=== PATIENT | female | born 1945 | race Caucasian/White ===

== ENCOUNTER → 2019-05-09 | Outpatient (CLI) | payer MEDICARE ==
--- NOTE | 2019-05-10 07:15 | ECHOF ---
Referral Reason:I10 hypertention MEASUREMENTS -------- HEIGHT: 160.0 cm WEIGHT: 83.9 kg BP: 179/113 RVIDd: 2.9 cm (< 3.3) IVSd: 1.5 cm (0.6 - 1.1) LVIDd: 3.6 cm (3.9 - 5.3) LVPWd: 1.3 cm (0.6 - 1.1) IVSs: 2.1 cm LVIDs: 2.5 cm LVPWs: 1.7 cm LA Diam: 3.2 cm (2.7 - 3.8) LAESV Index (A-L): 19.73 ml/m Ao Diam: 3.2 cm (2.0 - 3.7) AV Cusp: 1.9 cm (1.5 - 2.6) MV E Otoneil: 0.58 m/s MV DecT: 218 ms MV A Otoniel: 0.64 m/s MV E/A Ratio: 0.90 RAP: 5.00 mmHg RVSP: 27.32 mmHg FINDINGS -------- Sinus rhythm. This was a technically adequate study. The left ventricular size is normal. There is moderate concentric left ventricular hypertrophy. O verall left ventricular systolic function is normal with, an EF between 60 - 65 %. The right ventricle is normal in size. Normal LA size by volume 22+/-6 ml/m2. The right atrium is normal in size. Interatrial and interventricular septum intact. The aortic valve is trileaflet and appears structurally normal. The mitral valve is normal. Mild tricuspid regurgitation present. Right ventricular systolic pressure is normal at < 35 mmHg. The pulmonic valve was not well visualized. The aortic root size is normal. IVC Not well visulized. There is no pericardial effusion. CONCLUSIONS -------- 1. Sinus rhythm. 2. This was a technically adequate study. 3. The left ventricular size is normal. 4. There is moderate concentric left ventricular hypertrophy. 5. The right ventricle is normal in size. 6. Normal LA size by volume 22+/-6 ml/m2. 7. The right atrium is normal in size. 8. Interatrial and interventricular septum intact. 9. The aortic valve is trileaflet and appears structurally normal. 10. The mitral valve is normal. 11. Mild tricuspid regurgitation present. 12. Right ventricular systolic pressure is normal at < 35 mmHg. 13. The pulmonic valve was not well visualized. 14. The aortic root size is normal. 15. IVC Not well visulized. 16. There is no pericardial effusion. ZOOLOGY PROFESSOR: Nitza Rodríguez RDCS
--- NOTE | 2019-05-10 08:25 | EST ---
EXERCISE STRESS AGE: 73 SEX: F HT: 5'3" WT: 185 PROTOCOL: Jack Stress Test STAGE: 2 DURATION OF EXERCISE: 4:00 HEART RATE REST: 84 BLOOD PRESSURE REST: 179/113 MAXIMUM HEART RATE ACHIEVED: 140 MAXIMUM BLOOD PRESSURE: 259/105 85% MPHR: 127 100% MPHR: 148 METS: 5.6 INDICATIONS: Chest pain. CLINICAL INFORMATION: Baseline EKG revealed normal sinus rhythm without significant ST-T changes. There was poor R-wave progression over precordial leads patient walked on standard Jack protocol for 4 minutes, achieved a maximal heart rate of 140 beats per minute. Developed some chest discomfort. EKG revealed upsloping nonspecific ST-segment changes. The patient was hypertensive to begin with 179/104 and went up to 234/107/ EKG did not reveal any clear-cut ST-segment changes to indicate ischemia. Exercise capacity was limited. By EKG criteria, this is considered technically inconclusive stress test because of minor resting EKG changes. If myocardial ischemia cannot be excluded, exercise capacity was limited. Patient was hypertensive to begin with and had hypertensive response to exercise. If myocardial ischemia is suspected, this stress test should be repeated with better blood pressure control and pharmacological stress test may be a better approach. MMODL / IJN: [id number] /
== END | disposition home or self-care (01) ==
LOC: RADNMMAIN 09:52
PROVIDERS: ATTEND Internal Medicine
DX: I07.1 Rheumatic tricuspid insufficiency (principal); I10 Essential (primary) hypertension; R94.39 Abnormal result of other cardiovascular function study
CPT/HCPCS: 93017; 93306

== ENCOUNTER 2019-07-14 15:04 | Inpatient (IN) | payer MEDICARE ==
--- NOTE | 2019-07-14 17:54 | P.PN ---
Progress Note - Text Patient complained of being intolerant to amlodipine. We received a phone call this morning and we are asked to comment to the office She was seen by Lyndsey George She was complaining of discomfort in the chest at home. She had chest pain last night that lasted several hours and she had chest pain this morning again when she went to the store The stress test was read by Dr. Jimenez and was abnormal and showed evidence for ischemia Twelve-lead ECG shows shows sinus rhythm with a mildly prolonged NM interval and QRS width 121 ms with a left bundle branch block type morphology with some ST segment abnormality in V1 and V2 slightly different from baseline and no other definite ST segment abnormalities. She was sent to [facility] as a direct admit to [facility]. for admission and coronary angiography tomorrow She states she is intolerant of atorvastatin and losartan and possibly also amlodipine/benazepril and she gets dry heaves and throws up. She does not have a true ALLERGY. She state that she has been intolerant of multiple antihypertensive medications prescribed over the last [address] Lawton Currently the patient is chest pain-free Blood pressure is elevated 153/93 mmHg Normal heart sounds no murmurs or gallops no rub Plan Aspirin Heparin IV Crestor 20 mg by mouth daily Start carvedilol 6.25 mg twice daily Hold all other antihypertensive medications Prepare for coronary angiography tomorrow Admission labs
[2019-07-14] MEDS ORDERED: ALPRAZolam 0.5 MG TAB PO PRN (17:57)
[2019-07-14] MEDS ORDERED: HEPARIN SODIUM,PORCINE 5,000 UNIT/ML 1 ML VIAL IV PRN (18:16)
[2019-07-14] MEDS ORDERED: ASPIRIN 81 MG PO STA (18:16)
[2019-07-14] MEDS ORDERED: HEPARIN SODIUM,PORCINE 5,000 UNIT/ML 1 ML VIAL IV ONE (18:30)
[2019-07-14] MEDS ORDERED: METOPROLOL SUCCINATE (ER) 50 MG TAB.ER.24H PO SCH (18:30)
[2019-07-14] MEDS ORDERED: amLODIPine 10 MG TAB PO SCH (18:30)
[2019-07-14] MEDS ORDERED: CARVEDILOL 6.25 MG TAB PO SCH (18:30)
[2019-07-14] MEDS: NITROGLYCERIN SL TABS 0.4 MG TAB SUBLINGUAL PRN (18:58)
[2019-07-14] MEDS ORDERED: NITROGLYCERIN OINT 1 INCH/GM PACKET TOPICAL ONE (19:01)
[2019-07-14 19:33] LABS: Basophils # (A) 0.1 k/uL (0-0.2); Basophils % (A) 1 %; Eosinophils # (A) 0.1 k/uL (0-0.7); Eosinophils % (A) 1 %; HCT 47.1 % (34.0-46.0); HGB 15.8 gm/dL (11.4-16.0); Lymphocytes # (A) 3.8 k/uL (1.0-4.8); Lymphocytes % (A) 32 %; MCH 29.4 pg (25.0-35.0); MCHC 33.5 g/dL (31.0-37.0); MCV 87.7 fL (80.0-100.0); Mean Platelet Volume 8.5; Monocytes # (A) 0.9 k/uL (0-1.0); Monocytes % (A) 8 %; Neutrophils # (A) 6.7 k/uL (1.3-7.7); Neutrophils % (A) 57 %; Platelet Count 356 k/uL (150-450); RBC 5.37 m/uL (3.80-5.40); WBC 11.8 k/uL (3.8-10.6)
[2019-07-14 19:48] LABS: Albumin 5.2 g/dL (3.5-5.0); Calcium 10.7 mg/dL (8.4-10.2); Potassium 3.6 mmol/L (3.5-5.1); Total Bilirubin 0.7 mg/dL (0.2-1.3); Total Protein 8.7 g/dL (6.3-8.2)
[2019-07-14] MEDS: HEPARIN SOD,PORK IN 0.45% NACL 25,000 UNIT in 0.45% NACL 1 250ML.BAG IV SCH (20:07)
[2019-07-14 20:40] LABS: Partial Thromboplastin Time 24.2 sec (22.0-30.0); Prothrombin Time 10.3 sec (9.0-12.0)
[2019-07-14] MEDS: hydrALAZINE HCL 25 MG TAB PO SCH (21:00)
[2019-07-14] MEDS: ROSUVASTATIN CALCIUM 20 MG PO SCH (21:01)
[2019-07-14] MEDS: METOPROLOL SUCCINATE (ER) 50 MG TAB.ER.24H PO SCH (21:01)
[2019-07-14] MEDS: NITROGLYCERIN OINT 1 INCH/GM PACKET TOPICAL SCH (21:03)
[2019-07-15] MEDS: NITROGLYCERIN OINT 1 INCH/GM PACKET TOPICAL SCH ×5 (00:30→23:53)
[2019-07-15] MEDS ORDERED: NITROGLYCERIN SL TABS 0.4 MG TAB SUBLINGUAL ONE ×2 (03:32→07:51)
[2019-07-15 04:34] LABS: Basophils # (A) 0.1 k/uL (0-0.2); Basophils % (A) 1 %; Eosinophils # (A) 0.1 k/uL (0-0.7); Eosinophils % (A) 1 %; HCT 41.4 % (34.0-46.0); Lymphocytes # (A) 3.4 k/uL (1.0-4.8); Lymphocytes % (A) 35 %; MCH 29.9 pg (25.0-35.0); MCHC 33.8 g/dL (31.0-37.0); MCV 88.5 fL (80.0-100.0); Mean Platelet Volume 8.7; Monocytes # (A) 0.8 k/uL (0-1.0); Monocytes % (A) 8 %; Neutrophils # (A) 4.9 k/uL (1.3-7.7); Neutrophils % (A) 51 %; Platelet Count 337 k/uL (150-450); RBC 4.68 m/uL (3.80-5.40); WBC 9.7 k/uL (3.8-10.6)
[2019-07-15] MEDS ORDERED: SODIUM CHLORIDE 0.9% 1,000 ML in EMPTY BAG 1 BAG IV ONE ×2 (07:00→18:36)
[2019-07-15] MEDS: NITROGLYCERIN SL TABS 0.4 MG TAB SUBLINGUAL PRN (08:03)
[2019-07-15] MEDS ORDERED: ASPIRIN 81 MG PO STA (08:33)
[2019-07-15] MEDS: hydrALAZINE HCL 25 MG TAB PO SCH ×2 (08:38→21:02)
[2019-07-15] MEDS: METOPROLOL SUCCINATE (ER) 50 MG TAB.ER.24H PO SCH ×2 (08:38→21:02)
[2019-07-15] MEDS: ROSUVASTATIN CALCIUM 20 MG PO SCH (08:38)
[2019-07-15] MEDS ORDERED: HEPARIN SODIUM 1,000 UN/ML (10ML VL) ONE (10:15)
[2019-07-15] MEDS ORDERED: LIDOCAINE 1% INJ 10MG/ML (20 ML MDV) ONE (10:15)
[2019-07-15] MEDS ORDERED: VERAPAMIL 2.5 MG/ML 2 ML AMP ONE (10:15)
[2019-07-15] MEDS ORDERED: fentaNYL (PF) 50 MCG/ML 2 ML AMP ONE (10:17)
[2019-07-15] MEDS ORDERED: ASPIRIN 81 MG ONE (10:24)
[2019-07-15] MEDS ORDERED: IV FLUID CONTINUATION 400 ML IV ONE (10:26)
[2019-07-15] MEDS ORDERED: ASPIRIN 81 MG PO ONE (10:26)
[2019-07-15] MEDS ORDERED: fentaNYL (PF) 50 MCG/ML 2 ML AMP IV ONE (10:32)
[2019-07-15] MEDS ORDERED: MIDAZOLAM 2 MG/2 ML VIAL IVP ONE (10:32)
[2019-07-15] MEDS ORDERED: LIDOCAINE 1% INJ 10MG/ML (20 ML MDV) SQ ONE (10:36)
[2019-07-15] MEDS ORDERED: VERAPAMIL SYRINGE (5 MG/10 ML) INTRAARTER ONE (10:40)
[2019-07-15] MEDS ORDERED: HEPARIN SODIUM 1,000 UN/ML (10ML VL) IV ONE (10:42)
[2019-07-15] MEDS ORDERED: ONDANSETRON 4 MG/2 ML VIAL ONE (10:53)
[2019-07-15] MEDS ORDERED: ONDANSETRON 4 MG/2 ML VIAL IVP ONE (10:57)
[2019-07-15] MEDS ORDERED: RX INFO: IV CONTRAST WAS GIVEN 1 EACH MISC MISCELLANE PRN (11:04)
--- NOTE | 2019-07-15 11:15 | P.PCN ---
Date of Procedure: 07/15/19 Preoperative Diagnosis: Non-STEMI Postoperative Diagnosis: Severe triple-vessel disease Procedure(s) Performed: Left heart catheterization without left ventriculography Description of Procedure: HISTORY: This is a 73-year-old female with history of hypertension and hypercholesterolemia who was evaluated by stress test as an outpatient. Yesterday patient was seen in the office complaints of chest pain. Stress test showed partially reversible severe defect involving the anteroapical and septal area. Patient was admitted to the hospital for further evaluation and treatment. Her troponin values wentup up to 2. Patient is advised to have a cardiac catheterization for definitive diagnosis CONSENT:I have discussed the risks, benefits and alternative therapies for the above-mentioned procedure and for both sedation/analgesia as well as necessary blood product administration, if indicated, as they pertain to this patient. The patient has indicated understanding and acceptance of the risks and procedures discussed. [] PROCEDURE: Patient was brought to the lab in a fasting state. Patient was given some IV sedation. The right wrist is infiltrated with lidocaine and right radial artery was entered using Seldinger technique. A 6-Slovenian catheter was left in place and selective coronary arteriography was performed. Patient tolerated the procedure well. The sheath is left in place and patient was started on heparin. Patient is being evaluated for revascularization both by Skchino and also Don[facility]. Surgeon.. No immediate complications were noted and patient was transferred to [facility] in a stable condition Conscious Sedation: Versed 1mg Fentanyl 50 g Duration 19minutes HEMODYNAMICS: Aortic pressure is 140/70. Left ventricle end-diastolic pressures of 26 and there was no gradient across the aortic valv SELECTIVE CORONARY ARTERIOGRAPHY: LEFT MAIN: Normal length and free of occlusive disease THE LEFT ANTERIOR DESCENDING CORONARY ARTERY:. This i s a moderate caliber vessel with a diffuse disease with 95% stenosis proximally and about a long tubular 90% stenosis involving the mid LAD. The vessel is diffusely diseased. There is a diagonal branch which also has a 90% stenosis THE LEFT CIRCUMFLEX AND IS CORONARY ARTERY:. This a moderate caliber vessel with about 70% stenosis in midportion before the origin of the OM branch. The OM branch itself has about 70% lesion THE RIGHT CORONARY ARTERY:. This a dominant vessel giving rise to good-sized PDA and PLV. There is about 70-80% ostial stenosis. There is also 80-90% stenosis of the ostium of the PDA LEFT VENTRICULOGRAPHY: Not performed FINAL IMPRESSION:, Severe triple-vessel disease with critical lesion involving the proximal LAD, mid LAD, diagonal, ostial right and PDA and moderate disease in the midcircumflex and LV function by nuclear study was normal PLAN: Urgent consult with cardiac surgeon and also Dr. Morin for possible revascularization. Dr. Morin felt that she should have surgical evaluation. If the surgeons don't feel like this is a good candidate, he will proceed with stent placement of the LAD and the RCA PROGNOSIS: Guarded
[2019-07-15] MEDS ORDERED: IOPAMIDOL-370 125ML BTL INJ ONE (11:16)
[2019-07-15 11:42] LABS: Glucose,Whole Blood 160 mg/dL (75-99)
[2019-07-15] MEDS: NITROGLYCERIN-D5W PMX 50 MG in DEXTROSE/WATER 1 250ML.BAG IV SCH (11:44)
[2019-07-15] MEDS: SODIUM CHLORIDE 0.9% 1,000 ML IV SCH (11:44)
[2019-07-15] MEDS: ONDANSETRON 4 MG/2 ML VIAL IVP PRN ×2 (12:05→21:08)
[2019-07-15 12:11] LABS: Calcium 9.5 mg/dL (8.4-10.2); Potassium 3.6 mmol/L (3.5-5.1)
--- NOTE | 2019-07-15 12:26 | XR ---
EXAMINATION TYPE: XR chest 1V portable DATE OF EXAM: 07/15/2019 COMPARISON: 09/08/2008 HISTORY: Pre-op CABG TECHNIQUE: Single frontal view of the chest is obtained. FINDINGS: Left basilar subsegmental consolidation. Right lung clear. Heart size normal. No pneumotho rax. No interstitial edema. Arthropathy of the shoulders. IMPRESSION: Left basilar atelectasis or early infiltrate. Correlate clinically. Favor atelectasis.
--- NOTE | 2019-07-15 12:57 | P.GSCN ---
History of Present Illness Consult date: 07/15/19 Reason for Consult: Coronary artery disease Requesting physician: Anne-Marie Jimenez History of present illness: This is a 73-year-old active female who follows on an outpatient basis with Dr. Lawton. She has a previous medical history of hypertension, hyperlipidemia, skin cancer with removal approximately one year ago, and family history of coronary artery disease. She denies any history of diabetes, hypothyroidism, kidney or liver disease and is a lifelong nonsmoker. Apparently she has been experiencing episodes of intermittent substernal chest pain for the last month without radiation. She states the pain was primarily with activity until about a week ago when it began happening at rest as well. She denies any shortness of breath, nausea, dizziness, or any other symptoms. Her chest pain had been rel ieved with rest until recently, thus prompting her to report to [facility] for evaluation. She did have a stress test in April 2019 demonstrating possible reversible defect in the anterioapical and septal martinez. At that time she also had a transthoracic echocardiogram demonstrating normal left ventricular function with EF 60-65%, and mild tricuspid regurgitation. She was sent from the cardiology office straight to the hospital for direct admission with plans for heart catheterization which was completed today. The catheterization demonstrated proximal LAD stenosis 95%, mid LAD stenosis 90%, diagonal stenosis 90%, mid circumflex stenosis 70%, obtuse marginal artery stenosis 70%, ostial RCA stenosis 70-80%, and ostial PDA stenosis 80-90%. She continued to have chest pain and was transferred to the intensive care unit to be started on IV nitroglycerin. Consultation was placed for Dr. Savage from cardiothoracic surgery for recommendations regarding surgical revascularization. Review of Systems Review of systems was completed and was negative except as noted - Cardiovascular Reports as per HPI, Reports chest pain Past Medical History Past Medical History: Cancer, Chest Pain / Angina, Hyperlipidemia, Hypertension Additional Past Medical History / Comment(s): Skin cancer with removal approximately one year ago History of Any Multi-Drug Resistant Organisms: None Reported Past Surgical History: No Surgical Hx Reported Past Anesthesia/Blood Transfusion Reactions: No Reported Reaction Past Psychological History: No Psychological Hx Reported Smoking Status: Never smoker Past Drug Use History: None Reported - Past Family History Father Family Medical History: CVA/TIA, Diabetes Mellitus Additional Family Medical History / Comment(s): at 42 from a stroke Mother Family Medical History: No Reported History Additional Family Medical History / Comment(s): at 92 years old from old age Sister(s) Family Medical History: Coronary Artery Disease (CAD) Additional Family Medical History / Comment(s): overweight, enlarged heart, May 2018 Medications and Allergies Home Medications Medication Instructions Recorded Confirmed Type Aspirin EC [Ecotrin Low Dose] 81 mg PO ONCE PRN 07/14/19 07/14/19 History Metoprolol Succinate (ER) [Toprol 50 mg PO BID 07/14/19 07/14/19 History Xl] Nitroglycerin 0.4 mg SL Q5M PRN 07/14/19 07/14/19 History Rosuvastatin Calcium 20 mg PO DAILY 07/14/19 07/14/19 History amLODIPine [Norvasc] 10 mg PO DAILY 07/14/19 07/14/19 History hydrALAZINE HCL 25 mg PO BID 07/14/19 07/14/19 History Allergies Allergy/AdvReac Type Severity Reaction Status Date / Time amlodipine [From Lotrel] Allergy Unknown Verified 07/14/19 20:24 atenolol Allergy Unknown Verified 07/14/19 20:24 benazepril [From Lotrel] Allergy Unknown Verified 07/14/19 20:24 atorvastatin AdvReac Nausea & Verified 07/14/19 20:24 Vomiting losartan AdvReac Nausea & Verified 07/14/19 20:24 Vomiting Surgical - Exam Vital Signs Pulse Resp BP Pulse Ox 100 17 148/95 97 07/14/19 19:03 07/14/19 19:03 07/14/19 19:03 07/14/19 19:03 - General well developed, well nourished, no distress, no pain, obese - Eyes PERRL, normal ocular movement - ENT no hearing loss - Neck no masses, no bruits, trachea midline - Respiratory Lungs sounds clear bilaterally. Respirations even, nonlabored. Currently on 2 L nasal cannula with oxygen saturation 93%. No chest wall deformities. No clubbing or cyanosis present. - Cardiovascular S1, S2 present. Regular rate and rhythm, sinus rhythm on telemetry. Palpable peripheral pulses bilaterally. No edema present. No calf pain or tenderness noted. No varicosities noted. - Abdomen Abdomen: soft, non tender, bowel sounds - Genitourinary Deferred - Rectum Deferred - Integumentary no rash, no growths - Neurologic normal coordination, normal sensation - Musculoskeletal normal posture - Psychiatric Patient is a bit teary-eyed and emotional due to diagnosis oriented to time, oriented to person, oriented to place, speech is normal, memory intact Results - Labs 07/15/19 04:06 07/15/19 11:15 Abnormal Lab Results - Last 24 Hours (Table) 07/14/19 07/14/19 07/14/19 Range/Units 18:54 18:54 18:54 WBC 11.8 H (3.8-10.6) k/uL Hct 47.1 H (34.0-46.0) % APTT (22.0-30.0) sec BUN 26 H (7-17) mg/dL Creatinine 1.23 H (0.52-1.04) mg/dL Glucose 136 H (74-99) mg/dL POC Glucose (mg/dL) (75-99) mg/dL Calcium 10.7 H (8.4-10.2) mg/dL AST 47 H (14-36) U/L Troponin I 2.880 H* (0.000-0.034) ng/mL Total Protein 8.7 H (6.3-8.2) g/dL Albumin 5.2 H (3.5-5.0) g/dL Triglycerides 161 H (<150) mg/dL Cholesterol 202 H (<200) mg/dL LDL Cholesterol, Calc 127 H (0-99) mg/dL 07/15/19 07/15/19 07/15/19 Range/Units 01:39 04:06 11:15 WBC (3.8-10.6) k/uL Hct (34.0-46.0) % APTT 62.8 H (22.0-30.0) sec BUN 23 H (7-17) mg/dL Creatinine (0.52-1.04) mg/dL Glucose 146 H (74-99) mg/dL POC Glucose (mg/dL) (75-99) mg/dL Calcium (8.4-10.2) mg/dL AST (14-36) U/L Troponin I 2.180 H* (0.000-0.034) ng/mL Total Protein (6.3-8.2) g/dL Albumin (3.5-5.0) g/dL Triglycerides (<150) mg/dL Cholesterol (<200) mg/dL LDL Cholesterol, Calc (0-99) mg/dL 07/15/19 Range/Units 11:30 WBC (3.8-10.6) k/uL Hct (34.0-46.0) % APTT (22.0-30.0) sec BUN (7-17) mg/dL Creatinine (0.52-1.04) mg/dL Glucose (74-99) mg/dL POC Glucose (mg/dL) 160 H (75-99) mg/dL Calcium (8.4-10.2) mg/dL AST (14-36) U/L Troponin I (0.000-0.034) ng/mL Total Protein (6.3-8.2) g/dL Albumin (3.5-5.0) g/dL Triglycerides (<150) mg/dL Cholesterol (<200) mg/dL LDL Cholesterol, Calc (0-99) mg/dL Diabetes panel 07/14/19 07/15/19 Range/Units 18:54 11:15 Sodium 141 139 (137-145) mmol/L Potassium 3.6 3.6 (3.5-5.1) mmol/L Chloride 100 106 (98-107) mmol/L Carbon Dioxide 27 22 (22-30) mmol/L BUN 26 H 23 H (7-17) mg/dL Creatinine 1.23 H 1.01 (0.52-1.04) mg/dL Glucose 136 H 146 H (74-99) mg/dL Calcium 10.7 H 9.5 (8.4-10.2) mg/dL AST 47 H (14-36) U/L ALT 28 (4-34) U/L Alkaline Phosphatase 72 (38-126) U/L Total Protein 8.7 H (6.3-8.2) g/dL Albumin 5.2 H (3.5-5.0) g/dL Triglycerides 161 H (<150) mg/dL HDL Cholesterol 43 (40-60) mg/dL Thyroid panel 07/14/19 Range/Units 18:54 TSH 0.665 (0.465-4.680) mIU/L Calcium panel 01/02/20 01/03/20 Range/Units 18:54 11:15 Calcium 10.7 H 9.5 (8.4-10.2) mg/dL Albumin 5.2 H (3.5-5.0) g/dL Pituitary panel 07/14/19 07/15/19 Range/Units 18:54 11:15 Sodium 141 139 (137-145) mmol/L Potassium 3.6 3.6 (3.5-5.1) mmol/L Chloride 100 106 (98-107) mmol/L Carbon Dioxide 27 22 (22-30) mmol/L BUN 26 H 23 H (7-17) mg/dL Creatinine 1.23 H 1.01 (0.52-1.04) mg/dL Glucose 136 H 146 H (74-99) mg/dL Calcium 10.7 H 9.5 (8.4-10.2) mg/dL TSH 0.665 (0.465-4.680) mIU/L Adrenal panel 07/14/19 07/15/19 Range/Units 18:54 11:15 Sodium 141 139 (137-145) mmol/L Potassium 3.6 3.6 (3.5-5.1) mmol/L Chloride 100 106 (98-107) mmol/L Carbon Dioxide 27 22 (22-30) mmol/L BUN 26 H 23 H (7-17) mg/dL Creatinine 1.23 H 1.01 (0.52-1.04) mg/dL Glucose 136 H 146 H (74-99) mg/dL Calcium 10.7 H 9.5 (8.4-10.2) mg/dL Total Bilirubin 0.7 (0.2-1.3) mg/dL AST 47 H (14-36) U/L ALT 28 (4-34) U/L Alkaline Phosphatase 72 (38-126) U/L Total Protein 8.7 H (6.3-8.2) g/dL Albumin 5.2 H (3.5-5.0) g/dL - Imaging Chest x-ray: report reviewed, image reviewed EKG: image reviewed Additional studies: Heart catheterization films reviewed Assessment and Plan Assessment: 1. Triple-vessel coronary artery disease. 2. Hypertension 3. Hyperlipidemia 4. History of skin cancer with removal 5. Family history of coronary artery disease Plan: The patient was seen and examined at the bedside. Chart/diagnostics reviewed. The usual perioperative course of coronary artery bypass graft surgery was discussed in detail with the patient, risks and benefits were reviewed, questions were answered. Will discuss case in detail with Dr. Savage who will be here this afternoon to examine the patient and review her heart catheterization films. Preoperative testing initiated. We recommend continuing to maximize medical therapy with aspirin, statin, beta blockers. The patient is currently having no chest pain since initiation of IV nitroglycerin. Will calculate STS risk score once all preoperative testing has been completed. More recommendations to follow. Thank you Dr. Jimenez for this consult. We look forward to working with you in the care of your patient. Time with Patient: Greater than 30
--- NOTE | 2019-07-15 13:36 | US ---
EXAMINATION TYPE: US carotid duplex BILAT DATE OF EXAM: 07/15/2019 COMPARISON: NONE CLINICAL HISTORY: preoperative cabg. CAD EXAM MEASUREMENTS: RIGHT: Peak Systolic Velocity (PSV) cm/sec ----- Right CCA: 80.8 ----- Right ICA: 89.5 ----- Right ECA: 73.5 ICA/CCA ratio: 1.1 RIGHT: End Diastole cm/sec ----- Right CCA: 16.9 ----- Right ICA: 21.2 ----- Right ECA: 0.0 LEFT: Peak Systolic Velocity (PSV) cm/sec ----- Left CCA: 69.4 ----- Left ICA: 66.8 ----- Left ECA: 72.0 ICA/CCA ratio: 1.0 LEFT: End Diastole cm/sec ----- Left CCA: 20.2 ----- Left ICA: 21.5 ----- Left ECA: 0.0 VERTEBRALS (direction of flow): Right Vertebral: Antegrade Left Vertebral: Antegrade Rhythm: Normal Mild to moderate intimal wall changes are noted bilaterally, but PSV is wnl. IMPRESSION: Mild to moderate atherosclerotic changes with no significant hemodynamic stenosis. Criteria for Assigning % of Stenosis / Diameter reduction (Estimation based on the indirect measurements of the internal carotid artery velocities (ICA PSV). 1. Normal (no stenosis)=ICA PSV < 125 cm/s: ratio < 2.0: ICA EDV<40 cm/s. 2. Less than 50% stenosis=ICA PSV < 125 cm/s: ratio < 2.0: ICA EDV<40 cm/s. 3. 50 to 69% stenosis=ICA PSV of 125 to 230 cm/s: ration 2.0 ? 4.0: ICA EDV 40-100 cm/s. 4. Greater than 70% stenosis to near occlusion= ICA PSV > 230 cm/s: ratio > 4.0: ICA EDV > 100 cm/s. 5. Near occlusion= ICA PSV velocities may be low or undetectable: variable ratio and ICA EDV. 6. Total occlusion=unable to detect flow.
--- NOTE | 2019-07-15 14:39 | CONS ---
CONSULTATION PULMONARY/CRITICAL CARE CONSULTATION: DATE OF SERVICE: 07/15/2019 This is a 73-year-old female who underwent cardiac catheterization. The procedure was done by Dr. Jimenez. She was found to have a moderate caliber left anterior descending coronary artery with 95% stenosis. The left circumflex coronary artery had a 70% stenosis in the right coronary artery, had about a 70% and 80% ostial stenosis. The patient is being considered by Dr. Savage for bypass grafting. The patient is doing best relatively well. She is resting comfortably in the ICU. She is feeling a little weak. She denies any shortness of breath or chest pain. The patient otherwise is feeling reasonably well. She denies any lung issues. Specifically, she denies any asthma, emphysema, chronic bronchitis, COPD, and she is a lifelong nonsmoker. . HOME MEDICATIONS: Include hydralazine, amlodipine, Crestor, nitroglycerin, metoprolol and aspirin. Her medical history includes hypertension and hyperlipidemia. She also has a history of obviously now of CAD or coronary artery disease. She denies any lung issues. Past medical history is also positive for angina and skin cancer. Allergies include AMLODIPINE, ATENOLOL, BENAZEPRIL, ATORVASTATIN, and LOSARTAN. SURGICAL HISTORY: Unremarkable. SOCIAL HISTORY: Negative for tobacco use, alcohol use or illicit drug use. FAMILY HISTORY: Positive for a father with CVA and diabetes, mother without any major medical problems and a sister with CAD. REVIEW OF SYSTEMS: CONSTITUTIONAL: Negative. NEUROLOGIC: Negative. HEENT: Negative. CARDIOVASCULAR: Chest pain. PULMONARY: Negative. GI: Negative. : Negative. RHEUMATOLOGIC: Negative. IMMUNOLOGIC: Negative. ENDOCRINOLOGIC: Negative. DERMATOLOGIC: Negative. Current vital signs are reviewed, temperature is 97.9, heart rate 100, respiratory rate 20, blood pressure 115/79 mean 91, saturations on 2 L are 97%. Appears in no acute distress. HEENT: Examination is grossly unremarkable. Mucous membranes are moist. No oral lesions. NECK: Supple, full range of motion. No adenopathy or thyromegaly. Neck veins are flat. CARDIOVASCULAR: Examination reveals regular rhythm and rate. S1, S2 normal. No S3, S4, murmur. LUNGS: Reveal clear breath sounds. No wheezes, rhonchi, or crackles. ABDOMEN: Soft bowel sounds are heard. No masses or tenderness. EXTREMITIES: Intact. No cyanosis, clubbing, or edema. SKIN: Without rash. NEUROLOGIC: Examination is brief but nonfocal. LAB DATA: Reviewed. White count 9.7, hemoglobin 14, hematocrit 41.4, platelet count 337,000 PT, INR and PTT normal. Sodium, potassium, chloride, CO2 all normal, anion gap normal. BUN and creatinine were 23 and 1.01. Troponin was 2.180. ASSESSMENT: 1. Non ST-segment elevation myocardial infarction. 2. Three-vessel coronary artery disease. 3. History of hypertension. 4. History of hyperlipidemia. 5. History of skin cancer. 6. Lifelong nonsmoker. 7. History of angina pectoris. PLAN: The patient's pulmonary function tests were done today. Spirometry revealed a relatively normal FEV1. She does not have any substantial chronic lung disease. The patient should be good to go for surgery if that this decision. There us a chance that she will go back to [facility] for stenting. Dr. Savage has yet to see her. Additional recommendations and suggestions are forthcoming. I did introduce myself to the patient today. I did tell her that the patient will come back to the operating room. Should that be the decision, on mechanical ventilator and we will attempt to get her off the ventilator. Given the fact that her lung function is relatively normal, she should have no problems. She is a lifelong nonsmoker. and denies all pulmonary issues. MMODL / IJN: [id number] /
--- NOTE | 2019-07-15 16:31 | ECHOF ---
Referral Reason:assess lvf MEASUREMENTS -------- HEIGHT: 152.4 cm WEIGHT: 59.0 kg BP: IVSd: 1.6 cm (0.6 - 1.1) LVIDd: 3.6 cm (3.9 - 5.3) LVPWd: 1.9 cm (0.6 - 1.1) IVSs: 1.9 cm LVIDs: 2.5 cm LVPWs: 2.1 cm LA Diam: 3.2 cm (2.7 - 3.8) LAESV Index (A-L): 22.85 ml/m Ao Diam: 2.6 cm (2.0 - 3.7) AV Cusp: 1.3 cm (1.5 - 2.6) LA Diam: 3.2 cm (2.7 - 3.8) MV E Otoniel: 0.30 m/s MV DecT: 200 ms MV A Otoniel: 0.49 m/s MV E/A Ratio: 0.61 RAP: 5.00 mmHg RVSP: 15.77 mmHg FINDINGS -------- Sinus rhythm. This was a technically adequate study. The left ventricular size is normal. There is severe concentric left ventricular hypertrophy. The re is normal global left ventricular contractility. Overall left ventricular systolic function is l ow-normal with, an EF between 50 - 55 %. The right ventricle is normal in size. The left atrial size is normal. The right atrial size is normal. There is mild aortic valve sclerosis. There is no evidence of aortic regurgitation. Mild mitral annular calcification present. Mild mitral regurgitation is present. Mild tricuspid regurgitation present. Right ventricular systolic pressure is normal at < 35 mmHg. There is no evidence of pulmonary hypertension. The pulmonic valve was not well visualized. The aortic root size is normal. Echo free space represents a pericardial fat pad. CONCLUSIONS -------- 1. Sinus rhythm. 2. This was a technically adequate study. 3. The left ventricular size is normal. 4. There is severe concentric left ventricular hypertrophy. 5. Overall left ventricular systolic function is low-normal with, an EF between 50 - 55 %. 6. The right ventricle is normal in size. 7. The left atrial size is normal. 8. The right atrial size is normal. 9. There is mild aortic valve sclerosis. 10. Mild mitral annular calcification present. 11. Mild mitral regurgitation is present. 12. Mild tricuspid regurgitation present. 13. Right ventricular systolic pressure is normal at < 35 mmHg. 14. There is no evidence of pulmonary hypertension. 15. The pulmonic valve was not well visualized. 16. The aortic root size is normal. 17. Echo free space represents a pericardial fat pad. SEAM FELLER: Priscilla Reid RDCS
[2019-07-15] MEDS ORDERED: METOPROLOL TARTRATE 5 MG/5 ML VIAL IVP ONE (18:20)
[2019-07-15] MEDS ORDERED: METOPROLOL TARTRATE 5 MG/5 ML VIAL IVP STA (18:22)
--- NOTE | 2019-07-15 18:23 | P.PN ---
Progress Note - Text Progress Note Date: 07/15/19 This is a very pleasant 73-year-old female patient with a past medical history significant for hypertension as well as dyslipidemia who was admitted to the hospital with a chest discomfort and ruled in for acute non-ST elevation myocardial infarction. The patient was seen and evaluated by Dr. Jimenez who recommended proceeding with coronary angiogram. The coronary angiogram revealed severe triple-vessel coronary artery disease. Dr. Jimenez asked me to review the angiogram and I did recommend the patient be seen by cardiothoracic surgeon for the evaluation of coronary artery bypass grafting. The surgeon seen the patient but unfortunately the patient refused to go through the surgery and she would like to go with percutaneous coronary intervention. Currently the patient is in the intensive care unit and currently she is on heparin IV as well as nitro IV. Currently she is chest pain-free. I was called by Dr. Jimenez to assess the patient for stenting. I came into the room where I discussed her case in details with her as well as with her family. I did tell the patient as well as her family that I am going to pursue with coronary artery stenting to be done tomorrow morning, knowing that her case is very high risk giving her anatomy with diffuse disease as well as multiple area of disease as well as coronary calcifications. The patient and her family are in full understanding and they would like to pursue with a coronary artery stenting to be done. Meanwhile I am going to continue the current medical regimen which include heparin IV as well as nitroglycerin. Beside that I am going to add aspirin as well as high intensity statin to the current medical regimen. She is on high-dose metoprolol which we will continue.
[2019-07-15] MEDS ORDERED: ATORVASTATIN 80 MG TAB PO STA (18:36)
[2019-07-15] MEDS: HEPARIN SOD,PORK IN 0.45% NACL 25,000 UNIT in 0.45% NACL 1 250ML.BAG IV SCH (19:02)
[2019-07-15] MEDS ORDERED: ATORVASTATIN 80 MG TAB PO SCH (21:00)
[2019-07-15 21:02] LABS: Hepatitis A Antibody IgM Non-Reactive (Non-Reactive); Hepatitis B Core IgM Non-Reactive (Non-Reactive); Hepatitis B Surface Antigen Non-Reactive (Non-Reactive); Hepatitis C IgG Antibody Non-Reactive (Non-Reactive)
[2019-07-15 21:25] LABS: Hemoglobin A1C 6.3 % (4.0-6.0)
[2019-07-16] MEDS ORDERED: ATORVASTATIN 80 MG TAB PO ONE (05:00)
[2019-07-16] MEDS ORDERED: ASPIRIN 325 MG TAB PO ONE (05:00)
[2019-07-16] MEDS: ONDANSETRON 4 MG/2 ML VIAL IVP PRN (05:43)
[2019-07-16 05:50] LABS: Basophils % (A) 0 %; Eosinophils % (A) 0 %; HCT 39.6 % (34.0-46.0); HGB 13.1 gm/dL (11.4-16.0); Lymphocytes # (A) 2.4 k/uL (1.0-4.8); Lymphocytes % (A) 26 %; MCV 87.9 fL (80.0-100.0); Mean Platelet Volume 8.3; Monocytes # (A) 0.7 k/uL (0-1.0); Monocytes % (A) 7 %; Neutrophils % (A) 65 %; Platelet Count 300 k/uL (150-450); WBC 9.2 k/uL (3.8-10.6)
[2019-07-16 05:59] LABS: Calcium 9.1 mg/dL (8.4-10.2); Potassium 3.7 mmol/L (3.5-5.1)
[2019-07-16] MEDS ORDERED: Potassium Replacement Protocol 1 EACH MISC MISCELLANE PRN (06:03)
[2019-07-16] MEDS: ALPRAZolam 0.25 MG TAB PO PRN (06:14)
[2019-07-16] MEDS: NITROGLYCERIN OINT 1 INCH/GM PACKET TOPICAL SCH (06:15)
[2019-07-16] MEDS: SODIUM CHLORIDE 0.9% 1,000 ML IV SCH (06:19)
[2019-07-16] MEDS ORDERED: POTASSIUM CHLORIDE ER 20 MEQ TAB.ER PO SCH (07:00)
[2019-07-16] MEDS ORDERED: LIDOCAINE 1% INJ 10MG/ML (20 ML MDV) ONE (07:10)
[2019-07-16] MEDS ORDERED: HYDROmorphone 1 MG/ML 1 ML SYRINGE ONE (07:22)
[2019-07-16] MEDS ORDERED: LIDOCAINE 1% INJ 10MG/ML (20 ML MDV) SQ ONE (07:28)
[2019-07-16] MEDS ORDERED: MIDAZOLAM 2 MG/2 ML VIAL IVP ONE (07:28)
[2019-07-16] MEDS ORDERED: BIVALIRUDIN 250 MG in SODIUM CHLORIDE 0.9% 50 ML IV ONE (07:32)
[2019-07-16] MEDS ORDERED: BIVALIRUDIN BOLUS 250 MG/50 ML IV ONE (07:32)
[2019-07-16] MEDS ORDERED: FUROSEMIDE 10 MG/ML 4 ML VIAL ONE (07:35)
[2019-07-16] MEDS ORDERED: IV FLUID CONTINUATION 1,000 ML IV ONE (07:37)
[2019-07-16] MEDS ORDERED: FUROSEMIDE 10 MG/ML 4 ML VIAL IV ONE (07:37)
[2019-07-16] MEDS ORDERED: TICAGRELOR 90 MG TAB ONE (07:49)
[2019-07-16] MEDS ORDERED: TICAGRELOR 90 MG TAB PO ONE (07:49)
[2019-07-16] MEDS ORDERED: IOPAMIDOL-370 125ML BTL INJ ONE (08:11)
[2019-07-16] MEDS ORDERED: HYDROmorphone 1 MG/ML 1 ML SYRINGE IVP ONE (08:13)
[2019-07-16] MEDS ORDERED: NITROGLYCERIN SL TABS 0.4 MG TAB SUBLINGUAL PRN (08:21)
[2019-07-16] MEDS ORDERED: ZOLPIDEM 5 MG TAB PO PRN (08:21)
[2019-07-16] MEDS ORDERED: ATROPINE SULFATE 0.1 MG/ML 10ML SYRINGE IV PRN (08:21)
[2019-07-16] MEDS ORDERED: MAG HYDROX/AL HYDROX/SIMETH 30 ML CUP PO PRN (08:21)
[2019-07-16] MEDS ORDERED: RX INFO: IV CONTRAST WAS GIVEN 1 EACH MISC MISCELLANE PRN (08:21)
[2019-07-16] MEDS ORDERED: SODIUM CHLORIDE 0.9% 1,000 ML IV SCH (08:30)
[2019-07-16] MEDS ORDERED: ONDANSETRON 4 MG/2 ML VIAL IVP STA (08:50)
[2019-07-16] MEDS ORDERED: IOPAMIDOL-370 100ML BTL INJ ONE (08:50)
[2019-07-16] MEDS ORDERED: ASPIRIN 325 MG TAB PO SCH (09:00)
--- NOTE | 2019-07-16 09:11 | PTCA ---
PERCUTANEOUSTRANS CORORONARY ANGIOGRAPHY DATE OF SERVICE: 07/16/2009 PERFORMING PHYSICIAN: Christiano Jacobs MD. PROCEDURE PERFORMED: 1. Successful stenting of the distal left anterior descending artery using 2.5 x 38 mm Xience LISA with an excellent angiographic results and reduction of stenosis from 99% to 0%. 2. Successful stenting of the mid left anterior descending artery using 3.0 x 23 mm Xience LISA with an excellent angiographic result and reduction of stenosis from 99% to 0%. 3. Successful stenting of the proximal left anterior descending artery using 3.5 x 28 mm Xience LISA with an excellent angiographic result and reduction of stenosis from 99% to 0%. INDICATION: This is a very pleasant 73-year-old female patient with history of hypertension and dyslipidemia who was admitted to the hospital with chest discomfort and ruled in for acute vgq-ZI-urinifvat myocardial infarction. She was seen by Dr. Jimenez who performed a heart catheterization on her. The heart catheterization revealed calcified right and left coronary systems with severe triple-vessel coronary artery disease in diffuse nature. Because of that, cardiothoracic surgeon was placed and the patient was seen by surgeon who recommended proceeding with coronary artery bypass grafting. The patient refused to go through the surgery. I did come last night and talk to the patient in details about the procedure and about the high risk features of the procedure, which include angioplasty and stenting and in spite of that, the patient and the family would like to pursue with that. APPROACH: Right common femoral artery. COMPLICATION: None. LEVEL OF SEDATION: Moderate with a sedation length of 50 minutes. PROCEDURE DESCRIPTION: After obtaining an informed consent, the patient was brought to the cardiac cardiac cath technician. The right common femoral artery was cannulated using micropuncture technique. The micropuncture wire passed easily, then I placed a 6-Zambian sheath 11 cm in the right common femoral artery. After that anticoagulation was initiated using Angiomax with bolus and drip. I did engage the left main using an XP35 LAD guide. I did wire the LAD using a whisper J-wire. The wire was advanced all the way to the distal LAD which was tortuous. Subsequently, I did balloon angioplasty of the distal, mid, and proximal LAD using 2.0 x 12 mm balloon. After that, distally I placed 2.5 x 38 mm Xience LISA where the stent was positioned under fluoroscopy guidance and deployed under 12 atmospheres for about 20 seconds. In the mid LAD, I placed 3.0 x 23 mm Xience LISA as well where the stent was positioned again under fluoroscopy guidance and deployed under 12 atmospheres for 20 seconds. I did make sure that there was about 2 mm overlap between the distal and mid stent. For the proximal LAD, I deployed 3.5 x 28 mm Xience LISA as well where the stent was positioned under fluoroscopy guidance as well and deployed under 12 atmospheres for 20 seconds. I also made sure that there was 2 mm overlap between the mid and proximal stent. After that, I did postdilatation of the stents. For the proximal LAD stent, I post dilated using 3.75 x 15 mm NC balloon. For the mid LAD stent, I post dilated using 3.0 mm NC balloon. The final angiogram showed excellent angiographic results with reduction of stenosis from 99% to 0% with BLAS-3 flow and good myocardial blush. There was some sluggish flow in the diagonal in the mid LAD. The patient was chest-pain free by the end of the procedure. POSTPROCEDURE MANAGEMENT: 1. Dual anti-platelet therapy. 2. Risk factors modifications. 3. Follow up with the patient. MMODL / IJN: [id number] /
[2019-07-16] MEDS: NITROGLYCERIN-D5W PMX 50 MG in DEXTROSE/WATER 1 250ML.BAG IV SCH (09:14)
[2019-07-16] MEDS: METOPROLOL SUCCINATE (ER) 50 MG TAB.ER.24H PO SCH ×2 (10:38→20:51)
[2019-07-16] MEDS: ASPIRIN 81 MG PO SCH (10:42)
[2019-07-16] MEDS: TICAGRELOR 90 MG TAB PO SCH ×2 (10:43→20:51)
[2019-07-16] MEDS: hydrALAZINE HCL 25 MG TAB PO SCH ×2 (10:46→20:51)
[2019-07-16] MEDS ORDERED: METOCLOPRAMIDE 5 MG/ML 2 ML VIAL IVP PRN (12:10)
[2019-07-17 05:30] LABS: Basophils % (A) 0 %; Eosinophils % (A) 0 %; HCT 39.8 % (34.0-46.0); HGB 13.2 gm/dL (11.4-16.0); Lymphocytes # (A) 2.6 k/uL (1.0-4.8); Lymphocytes % (A) 21 %; MCH 29.5 pg (25.0-35.0); MCHC 33.1 g/dL (31.0-37.0); MCV 89.2 fL (80.0-100.0); Mean Platelet Volume 8.1; Monocytes # (A) 0.8 k/uL (0-1.0); Monocytes % (A) 6 %; Neutrophils # (A) 8.8 k/uL (1.3-7.7); Neutrophils % (A) 71 %; Platelet Count 288 k/uL (150-450); RBC 4.47 m/uL (3.80-5.40); WBC 12.4 k/uL (3.8-10.6)
[2019-07-17 05:36] LABS: Calcium 9.2 mg/dL (8.4-10.2); Potassium 3.4 mmol/L (3.5-5.1)
[2019-07-17] MEDS ORDERED: Potassium Replacement Protocol 1 EACH MISC MISCELLANE PRN (06:00)
[2019-07-17] MEDS: POTASSIUM CHLORIDE ER 20 MEQ TAB.ER PO SCH ×2 (06:39→08:33)
[2019-07-17] MEDS: METOPROLOL SUCCINATE (ER) 50 MG TAB.ER.24H PO SCH ×2 (08:33→20:22)
[2019-07-17] MEDS: hydrALAZINE HCL 25 MG TAB PO SCH ×2 (08:33→20:23)
[2019-07-17] MEDS: ASPIRIN 81 MG PO SCH (08:33)
[2019-07-17] MEDS: CRESTOR 20 MG PO SCH (08:34)
[2019-07-17] MEDS: TICAGRELOR 90 MG TAB PO SCH ×2 (08:34→20:22)
[2019-07-17] MEDS ORDERED: CRESTOR 20 MG PO SCH (09:00)
--- NOTE | 2019-07-17 13:02 | P.PN ---
Subjective Progress Note Date: 07/17/19 This is a 73-year-old female patient with a past medical history significant for hypertension, dyslipidemia who was admitted to the hospital with a chest discomfort and ruled in for acute non-ST elevation myocardial infarction. The patient was seen and evaluated by Dr. Jimenez who recommended proceeding with coronary angiogram. The coronary angiogram revealed severe triple-vessel coronary artery disease. Dr. Jimenez asked Dr. Jacobs to review the angiogram and he recommended the patient be seen by cardiothoracic surgeon for the evaluation of coronary artery bypass grafting. The surgeon saw the patient but unfortunately the patient refused to go through the surgery and she would like to go with percutaneous coronary intervention. Currently the patient is in the intensive care unit and currently she is on heparin IV as well as nitro IV. Currently she is chest pain-free. 07/17: Yesterday, patient underwent PTCA and stenting of the distal mid and proximal LAD and patient was returned to the intensive care unit. She is known to need stenting of the RCA and circumflex as well. Patient has been hemodynamically stable. BUN 21 and creatinine 1.02. WBC 12.4, hemoglobin 13.2, potassium 3.4 was replaced. Patient currently denies any chest pain, shortness of breath, lightheadedness or dizziness. She has ambulated in her room and down the hallway to the shower without symptoms. Patient is clear for transfer to the cardiac stepdown unit. Repeat lab work for tomorrow to assess the patient will be candidate for PTCA of the RCA and circumflex on this admission or this may be done as an outpatient. Plan discussed with the patient and her and they verbalized understanding. Physical exam: Afebrile, heart rate 82, blood pressure 125/71, pulse ox 95% on room air Gen: This is a 73-year-old female. She is sitting in a recliner and appears to be comfortable and in no acute distress. HEENT: Head is atraumatic, normocephalic. Pupils equal, round. Sclerae is anicteric. NECK: Supple. No JVD. No lymphadenopathy. No thyromegaly. LUNGS: Clear to auscultation. No wheezes or rhonchi. No intercostal retractions. HEART: Regular rate and rhythm. No murmur. ABDOMEN: Soft. Bowel sounds are present. No masses. No tenderness. EXTREMITIES: Trace bilateral pedal edema, dorsalis pedis +2 bilaterally. No calf tenderness. NEUROLOGICAL: Patient is awake, alert and oriented x3. Cranial nerves 2 through 12 are grossly intact. Assessment: Non-ST elevated myocardial infarction status post PTCA and stenting of the distal mid and proximal LAD Significant disease in the RCA and circumflex to undergo PTCA during this hospitalization or in the near future Hypertension Hyperlipidemia Plan: Continue aspirin 80 mg daily, Toprol-XL 50 mg twice daily, [place] to 90 mg twice daily Continue Crestor 20 mg daily, patient unable to tolerate Lipitor which causes nausea and vomiting Repeat basic metabolic panel in the morning Possible PTCA on this admission Recommendations to follow based upon clinical course. Nurse practitioner note has been reviewed, I agree with documented findings and plan of care. Patient was seen and examined. Objective - Vital Signs Vital signs: Vital Signs Temp 98.7 F 07/17/19 08:00 Pulse 82 07/17/19 10:00 Resp 12 07/17/19 10:00 BP 125/71 07/17/19 10:00 Pulse Ox 95 07/17/19 10:00 Intake & Output 07/16/19 07/17/19 07/17/19 18:59 06:59 18:59 Intake Total 1309.425 350 480 Output Total 1100 0 0 Balance 209.425 350 480 Weight 59.5 kg Intake: IV 765 50 Sodium Chloride 0.9% 1, 50 50 000 ml @ 50 mls/hr IV . Q20H [facility] Rx#:[id number] Sodium Chloride 0.9% 1, 540 000 ml In Empty Bag 1 bag @ 1 ML/KG/HR 59.5 mls/hr IV .[id number] ONE Rx#: [id number] Intake, IV Titration 64.425 Amount Nitroglycerin-D5w Pmx 50 64.425 mg In Dextrose/Water 1 250ml.bag @ 5 MCG/MIN 1.5 mls/hr IV .Q24H [facility] Rx#: [id number] Oral 480 300 480 Output: Urine 1000 0 0 Emesis 100 Other: Voiding Method Bedpan Toilet Toilet # Voids 1 # Bowel Movements 1 ABP, PAP, CO, CI - Last Documented Arterial Blood Pressure 158/68 - Exam Gen: This is [ ] HEENT: Head is atraumatic, normocephalic. Pupils equal, round. Sclerae is anicteric. NECK: Supple. No JVD. No lymphadenopathy. No thyromegaly. LUNGS: Clear to auscultation. No wheezes or rhonchi. No intercostal retractions. HEART: Regular rate and rhythm. No murmur. ABDOMEN: Soft. Bowel sounds are present. No masses. No tenderness. EXTREMITIES: No pedal edema. No calf tenderness. NEUROLOGICAL: Patient is awake, alert and oriented x3. Cranial nerves 2 through 12 are grossly intact. - Labs CBC & Chem 7: 07/17/19 04:38 07/17/19 04:38 Labs: Abnormal Lab Results - Last 24 Hours (Table) 07/17/19 07/17/19 Range/Units 04:38 04:38 WBC 12.4 H (3.8-10.6) k/uL Neutrophils # 8.8 H (1.3-7.7) k/uL Potassium 3.4 L (3.5-5.1) mmol/L BUN 21 H (7-17) mg/dL Glucose 107 H (74-99) mg/dL Microbiology - Last 24 Hours (Table) 07/15/19 14:20 Nasal Screen MRSA/MSSA - Final Nasopharyngeal Swab
[2019-07-18 05:19] LABS: Basophils % (A) 0 %; Eosinophils # (A) 0.1 k/uL (0-0.7); Eosinophils % (A) 1 %; HGB 12.6 gm/dL (11.4-16.0); Lymphocytes # (A) 2.8 k/uL (1.0-4.8); Lymphocytes % (A) 26 %; MCH 30.6 pg (25.0-35.0); MCHC 34.1 g/dL (31.0-37.0); MCV 89.9 fL (80.0-100.0); Mean Platelet Volume 7.8; Monocytes # (A) 0.8 k/uL (0-1.0); Monocytes % (A) 7 %; Neutrophils % (A) 64 %; Platelet Count 265 k/uL (150-450); RBC 4.11 m/uL (3.80-5.40); RDW 13.1 % (11.5-15.5); WBC 10.9 k/uL (3.8-10.6)
[2019-07-18 05:28] LABS: Calcium 9.2 mg/dL (8.4-10.2)
[2019-07-18] MEDS: TICAGRELOR 90 MG TAB PO SCH ×2 (08:56→21:57)
[2019-07-18] MEDS: hydrALAZINE HCL 25 MG TAB PO SCH ×2 (08:56→21:57)
[2019-07-18] MEDS: METOPROLOL SUCCINATE (ER) 50 MG TAB.ER.24H PO SCH ×2 (08:56→21:57)
[2019-07-18] MEDS: ASPIRIN 81 MG PO SCH (08:56)
[2019-07-18] MEDS: CRESTOR 20 MG PO SCH (08:59)
[2019-07-18] MEDS ORDERED: ATORVASTATIN 40 MG TAB PO SCH (09:00)
--- NOTE | 2019-07-18 10:09 | PN ---
PROGRESS NOTE Mrs. Garrett had a stent of LAD performed by Dr. Jacobs. She has multivessel disease calcified lesions. Refused open-heart surgery. I am going continue Crestor 20 mg daily. Will add 25 mg of losartan at bedtime. She has disease in the circumflex and dominant RCA. I will talk to Dr. Jacobs and we will perform probably circumflex intervention tomorrow and after that we can discharge and bring her back to perform another vessel which would be RCA in the next couple of weeks. Vitals are stable. The right groin and radial sites are clear., S1-S2 heard normally. Lungs are clear. Abdomen and lower extremity exam is otherwise unchanged. MMODL / IJN: [id number] /
[2019-07-18] MEDS: LOSARTAN 25 MG TAB PO SCH (21:56)
[2019-07-19] MEDS: hydrALAZINE HCL 25 MG TAB PO SCH ×2 (08:34→19:55)
[2019-07-19] MEDS: ASPIRIN 81 MG PO SCH (08:34)
[2019-07-19] MEDS: TICAGRELOR 90 MG TAB PO SCH ×2 (08:35→19:55)
[2019-07-19] MEDS: METOPROLOL SUCCINATE (ER) 50 MG TAB.ER.24H PO SCH ×2 (08:35→19:55)
[2019-07-19] MEDS: ALPRAZolam 0.25 MG TAB PO PRN (08:35)
[2019-07-19] MEDS ORDERED: IV FLUID CONTINUATION 950 ML IV ONE (11:59)
[2019-07-19] MEDS ORDERED: MIDAZOLAM 2 MG/2 ML VIAL IV ONE ×2 (12:36→12:40)
[2019-07-19] MEDS ORDERED: LIDOCAINE 1% INJ 10MG/ML (20 ML MDV) SQ ONE (12:38)
[2019-07-19] MEDS ORDERED: HYDROmorphone 1 MG/ML 1 ML SYRINGE IVP ONE (12:41)
[2019-07-19] MEDS ORDERED: BIVALIRUDIN BOLUS 250 MG/50 ML IV ONE (12:43)
[2019-07-19] MEDS ORDERED: BIVALIRUDIN 250 MG in SODIUM CHLORIDE 0.9% 50 ML IV ONE (12:43)
[2019-07-19] MEDS: CRESTOR 20 MG PO SCH (12:43)
[2019-07-19] MEDS ORDERED: IOPAMIDOL-370 125ML BTL INJ ONE (13:23)
[2019-07-19] MEDS ORDERED: IOPAMIDOL-370 100ML BTL INJ ONE (13:56)
[2019-07-19] MEDS ORDERED: RX INFO: IV CONTRAST WAS GIVEN 1 EACH MISC MISCELLANE PRN (14:03)
[2019-07-19] MEDS: ONDANSETRON 4 MG/2 ML VIAL IVP PRN (14:27)
[2019-07-19] MEDS: SODIUM CHLORIDE 0.9% 1,000 ML IV SCH (14:31)
[2019-07-19] MEDS: LOSARTAN 25 MG TAB PO SCH (19:55)
[2019-07-20 07:04] LABS: Basophils # (A) 0.1 k/uL (0-0.2); Basophils % (A) 0 %; Eosinophils # (A) 0.1 k/uL (0-0.7); Eosinophils % (A) 1 %; HCT 36.9 % (34.0-46.0); HGB 12.3 gm/dL (11.4-16.0); Lymphocytes # (A) 2.1 k/uL (1.0-4.8); Lymphocytes % (A) 19 %; MCH 29.5 pg (25.0-35.0); MCHC 33.3 g/dL (31.0-37.0); MCV 88.8 fL (80.0-100.0); Monocytes # (A) 0.5 k/uL (0-1.0); Monocytes % (A) 5 %; Neutrophils # (A) 8.4 k/uL (1.3-7.7); Neutrophils % (A) 74 %; Platelet Count 290 k/uL (150-450); RBC 4.15 m/uL (3.80-5.40); WBC 11.3 k/uL (3.8-10.6)
--- NOTE | 2019-07-20 07:06 | PTCA ---
PERCUTANEOUSTRANS CORORONARY ANGIOGRAPHY DATE OF SERVICE: July 19, 2019. PERFORMING PHYSICIAN: Christiano Jacobs MD. PROCEDURE PERFORMED: 1. Successful stenting of the PDA branch of the right coronary artery using 2.5 x 12 mm Xience LISA with an excellent angiographic results. 2. Successful stenting of the ostial right coronary artery using bare metal stent with an excellent angiographic results. INDICATION: This is a very pleasant 73-year-old female patient with history of hypertension and dyslipidemia who presented to the hospital with chest discomfort and ruled in for acute non STEMI. She underwent a heart catheterization by Dr. Jimenez and was found to have severe triple-vessel CAD. She refused to undergo coronary artery bypass grafting. She underwent stenting of the LAD this past Thursday and was brought today to undergo a PCI of the RCA. APPROACH: Right common femoral artery. COMPLICATION: None. LEVEL OF SEDATION: Moderate with sedation length of about an hour. PROCEDURE DESCRIPTION: After obtaining informed consent, the patient was brought to the cardiac blood and plasma laboratory assistant. The right common femoral artery was cannulated using micropuncture technique and a micropuncture wire passed easily. Then I placed a 6-Pakistani sheath in the right common femoral artery. At that point, anticoagulation was initiated using Angiomax with bolus and drip. After that, I did engage the right coronary artery using JR4 guide with side hole. Subsequently I did wire the RCA using 2 wires. I did wire the PDA branch using a run- through wire as well as whisper wire. After that I did PTCA ballooning of the PDA branch using 2.0 x 12 mm balloon before I deployed 2.5 x 12 mm Xience LISA stent where stent was positioned under fluoroscopy guidance and deployed under its nominal pressure. The following angiogram showed good angiographic results and the procedure on the PDA was completed without any complication. For the ostial RCA, I did balloon angioplasty using 3.5 x 12 mm balloon. After that, I deployed 3.5 x 12 mm x 3.5 x 15 mm Xience LISA. The stent was positioned under fluoroscopy guidance workup. Unfortunately when the stent was deployed, it move forward and I missed the ostium. I attempted engaging the ostium and stenting the ostium using another 3.5 x 12, but the same thing happened. At that point, I did PTCA ballooning using 4 mm balloon before I was able to successfully deployed a 4.0 x 18 mm Xience LISA where the stent was again positioned under fluoroscopy guidance and deployed under its nominal pressure. The following angiogram showed good angiographic results and the procedure was completed without any complication. POSTPROCEDURE MANAGEMENT: 1. Dual anti-platelet therapy. 2. Risk factors modifications. 3. Follow up with the patient. KARO / ART: [id number] /
[2019-07-20 07:20] LABS: Calcium 9.2 mg/dL (8.4-10.2)
[2019-07-20] MEDS: SODIUM CHLORIDE 0.9% 1,000 ML IV SCH (08:19)
[2019-07-20] MEDS: TICAGRELOR 90 MG TAB PO SCH (08:25)
[2019-07-20] MEDS: METOPROLOL SUCCINATE (ER) 50 MG TAB.ER.24H PO SCH (08:25)
[2019-07-20] MEDS: ASPIRIN 81 MG PO SCH (08:25)
[2019-07-20] MEDS: hydrALAZINE HCL 25 MG TAB PO SCH (08:25)
[2019-07-20] MEDS: CRESTOR 20 MG PO SCH (08:25)
[2019-07-20 10:17] VITALS: RESP 18
[2019-07-20 12:25] VITALS: BP 144/68; PULSE 71; TEMP 98.1
--- NOTE | 2019-07-20 12:28 | P.VSCSTY ---
Greater Saphenous Vein Mapping This is bilateral lower extremity greater saphenous vein mapping. Date of service: 07/15/2019 Vein quality and ultrasound appearance: No endoluminal thrombus or wall changes are seen. Vein size groin right : 6.3 x 5.2 groin left: 4.9 x 4.6 High thigh right: 3.9 x 3.1 high thigh left: 5.6 x 4.7 Mid thigh right: 3.7 x 3.2 mid thigh left: 4.1 x 3.9 Above-knee right: 3.8 x 3.2 above- knee left: 2.7 x 2.1 Knee right: 2.5 x 2.6 knee left: 2.1 x 1.8 Below knee right: 1.4 x 1.0 below-knee left: 1.4 x 1.1 Mid calf right: 3.1 x 2.4 mid calf left: 1.7 x 1.9 Ankle right: 2.8 x 2.2 ankle left: 2.7 x 2.2 Impression: Usable bilateral greater saphenous vein in the thighs. Below the knee may be too small for use especially on the left..
[2019-07-20 14:01] VITALS: BMI 31.5
--- NOTE | 2019-07-20 15:13 | P.PN ---
Subjective Progress Note Date: 07/20/19 This is a 73-year-old female patient with past medical history significant for hypertension and hyperlipidemia admitted to the hospital with chest discomfort, ruled in for non-Q-wave myocardial infarction, patient underwent a cardiac catheterization by Dr. Jimenez, the coronary angiogram revealed severe triple-vessel coronary artery disease. Patient was seen by cardiothoracic surgery but unfortunately patient refused to go to surgery, she would rather have had a cutaneous intervention. Patient was taken to the cardiac catheterization lab where she underwent successful stenting of the PDA branch as well as successful stenting of the ostial right coronary artery. She was seen and examined this morning, denied any chest pain, no difficulty in breathing. Hemodynamically stable. Blood pressure 140/60 with a heart rate of 70, 97% on room air. Blood cell count 11.3, hemoglobin 12.3, platelet count 290. Sodium 141, potassium 4.0, BUN 16, creatinine Objective - Vital Signs Vital signs: Vital Signs Temp 98.1 F 07/20/19 11:10 Pulse 71 07/20/19 11:10 Resp 18 07/20/19 11:10 BP 144/68 07/20/19 11:10 Pulse Ox 97 07/20/19 11:10 Intake & Output 07/19/19 07/20/19 07/20/19 18:59 06:59 18:59 Intake Total 225 840 Output Total 1 Balance 225 -1 840 Weight 80.7 kg 80.7 kg Intake: IV 225 0.9% NS at 80ml/hr IV 80 Oral 0 840 Output: Urine 1 Other: Voiding Method Toilet Toilet # Voids 1 ABP, PAP, CO, CI - Last Documented Arterial Blood Pressure 158/68 - Exam Physical exam: Afebrile, heart rate 82, blood pressure 125/71, pulse ox 95% on room air Gen: This is a 73-year-old female. She is sitting in a recliner and appears to be comfortable and in no acute distress. HEENT: Head is atraumatic, normocephalic. Pupils equal, round. Sclerae is anicteric. NECK: Supple. No JVD. No lymphadenopathy. No thyromegaly. LUNGS: Clear to auscultation. No wheezes or rhonchi. No intercostal retractions. HEART: Regular rate and rhythm. No murmur. ABDOMEN: Soft. Bowel sounds are present. No masses. No tenderness. EXTREMITIES: Trace bilateral pedal edema, dorsalis pedis +2 bilaterally. No calf tenderness. NEUROLOGICAL: Patient is awake, alert and oriented x3. Cranial nerves 2 through 12 are grossly intact. - Labs CBC & Chem 7: 07/20/19 06:23 07/20/19 06:23 Labs: Abnormal Lab Results - Last 24 Hours (Table) 07/20/19 07/20/19 Range/Units 06:23 06:23 WBC 11.3 H (3.8-10.6) k/uL Neutrophils # 8.4 H (1.3-7.7) k/uL Chloride 109 H (98-107) mmol/L Assessment and Plan Plan: Assessment and plan #1 non-ST elevation UT status post angioplasty and stenting of LAD, PDA branch of the RCA, ostial RCA. 2 hyperlipidemia #3 hypertension Plan Patient may be able to be discharged home today. Follow-up appointment with Dr. Tripathi in the office post discharge. Discharge medications include aspirin 81 mg daily, hydralazine 25 mg twice a day, losartan 25 mg daily, metoprolol 50 mg twice a day, Brilinta 90 mg one tablet by mouth twice a day, Crestor 40 mg daily and sublingual nitroglycerin as needed for chest pain. DNP note has been reviewed, I agree with a documented findings and plan of care. Patient was seen and examined.
== END 2019-07-20 16:07 | disposition home or self-care (01) | DRG 246 ==
LOC: 3SCARD 16:24 → 2SICU 07-15 11:26 → 3SCARD 07-18 22:34
PROVIDERS: ADMIT Internal Medicine Clinical Cardiac Electrophysiology; ATTEND Internal Medicine Clinical Cardiac Electrophysiology
PROC: 4A023N7 Measurement of Cardiac Sampling and Pressure, Left Heart, Percutaneous Approach (ICD-10-PCS; 2019-07-15)
PROC: B2111ZZ Fluoroscopy of Multiple Coronary Arteries using Low Osmolar Contrast (ICD-10-PCS; 2019-07-15)
PROC: B44HZZZ Ultrasonography of Bilateral Lower Extremity Arteries (ICD-10-PCS; 2019-07-15)
PROC: 027036Z Dilation of Coronary Artery, One Artery with Three Drug-eluting Intraluminal Devices, Percutaneous Approach (ICD-10-PCS; principal; 2019-07-16 07:00)
PROC: 02703DZ Dilation of Coronary Artery, One Artery with Intraluminal Device, Percutaneous Approach (ICD-10-PCS; 2019-07-19)
PROC: 027036Z Dilation of Coronary Artery, One Artery with Three Drug-eluting Intraluminal Devices, Percutaneous Approach (ICD-10-PCS; 2019-07-19 07:30)
DX: I21.4 Non-ST elevation (NSTEMI) myocardial infarction (principal); I25.110 Atherosclerotic heart disease of native coronary artery with unstable angina pectoris; I44.7 Left bundle-branch block, unspecified; E78.00 Pure hypercholesterolemia, unspecified; I07.1 Rheumatic tricuspid insufficiency; I10 Essential (primary) hypertension; I44.0 Atrioventricular block, first degree; E78.5 Hyperlipidemia, unspecified; Z79.82 Long term (current) use of aspirin; Z79.899 Other long term (current) drug therapy; Z85.828 Personal history of other malignant neoplasm of skin; Z88.8 Allergy status to other drugs, medicaments and biological substances; Z82.49 Family history of ischemic heart disease and other diseases of the circulatory system; Z83.3 Family history of diabetes mellitus; Z82.3 Family history of stroke
CPT/HCPCS: 71045; 80048; 80053; 80061; 80074; 82533; 83036; 84443; 84484; 85025; 85610; 85730; 87070; 93306; 93458; 93880; 93970; 94150; C1874

== ENCOUNTER 2019-08-16 09:08 | Day surgery (SDC) | payer MEDICARE ==
[~2019-08-16 09:08] MED LIST: ALPRAZolam 0.25 MG TAB PO PRN; ALPRAZolam 0.5 MG TAB PO PRN; ASPIRIN 325 MG TAB PO ONE; ATORVASTATIN 80 MG TAB PO ONE; NITROGLYCERIN SL TABS 0.4 MG TAB SUBLINGUAL PRN; SODIUM CHLORIDE 0.9% 1,000 ML in EMPTY BAG 1 BAG IV ONE
[2019-08-16] MEDS ORDERED: ALPRAZolam 0.25 MG TAB PO ONE (09:30)
[2019-08-16] MEDS ORDERED: SODIUM CHLORIDE 0.9% 1,000 ML IV ONE (09:52)
[2019-08-16] MEDS ORDERED: MIDAZOLAM 2 MG/2 ML VIAL IV ONE (10:22)
[2019-08-16] MEDS ORDERED: LIDOCAINE 1% INJ 10MG/ML (20 ML MDV) SQ ONE (10:24)
[2019-08-16] MEDS ORDERED: BIVALIRUDIN BOLUS 250 MG/50 ML IV ONE (10:29)
[2019-08-16] MEDS ORDERED: BIVALIRUDIN 250 MG in SODIUM CHLORIDE 0.9% 50 ML IV ONE (10:30)
[2019-08-16] MEDS ORDERED: HYDROmorphone 1 MG/ML 1 ML SYRINGE IVP ONE (10:30)
[2019-08-16] MEDS ORDERED: ONDANSETRON 4 MG/2 ML VIAL IVP ONE (10:48)
[2019-08-16] MEDS ORDERED: NITROGLYCERIN 1000MCG/10ML SYRINGE INTRACORON ONE (10:56)
[2019-08-16] MEDS ORDERED: IOPAMIDOL-370 125ML BTL INJ ONE (11:02)
[2019-08-16] MEDS ORDERED: MAG HYDROX/AL HYDROX/SIMETH 30 ML CUP PO PRN (11:06)
[2019-08-16] MEDS ORDERED: RX INFO: IV CONTRAST WAS GIVEN 1 EACH MISC MISCELLANE PRN (11:06)
[2019-08-16] MEDS ORDERED: NITROGLYCERIN SL TABS 0.4 MG TAB SUBLINGUAL PRN ×2 (11:06)
[2019-08-16] MEDS ORDERED: ATROPINE SULFATE 0.1 MG/ML 10ML SYRINGE IV PRN (11:06)
[2019-08-16] MEDS ORDERED: ZOLPIDEM 5 MG TAB PO PRN (11:06)
[2019-08-16] MEDS ORDERED: SODIUM CHLORIDE 0.9% 1,000 ML IV SCH (11:15)
--- NOTE | 2019-08-16 11:46 | LTR ---
August 16, 2019 Re: Oriana Garrett Dear Dr. Lawton: Ms. Oriana Garrett underwent successful percutaneous coronary intervention of the left circumflex coronary artery today. I want to thank you for allowing me to participate in her care and please do not hesitate to call if you have any question or concern. Sincerely, MD KARO Dao / ART: [id number] /
--- NOTE | 2019-08-16 12:01 | CC ---
CARDIAC CATHETERIZATION REPORT CARDIAC CATHETERIZATION AND PERCUTANEOUS CORONARY INTERVENTION: APPROACH: Right common femoral artery. COMPLICATION: None. LEVEL OF SEDATION: Moderate with sedation length of 32 minutes. PROCEDURE DESCRIPTION: After obtaining an informed consent, the patient was brought to the cardiac laborer poultry hatchery. The right common femoral artery was cannulated using micropuncture technique, the micropuncture wire passed easily then I placed a 6-Pashto sheath in the right common femoral artery. Selective right coronary angiogram was performed using JR4 catheter. After that I did left heart catheterization. Please see a separate paragraph for that. I want to mention that selective left coronary angiogram was performed using an XB3 guide guide because we did intervene on the left circumflex at the same. SELECTIVE CORONARY ANGIOGRAM: 1. Left main is angiographically normal. It bifurcates into left circumflex and left anterior descending artery. 2. Left circumflex is a large caliber vessel. It is a nondominant vessel. The proximal circumflex appeared to be angiographically normal. The mid circumflex is tortuous with a lesion appeared to be in the range of 80%. This is by the bifurcation of OM1. The circumflex distally appeared to be tortuous, but appeared to be angiographically normal. 3. The LAD: The proximal LAD and mid LAD are stented and the stents are patent. The LAD distally appeared to be normal. The LAD gives rise into a large diagonal branch which has a lesion in the proximal portion seems to be in the range of 80% to 90%. 4. The right coronary artery is a large caliber vessel. It is a dominant vessel. The RCA appeared to be stented in the proximal portion. The mid RCA has a lesion appeared to be intermediate in the range of 60%. The RCA distally appeared to be normal and bifurcates into PDA and PLV branches, both appeared to be angiographically normal. HEMODYNAMICS: The LVEDP was 8 mmHg without significant gradient across aortic valve. PCI OF THE LEFT CIRCUMFLEX: Anticoagulation was initiated using Angiomax. Subsequently I did engage the left main using XB3 guide. I did wire it using a whisper wire. After that I did PTCA ballooning using 2.0 x 12 balloon before I deployed 2.0 x 12 mm Baird drug-eluting stent where the stent was positioned under fluoroscopy guidance and deployed under its nominal pressure. The following angiogram showed great angiographic results and the procedure was completed without any complication. CONCLUSION: 1. Patent stent in the proximal right coronary artery. There was intermediate lesion involving the mid right coronary artery. 2. Normal left main coronary artery. 3. Patent stent in the proximal and mid left anterior descending artery. There was severe lesion involving the first diagonal of the left anterior descending artery. 4. Severe disease involving the mid left circumflex. 5. Successful stenting of the mid left circumflex. POSTPROCEDURE MANAGEMENT: 1. Dual antiplatelet therapy. 2. Risk factors modifications. MMODL / IJN: [id number] /
[2019-08-16] MEDS ORDERED: PROCHLORPERAZINE 10 MG TAB PO STA (12:58)
[2019-08-16 14:41] VITALS: BMI 31.1
[2019-08-16] MEDS ORDERED: ONDANSETRON 4 MG/2 ML VIAL IVP PRN (16:29)
[2019-08-16] MEDS ORDERED: LOSARTAN 25 MG TAB PO SCH (21:00)
[2019-08-16] MEDS ORDERED: TICAGRELOR 90 MG TAB PO SCH ×2 (21:00)
[2019-08-16] MEDS: METOPROLOL SUCCINATE (ER) 50 MG TAB.ER.24H PO SCH (23:06)
[2019-08-17 03:52] VITALS: RESP 18; TEMP 98.2
[2019-08-17 05:59] LABS: Basophils # (A) 0.1 k/uL (0-0.2); Basophils % (A) 1 %; Eosinophils # (A) 0.1 k/uL (0-0.7); Eosinophils % (A) 1 %; HCT 39.7 % (34.0-46.0); Lymphocytes # (A) 1.9 k/uL (1.0-4.8); Lymphocytes % (A) 15 %; MCH 29.1 pg (25.0-35.0); MCHC 32.8 g/dL (31.0-37.0); MCV 88.8 fL (80.0-100.0); Mean Platelet Volume 7.4; Monocytes # (A) 0.6 k/uL (0-1.0); Monocytes % (A) 5 %; Neutrophils # (A) 9.9 k/uL (1.3-7.7); Neutrophils % (A) 78 %; Platelet Count 311 k/uL (150-450); RBC 4.47 m/uL (3.80-5.40); RDW 13.5 % (11.5-15.5); WBC 12.7 k/uL (3.8-10.6)
[2019-08-17 06:09] LABS: Calcium 9.4 mg/dL (8.4-10.2); Potassium 3.8 mmol/L (3.5-5.1)
[2019-08-17] MEDS: METOPROLOL SUCCINATE (ER) 50 MG TAB.ER.24H PO SCH (07:55)
[2019-08-17] MEDS ORDERED: ASPIRIN 81 MG PO SCH (09:00)
[2019-08-17] MEDS ORDERED: CRESTOR 20 MG PO SCH (09:00)
[2019-08-17] MEDS ORDERED: amLODIPine 10 MG TAB PO SCH (09:00)
[2019-08-17] MEDS ORDERED: CLOPIDOGREL 75 MG TAB PO SCH (09:00)
[2019-08-17 12:31] VITALS: BP 135/66; PULSE 78
--- NOTE | 2019-08-17 23:26 | DS ---
DISCHARGE SUMMARY ADMISSION DATE: August 16, 2019. DISCHARGE DATE: August 17, 2019. BRIEF HISTORY: This is a very pleasant 73-year-old female patient who underwent yesterday successful stenting of the left circumflex coronary artery with an excellent angiographic results and without any complication. She was seen this morning. The right groin is soft and nontender and without any bruising. The patient is going to be discharged home on dual anti-platelet therapy and I will follow up with the patient in the office next week. MMMARCELLUS / ART: [id number] /
== END 2019-08-17 11:33 | disposition home or self-care (01) ==
LOC: CATHCVL 09:08 → 3SCARD 11:19 → CATHCVL 08-17 11:33
PROVIDERS: ATTEND Internal Medicine Interventional Cardiology
DX: I25.110 Atherosclerotic heart disease of native coronary artery with unstable angina pectoris (principal); I77.1 Stricture of artery; I11.9 Hypertensive heart disease without heart failure; E78.00 Pure hypercholesterolemia, unspecified; E78.5 Hyperlipidemia, unspecified; Z79.02 Long term (current) use of antithrombotics/antiplatelets; Z79.82 Long term (current) use of aspirin; Z79.899 Other long term (current) drug therapy; Z88.8 Allergy status to other drugs, medicaments and biological substances
CPT/HCPCS: 93458; 80048; 85025; C9600; C1769 ×3; C1725; C1887 ×2; C1894; C1874; S0183; J2250; J2405; J2001; J1170; J0583; Q9967

== ENCOUNTER 2023-04-21 16:16 | Inpatient (IN) | payer MEDICARE ==
--- NOTE | 2023-04-21 16:46 | ED ---
General Adult HPI - General Source: patient, RN notes reviewed <Darling Keith - Last Filed: 04/21/23 16:44> - General Source: patient, RN notes reviewed Mode of arrival: ambulatory Limitations: no limitations <Jason Antonio - Last Filed: 04/21/23 21:34> - General Stated complaint: fatigue, fever, chills, SOB Time Seen by Provider: 04/21/23 16:44 - History of Present Illness Initial comments: 77-year-old female presents emergency department chief complaint of dyspnea. Patient states that she past week she has been having fevers on and off. Today she developed shortness of breath. She admits to minimal cough. She states that around 1-1/2 weeks ago she was sick and was vomiting frequently, this has since resolved but following this she started running fevers. Past medical history includes hypertension, cardiac stent. (Darling Keith) 77-year-old female presents emergency Department chief complaint shortness breath, fever, not feeling well. Patient states she's been sick for 2 weeks states this started initially after receiving her flu vaccine. Patient complains of ongoing fevers minimal cough she states she just feels very weak she did have some initial nausea and vomiting. Patient had no sick contacts at home. She does have prior cardiac disease denies any lung disease denies any dysuria hematuria (Jason Antonio) - Related Data Home Medications Medication Instructions Recorded Confirmed Metoprolol Succinate (ER) [Toprol 50 mg PO BID 07/14/19 08/16/19 XL] Rosuvastatin Calcium 20 mg PO DAILY 07/14/19 08/16/19 amLODIPine [Norvasc] 10 mg PO DAILY 07/14/19 08/16/19 Losartan Potassium [Cozaar] 25 mg PO HS 08/15/19 08/16/19 Previous Rx's Medication Instructions Recorded Aspirin 81 mg PO DAILY #30 chewable 07/20/19 Nitroglycerin Sl Tabs [Nitrostat] 0.4 mg SUBLINGUAL Q5M PRN #25 tab 07/20/19 Ticagrelor [Brilinta] 90 mg PO BID #60 tab 07/20/19 Allergies Allergy/AdvReac Type Severity Reaction Status Date / Time No Known Allergies Allergy Verified 04/21/23 16:46 Review of Systems ROS Other: All systems not noted in ROS Statement are negative. <AntonioadelsoDarling french - Last Filed: 04/21/23 16:44> ROS Other: All systems not noted in ROS Statement are negative. <Jason Antonio - Last Filed: 04/21/23 21:34> ROS Statement: Those systems with pertinent positive or pertinent negative responses have been documented in the HPI. Past Medical History Past Medical History: Chest Pain / Angina, Hyperlipidemia, Hypertension Additional Past Medical History / Comment(s): positive stress test on 07-11 History of Any Multi-Drug Resistant Organisms: None Reported Past Surgical History: Heart Catheterization With Stent Additional Past Surgical History / Comment(s): states 7 stents total Past Anesthesia/Blood Transfusion Reactions: No Reported Reaction Date of Last Stent Placement:: July 2019 Past Psychological History: No Psychological Hx Reported Past Alcohol Use History: None Reported Past Drug Use History: None Reported - Past Family History Father Family Medical History: CVA/TIA, Diabetes Mellitus Additional Family Medical History / Comment(s): at 42 from a stroke Mother Family Medical History: No Reported History Additional Family Medical History / Comment(s): at 92 years old from old age Sister(s) Family Medical History: Coronary Artery Disease (CAD) Additional Family Medical History / Comment(s): overweight, enlarged heart, May 2018 <AntonioadelsogillianDarling - Last Filed: 04/21/23 16:44> General Exam <AntonioadelsoDarling french - Last Filed: 04/21/23 16:44> General appearance: alert, in no apparent distress Head exam: Present: atraumatic, normocephalic, normal inspection Eye exam: Present: normal appearance, PERRL, EOMI. Absent: scleral icterus, conjunctival injection, periorbital swelling ENT exam: Present: normal exam, normal oropharynx, mucous membranes moist, TM's normal bilaterally Neck exam: Present: normal inspection, full ROM. Absent: tenderness, meningismus, lymphadenopathy Respiratory exam: Present: rhonchi. Absent: normal lung sounds bilaterally, respiratory distress, wheezes, rales, stridor Cardiovascular Exam: Present: normal rhythm, tachycardia, normal heart sounds. Absent: systolic murmur, diastolic murmur, rubs, gallop, clicks GI/Abdominal exam: Present: soft, normal bowel sounds. Absent: distended, tend erness, guarding, rebound, rigid Neurological exam: Present: alert, oriented X3, CN II-XII intact, reflexes normal. Absent: motor sensory deficit Skin exam: Present: warm, dry, intact, normal color. Absent: rash <Jason Antonio - Last Filed: 04/21/23 21:34> - General Exam Comments Initial Comments: Visual Physical Exam Vital signs reviewed General: Well-appearing, nontoxic, no acute distress. Head: Normocephalic, atraumatic Eyes: PERRLA, EOMI ENT: Airway patent Chest: Nonlabored breathing Skin: No visual rash, normal skin tone Neuro: Alert and oriented 3 Musculoskeletal: No gross abnormalities (Darling Keith) Course Vital Signs 04/21/23 04/21/23 04/21/23 16:20 16:41 17:30 Temperature 100.1 F H 101.7 F H Pulse Rate 107 H 110 H Respiratory 28 H 20 26 H Rate Blood Pressure 138/72 144/85 O2 Sat by Pulse 93 L 88 L Oximetry 04/21/23 04/21/23 04/21/23 18:00 19:50 19:58 Temperature Pulse Rate 104 H 89 86 Respiratory 20 Rate Blood Pressure 144/85 O2 Sat by Pulse 95 Oximetry 04/21/23 20:22 Temperature 98.1 F Pulse Rate Respiratory Rate Blood Pressure O2 Sat by Pulse Oximetry EKG Findings - EKG Comments: EKG Findings:: EKG performed at 17:13 sinus tachycardia rate of 108 SD 176 QRS 101 QT/QTC 345/408 - EKG Results: EKG: interpreted by ERMD <Jason Antonio - Last Filed: 04/21/23 21:34> Medical Decision Making <Darling Keith - Last Filed: 04/21/23 16:44> - Lab Data Result diagrams: 04/21/23 17:29 04/21/23 17:29 <Jason Antonio - Last Filed: 04/21/23 21:34> - Medical Decision Making I performed a quick note portion of this chart. Electronically signed by Darling Keith PA-C (Darling Keith) Was pt. sent in by a medical professional or institution ([facility], FLOAT OPERATOR, urgent care, hospital, or penitentiary...) When possible be specific @ -No Did you speak to anyone other than the patient for history (EMS, parent, family, police, friend...)? What history was obtained from this source @ -No Did you review nursing and triage notes (agree or disagree)? Why? @ -I reviewed and agree with nursing and triage notes Were old charts reviewed (outside hosp., previous admission, EMS record, old EKG, old radiological studies, urgent care reports/EKG's, penitentiary records)? Report findings @ -No old charts were reviewed Differential Diagnosis (chest pain, altered mental status, abdominal pain women, abdominal pain men, vaginal bleeding, weakness, fever, dyspnea, syncope, headache, dizziness, GI bleed, back pain, seizure, CVA, palpatations, mental health, musculoskeletal)? @ -Differential Dyspnea: Coronary syndrome, arrhythmia, tamponade, asthma, COPD, pulmonary embolism, pneumonia, pneumothorax, pulmonary effusion, anaphylaxis, diabetic ketoacidosis, flailed chest, pulmonary contusion, diaphragmatic rupture, anemia, n euromuscular, this is not meant to be an all-inclusive list. Differential Fever: Pneumonia, viral URI, endocarditis, myocarditis, pericarditis, otitis, sinusitis, peritonsillar Abscess, retropharyngeal Abscess, epiglottitis, peritonitis, appendicitis, Elizabeth cystitis, diverticulitis, hepatitis, colitis, UTI, PID, TOA, pyelonephritis, prostatitis, epididymitis, meningitis, encephalitis, pulmonary embolism, CVA, thyroid storm, pancreatitis, adrenal crisis, cavernous sinus thrombosis, this is not meant to be an all-inclusive list. le EKG interpreted by me (3pts min.). @ -None X-rays interpreted by me (1pt min.). @ -Chest x-ray shows evidence of pneumonia CT interpreted by me (1pt min.). @ -None done U/S interpreted by me (1pt. min.). @ -None done What testing was considered but not performed or refused? (CT, X-rays, U/S, labs)? Why? @ -None What meds were considered but not given or refused? Why? @ -None Did you discuss the management of the patient with other professionals (professionals i.e. , PA, FLOAT OPERATOR, lab, RT, psych nurse, social services manager, head of quality, teacher, surveillance dual rate officer, case mgr)? Give summary @ -Marissa Arguello for admission Was smoking cessation discussed for >3mins.? @ -No Was critical care preformed (if so, how long)? @ -No Were there social determinants of health that impacted care today? How? (Homelessness, low income, unemployed, alcoholism, drug addiction, transportatio n, low edu. Level, literacy, decrease access to med. care, nursing home, rehab)? @ -No Was there de-escalation of care discussed even if they declined (Discuss DNR or withdrawal of care, Hospice)? DNR status @ -No What co-morbidities impacted this encounter? (DM, HTN, Smoking, COPD, CAD, Cancer, CVA, ARF, Chemo, Hep., AIDS, mental health diagnosis, sleep apnea, morbid obesity)? @ -None Was patient admitted / discharged? Hospital course, mention meds given and route, prescriptions, significant lab abnormalities, going to OR and other pertinent info. @ -Admitted patient has severe leukocytosis, chest x-ray show no evidence of pneumonia, patient is febrile does have some hypoxia. Patient was given IV fluids, antipyretics, antibiotics. Patiently admitted for pneumonia treatment. Undiagnosed new problem with uncertain prognosis? @ -No Drug Therapy requiring intensive monitoring for toxicity (Heparin, Nitro, Insulin, Cardizem)? @ -No Were any procedures done? @ -No Diagnosis/symptom? @ -Pneumonia, hypoxia, weakness, fever Acute, or Chronic, or Acute on Chronic? @ -Acute Uncomplicated (without systemic symptoms) or Complicated (systemic symptoms)? @ -Complicated Side effects of treatment? @ -No Exacerbation, Progression, or Severe Exacerbation? @ -No Poses a threat to life or bodily function? How? (Chest pain, [place], [place], pneumonia, PE, COPD, DKA, ARF, appy, cholecystitis, CVA, Diverticulitis, Homicidal, Suicidal, threat to staff... and all critical care pts) @ -Yes (Jason Antonio) - Lab Data Lab Results 04/21/23 04/21/23 04/21/23 Range/Units 17:29 17:29 17:29 WBC 21.8 H (3.8-10.6) k/uL RBC 4.88 (3.80-5.40) m/uL Hgb 14.2 (11.4-16.0) gm/dL Hct 43.6 (34.0-46.0) % MCV 89.5 (80.0-100.0) fL MCH 29.2 (25.0-35.0) pg MCHC 32.6 (31.0-37.0) g/dL RDW 14.0 (11.5-15.5) % Plt Count 490 H (150-450) k/uL MPV 8.4 Neutrophils % 89 % Lymphocytes % 7 % Monocytes % 2 % Eosinophils % 0 % Basophils % 0 % Neutrophils # 19.5 H (1.3-7.7) k/uL Lymphocytes # 1.5 (1.0-4.8) k/uL Monocytes # 0.5 (0-1.0) k/uL Eosinophils # 0.0 (0-0.7) k/uL Basophils # 0.0 (0-0.2) k/uL PT 10.3 (9.0-12.0) sec INR 1.0 (<1.2) APTT 25.5 (22.0-30.0) sec Sodium 135 L (137-145) mmol/L Potassium 5.1 (3.5-5.1) mmol/L Chloride 96 L (98-107) mmol/L Carbon Dioxide 26 (22-30) mmol/L Anion Gap 13 mmol/L BUN 19 H (7-17) mg/dL Creatinine 0.99 (0.52-1.04) mg/dL Est GFR (CKD-EPI)AfAm 65 (>60 ml/min/1.73 sqM) Est GFR (CKD-EPI)NonAf 56 (>60 ml/min/1.73 sqM) Glucose 157 H (74-99) mg/dL Plasma Lactic Acid Pipo (0.7-2.0) mmol/L Calcium 9.5 (8.4-10.2) mg/dL Total Bilirubin 0.9 (0.2-1.3) mg/dL AST 67 H (14-36) U/L ALT 69 H (4-34) U/L Alkaline Phosphatase 230 H (38-126) U/L Total Protein 7.8 (6.3-8.2) g/dL Albumin 3.8 (3.5-5.0) g/dL Urine Color Urine Appearance (Clear) Urine pH (5.0-8.0) Ur Specific [place] (1.001-1.035) Urine Protein (Negative) Urine Glucose (UA) (Negative) Urine Ketones (Negative) Urine Blood (Negative) Urine Nitrite (Negative) Urine Bilirubin (Negative) Urine Urobilinogen (<2.0) mg/dL Ur Leukocyte Esterase (Negative) Urine RBC (0-5) /hpf Urine WBC (0-5) /hpf Ur Squamous Epith Cells (0-4) /hpf Urine Bacteria (None) /hpf Urine Mucus (None) /hpf Influenza Type A (PCR) (Not Detectd) Influenza Type B (PCR) (Not Detectd) RSV (PCR) (Not Detectd) SARS-CoV-2 (PCR) (Not Detectd) 04/21/23 04/21/23 04/21/23 Range/Units 17:29 17:29 19:45 WBC (3.8-10.6) k/uL RBC (3.80-5.40) m/uL Hgb (11.4-16.0) gm/dL Hct (34.0-46.0) % MCV (80.0-100.0) fL MCH (25.0-35.0) pg MCHC (31.0-37.0) g/dL RDW (11.5-15.5) % Plt Count (150-450) k/uL MPV Neutrophils % % Lymphocytes % % Monocytes % % Eosinophils % % Basophils % % Neutrophils # (1.3-7.7) k/uL Lymphocytes # (1.0-4.8) k/uL Monocytes # (0-1.0) k/uL Eosinophils # (0-0.7) k/uL Basophils # (0-0.2) k/uL PT (9.0-12.0) sec INR (<1.2) APTT (22.0-30.0) sec Sodium (137-145) mmol/L Potassium (3.5-5.1) mmol/L Chloride (98-107) mmol/L Carbon Dioxide (22-30) mmol/L Anion Gap mmol/L BUN (7-17) mg/dL Creatinine (0.52-1.04) mg/dL Est GFR (CKD-EPI)AfAm (>60 ml/min/1.73 sqM) Est GFR (CKD-EPI)NonAf (>60 ml/min/1.73 sqM) Glucose (74-99) mg/dL Plasma Lactic Acid Pipo 1.4 (0.7-2.0) mmol/L Calcium (8.4-10.2) mg/dL Total Bilirubin (0.2-1.3) mg/dL AST (14-36) U/L ALT (4-34) U/L Alkaline Phosphatase (38-126) U/L Total Protein (6.3-8.2) g/dL Albumin (3.5-5.0) g/dL Urine Color Yellow Urine Appearance Cloudy H (Clear) Urine pH 5.5 (5.0-8.0) Ur Specific Dell 1.020 (1.001-1.035) Urine Protein 1+ H (Negative) Urine Glucose (UA) 4+ H (Negative) Urine Ketones 1+ H (Negative) Urine Blood Small H (Negative) Urine Nitrite Negative (Negative) Urine Bilirubin Negative (Negative) Urine Urobilinogen <2.0 (<2.0) mg/dL Ur Leukocyte Esterase Negative (Negative) Urine RBC 3 (0-5) /hpf Urine WBC 1 (0-5) /hpf Ur Squamous Epith Cells 5 H (0-4) /hpf Urine Bacteria Occasional H (None) /hpf Urine Mucus Rare H (None) /hpf Influenza Type A (PCR) Not Detected (Not Detectd) Influenza Type B (PCR) Not Detected (Not Detectd) RSV (PCR) Not Detected (Not Detectd) SARS-CoV-2 (PCR) Not Detected (Not Detectd) Disposition <Darling Keith - Last Filed: 04/21/23 16:44> Time of Disposition: 20:41 <Jason Antonio - Last Filed: 04/21/23 21:34> Clinical Impression: Pneumonia, Fever, Hypoxia, Weakness Disposition: ADMITTED IP TO THIS HOSP Condition: Fair Referrals: Anabelle Lawton MD [Primary Care Provider] - 1-2 days
[2023-04-21] MEDS ORDERED: ACETAMINOPHEN TAB 500 MG TAB PO STA (17:48)
[2023-04-21 17:51] LABS: Basophils % (A) 0 %; Eosinophils % (A) 0 %; HCT 43.6 % (34.0-46.0); HGB 14.2 gm/dL (11.4-16.0); Lymphocytes # (A) 1.5 k/uL (1.0-4.8); Lymphocytes % (A) 7 %; MCH 29.2 pg (25.0-35.0); MCHC 32.6 g/dL (31.0-37.0); MCV 89.5 fL (80.0-100.0); Mean Platelet Volume 8.4; Monocytes # (A) 0.5 k/uL (0-1.0); Monocytes % (A) 2 %; Neutrophils # (A) 19.5 k/uL (1.3-7.7); Neutrophils % (A) 89 %; Platelet Count 490 k/uL (150-450); RBC 4.88 m/uL (3.80-5.40); WBC 21.8 k/uL (3.8-10.6)
[2023-04-21 18:04] LABS: Partial Thromboplastin Time 25.5 sec (22.0-30.0); Prothrombin Time 10.3 sec (9.0-12.0)
[2023-04-21 18:05] LABS: ALT 69 U/L (4-34); AST 67 U/L (14-36); African American GFR (CKD) 65 (>60 ml/min/1.73 sqM); Albumin 3.8 g/dL (3.5-5.0); Alkaline Phosphatase 230 U/L (38-126); Anion Gap 13 mmol/L; Blood Urea Nitrogen 19 mg/dL (7-17); Calcium 9.5 mg/dL (8.4-10.2); Carbon Dioxide 26 mmol/L (22-30); Chloride 96 mmol/L (98-107); Glucose 157 mg/dL (74-99); Non-African American GFR(CKD) 56 (>60 ml/min/1.73 sqM); Sodium 135 mmol/L (137-145); Total Bilirubin 0.9 mg/dL (0.2-1.3); Total Protein 7.8 g/dL (6.3-8.2)
--- NOTE | 2023-04-21 18:14 | XR ---
EXAMINATION TYPE: XR chest 2V DATE OF EXAM: 04/21/2023 COMPARISON: 07/15/2019 INDICATION: Difficulty breathing TECHNIQUE: Frontal and lateral views of the chest are obtained. FINDINGS: The heart size is normal. The pulmonary vasculature is normal. On the lateral projection there are some streaky opacities in the posterior lung bases, likely on the basis of atelectasis or pneumonia. Correlate with clinical symptoms. IMPRESSION: 1. Posterior lung base streaky opacities. Correlate for atelectasis or pneumonia
[2023-04-21] MEDS ORDERED: SODIUM CHLORIDE 0.9% 1,000 ML IV ONE (18:21)
[2023-04-21] MEDS ORDERED: IPRATROPIUM-ALBUTEROL 3 ML NEB INHALATION STA (18:22)
[2023-04-21 18:26] LABS: Potassium 5.1 mmol/L (3.5-5.1)
[2023-04-21] MEDS: IBUPROFEN 600 MG TAB PO STA (20:22)
[2023-04-21 20:37] LABS: Appearance,Urine Cloudy (Clear); Bacteria,Urine Occasional /hpf; Bilirubin,Urine Negative (Negative); Blood,Urine Small (Negative); Color,Urine Yellow; Glucose,Urine (UA) 4+ (Negative); Ketones,Urine 1+ (Negative); Leukocyte Esterase,Urine Negative (Negative); Mucus,Urine Rare /hpf; Nitrite,Urine Negative (Negative); PH, Urine 5.5 (5.0-8.0); Protein,Urine 1+ (Negative); RBC,Urine 3 /hpf (0-5); Squamous Epithelial Cell,Urine 5 /hpf (0-4); Urobilinogen,Urine <2.0 mg/dL (<2.0); WBC,Urine 1 /hpf (0-5)
[2023-04-21] MEDS ORDERED: AZITHROMYCIN 500 MG in SODIUM CHLORIDE 0.9% 250 ML IVPB STA (20:47)
[2023-04-21] MEDS ORDERED: IPRATROPIUM-ALBUTEROL 3 ML NEB INHALATION PRN (21:34)
[2023-04-21] MEDS ORDERED: PNEUMONIA PROTOCOL UTILIZED 1 EACH MISC PO PRN (21:34)
[2023-04-22] MEDS: IBUPROFEN 600 MG TAB PO STA (00:58)
--- NOTE | 2023-04-22 07:53 | P.HPIM ---
History of Present Illness This is a pleasant 77 years old female with past medical history of Hyperlipidemia, Hypertension, Heart Catheterization With Stent x7 Patient presents because of worsening dyspnea and generalized weakness. Her weakness and all started after she got a shot last Thursday, she got sick and she wants to see her PCP Dr. Lawton will advise her to go to the emergency room but patient decided to wait because her was sick, she was getting worse so she eventually came to the emergency room. She has cough with little chest pain with deep inspiration. She hasn't been eating well for the last 2-3 days. She denies smoking alcohol or illicit drugs. She denies GI, urinary, or neurological symptoms On admission she had a fever of 101.7. Patient is saturating 88% to 93% on room air Labs showing leukocytosis of 21.8. Rest of CBC, INR, BMP is unremarkable Enzymes mildly elevated with AST 67 and ALT 69. Viruses and detected, influenza, RSV at [facility] EKG showed sinus tachycardia and [address]-T changes and LVH. Chest x-ray: Posterior lung bases streaky opacities. Correlate for atelectasis or pneumonia Patient was started with sutures and Zithromax and admitted to the hospital Review of Systems Review of systems CONSTITUTIONAL: No fever, no malaise, no fatigue. HEENT: No recent visual problems or hearing problems. Denied any sore throat. CARDIOVASCULAR: No orthopnea, PND, no palpitations, no syncope. PULMONARY: No chest wall tenderness, no hemoptysis. GASTROINTESTINAL: No diarrhea, no nausea, no vomiting, no abdominal pain. Normoactive bowel sounds. NEUROLOGICAL: No headaches, no weakness, no numbness. HEMATOLOGICAL: Denies any bleeding or petechiae. GENITOURINARY: Denies any burning micturition, frequency, or urgency. MUSCULOSKELETAL/RHEUMATOLOGICAL: Denies any joint pain, swelling, or any muscle pain. ENDOCRINE: Denies any polyuria or polydipsia. Past Medical History Past Medical History: Chest Pain / Angina, Hyperlipidemia, Hypertension Additional Past Medical History / Comment(s): positive stress test on 07-11 History of Any Multi-Drug Resistant Organisms: None Reported Past Surgical History: Heart Catheterization With Stent Additional Past Surgical History / Comment(s): states 7 stents total Past Anesthesia/Blood Transfusion Reactions: No Reported Reaction Date of Last Stent Placement:: July 2019 Past Psychological History: No Psychological Hx Reported Past Alcohol Use History: None Reported Past Drug Use History: None Reported - Past Family History Father Family Medical History: CVA/TIA, Diabetes Mellitus Additional Family Medical History / Comment(s): at 42 from a stroke Mother Family Medical History: No Reported History Additional Family Medical History / Comment(s): at 92 years old from old age Sister(s) Family Medical History: Coronary Artery Disease (CAD) Additional Family Medical History / Comment(s): overweight, enlarged heart, May 2018 Medications and Allergies Home Medications Medication Instructions Recorded Confirmed Type Metoprolol Succinate (ER) [Toprol 50 mg PO BID 07/14/19 04/21/23 History XL] Aspirin EC [Ecotrin Low Dose] 81 mg PO DAILY 04/21/23 04/21/23 History Dapagliflozin Propanediol [Farxiga] 5 mg PO DAILY 04/21/23 04/21/23 History Losartan [Cozaar] 50 mg PO BID 04/21/23 04/21/23 History Rosuvastatin Calcium 5 mg PO HS 04/21/23 04/21/23 History Allergies Allergy/AdvReac Type Severity Reaction Status Date / Time No Known Allergies Allergy Verified 04/21/23 21:46 Physical Exam Vitals: Vital Signs Temp Pulse Resp BP Pulse Ox 04/22/23 07:00 98.2 F 80 16 130/69 97 04/22/23 01:37 99.2 F 94 16 108/61 97 04/21/23 22:00 84 18 133/81 04/21/23 20:22 98.1 F 04/21/23 19:58 86 04/21/23 19:50 89 04/21/23 18:00 104 H 20 144/85 95 04/21/23 17:30 101.7 F H 110 H 26 H 144/85 88 L 04/21/23 16:41 100.1 F H 107 H 20 138/72 93 L 04/21/23 16:20 28 H Intake and Output 04/21/23 04/22/23 04/22/23 22:59 06:59 14:59 Other: Weight 81.647 kg -GENERAL: The patient is alert and oriented x3, not in any acute distress. Obese HEENT: Pupils are round and equally reacting to light. EOMI. No scleral icterus. No conjunctival pallor. Normocephalic, atraumatic. No pharyngeal erythema. No thyromegaly. CARDIOVASCULAR: S1 and S2 present. No murmurs, rubs, or gallops. -PULMONARY: Chest is clear to auscultation, no wheezing , no crackles. Tachypneic ABDOMEN: Soft, nontender, nondistended, normoactive bowel sounds. No palpable organomegaly. MUSCULOSKELETAL: No joint swelling or deformity. EXTREMITIES: No cyanosis, clubbing, or pedal edema. NEUROLOGICAL: Gross neurological examination did not reveal any focal deficits. SKIN: No rashes. no petechiae. Results CBC & Chem 7: 04/21/23 17:29 04/21/23 17:29 Labs: Abnormal Lab Results - Last 24 Hours (Table) 04/21/23 04/21/23 04/21/23 Range/Units 17:29 17:29 19:45 WBC 21.8 H (3.8-10.6) k/uL Plt Count 490 H (150-450) k/uL Neutrophils # 19.5 H (1.3-7.7) k/uL Sodium 135 L (137-145) mmol/L Chloride 96 L (98-107) mmol/L BUN 19 H (7-17) mg/dL Glucose 157 H (74-99) mg/dL AST 67 H (14-36) U/L ALT 69 H (4-34) U/L Alkaline Phosphatase 230 H (38-126) U/L Urine Appearance Cloudy H (Clear) Urine Protein 1+ H (Negative) Urine Glucose (UA) 4+ H (Negative) Urine Ketones 1+ H (Negative) Urine Blood Small H (Negative) Ur Squamous Epith Cells 5 H (0-4) /hpf Urine Bacteria Occasional H (None) /hpf Urine Mucus Rare H (None) /hpf Assessment and Plan Assessment: Sepsis, fever and a leukocytosis mild hypoxic respiratory failure Mild transaminitis Hypertension Hyperlipidemia History of coronary artery disease status post stent 7 Obesity with BMI of 31.9 Plan: Continue with antibiotic Continue with gentle hydration Continue with oxygen Continue with pulmonary consult Follow-up culture results Labs and medication were reviewed.. Continue same treatment. Continue with symptomatic treatment. Resume home medication. Monitor labs and vitals. DVT and GI prophylaxis. Further recommendations as per clinical course of the patient DVT prophylaxis: Subcutaneous heparin GI Prophylaxis: Pepcid PT/OT: Pending Prognosis is guarded
--- NOTE | 2023-04-22 08:35 | XR ---
EXAMINATION TYPE: XR chest 2V DATE OF EXAM: 04/22/2023 COMPARISON: 04/21/2023 TECHNIQUE: PA and lateral views submitted. HISTORY: Fever FINDINGS: A bilateral lower lobe infiltrate. Limited inspiration. Heart size upper limits of normal. No overt f ailure pneumothorax. Biapical pleural thickening. Arthropathy of the shoulders. Correlate for COPD. H ypertrophic degenerative changes of the spine. IMPRESSION: 1. Bilateral lower lobe infiltrate..
[2023-04-22] MEDS ORDERED: FAMOTIDINE 20 MG/2 ML VIAL IV SCH (09:00)
[2023-04-22] MEDS: ASPIRIN 81 MG PO SCH (09:04)
[2023-04-22] MEDS: HEPARIN SODIUM,PORCINE 5,000 UNIT/ML 1 ML VIAL SQ SCH ×2 (09:04→20:54)
[2023-04-22] MEDS: METOPROLOL SUCCINATE (ER) 50 MG TAB.ER.24H PO SCH ×2 (09:04→20:53)
[2023-04-22] MEDS: AZITHROMYCIN 500 MG TAB PO SCH (09:04)
[2023-04-22] MEDS: LOSARTAN 50 MG TAB PO SCH ×2 (09:04→20:53)
[2023-04-22] MEDS: DAPAGLIFLOZIN PROPANEDIOL 5 MG TABLET PO SCH (09:08)
[2023-04-22] MEDS: DEXTROSE 5%-0.9% NACL 1,000 ML IV SCH ×2 (10:10→20:52)
--- NOTE | 2023-04-22 13:19 | P.CNPUL ---
History of Present Illness Consult date: 04/22/23 Requesting physician: Bridger Ma Reason for consult: dyspnea, cough, abnormal CXR/CT Chief complaint: Shortness of breath, fever, chills History of present illness: This is a very pleasant 77-year-old female patient with a known history of hypertension, hyperlipidemia, diabetes mellitus, and coronary artery disease with 7 stents placed, lifelong nonsmoker. She presented here to the emergency room yesterday with a 2 week history of initially vomiting for a week then fever chills weakness shortness of breath and pleuritic-type chest pain. Chest x-ray revealed some posterior lung base streaky opacities. White count 21.8. Hemoglobin 14.2. Platelets 490. Sodium 135. Potassium 5.1. Bicarb 26. BUN 19. Creatinine 0.99. Glucose 157. AST 67. ALT is 69. D-dimer 2.15. Urinalysis cloudy with 4+ glucose 1+ ketones occasional bacteria. Influenza screen negative. RSV screen negative. COVID-19 screen negative. She did have a T-max of 101.7. She is seen today in consultation in the emergency department. She is currently resting comfortably on a stretcher. Awake and alert in no acute distress. She is maintaining O2 saturations in the mid 90s on 2 L nasal cannula. She's currently afebrile. Hemodynamically stable. She does have a loose nonproductive cough. Review of Systems REVIEW OF SYSTEMS: CONSTITUTIONAL: Positive for generalized weakness, fever. Denies any recent significant weight loss or weight gain. EYES: Denies change in vision. EARS, NOSE, MOUTH, THROAT: Denies headaches, denies sore throat. CARDIOVASCULAR: Positive for pleuritic chest pain, no palpitations or syncopal episodes. RESPIRATORY: Positive for shortness of breath, cough, congestion hemoptysis. GASTROINTESTINAL: Denies change in appetite, denies abdominal pain GENITOURINARY: Denies hematuria, denies infections. MUSKULOSKELETAL: Denies pain, denies swelling. INTEGUMENTARY: Denies rash, denies eczema. NEUROLOGICAL: Denies recent memory loss, no recent seizure activity. PSYCHIATRIC: Denies anxiety, denies depression. HEMATOLOGIC/LYMPHATIC: Denies anemia, denies enlarged lymph nodes. Past Medical History Past Medical History: Chest Pain / Angina, Diabetes Mellitus, Hyperlipidemia, Hypertension Additional Past Medical History / Comment(s): positive stress test on 07-11, diet controlled DM History of Any Multi-Drug Resistant Organisms: None Reported Past Surgical History: Heart Catheterization With Stent Additional Past Surgical History / Comment(s): states 7 stents total Past Anesthesia/Blood Transfusion Reactions: No Reported Reaction Date of Last Stent Placement:: July 2019 Past Psychological History: No Psychological Hx Reported Smoking Status: Never smoker Past Alcohol Use History: None Reported Past Drug Use History: None Reported - Past Family History Father Family Medical History: CVA/TIA, Diabetes Mellitus Additional Family Medical History / Comment(s): at 42 from a stroke Mother Family Medical History: No Reported History Additional Family Medical History / Comment(s): at 92 years old from old age Sister(s) Family Medical History: Coronary Artery Disease (CAD) Additional Family Medical History / Comment(s): overweight, enlarged heart, May 2018 Medications and Allergies Home Medications Medication Instructions Recorded Confirmed Type Metoprolol Succinate (ER) [Toprol 50 mg PO BID 07/14/19 04/21/23 History XL] Aspirin EC [Ecotrin Low Dose] 81 mg PO DAILY 04/21/23 04/21/23 History Dapagliflozin Propanediol [Farxiga] 5 mg PO DAILY 04/21/23 04/21/23 History Losartan [Cozaar] 50 mg PO BID 04/21/23 04/21/23 History Rosuvastatin Calcium 5 mg PO HS 04/21/23 04/21/23 History Allergies Allergy/AdvReac Type Severity Reaction Status Date / Time No Known Allergies Allergy Verified 04/21/23 21:46 Physical Exam Vitals: Vital Signs Temp Pulse Resp BP Pulse Ox 04/22/23 10:48 95 04/22/23 07:54 96 04/22/23 07:00 98.2 F 80 16 130/69 97 04/22/23 01:37 99.2 F 94 16 108/61 97 04/21/23 22:00 84 18 133/81 04/21/23 20:22 98.1 F 04/21/23 19:58 86 04/21/23 19:50 89 04/21/23 18:00 104 H 20 144/85 95 04/21/23 17:30 101.7 F H 110 H 26 H 144/85 88 L 04/21/23 16:41 100.1 F H 107 H 20 138/72 93 L 04/21/23 16:20 28 H Intake and Output 04/21/23 04/22/23 04/22/23 22:59 06:59 14:59 Other: # Voids 1 Weight 81.647 kg 81.647 kg GENERAL EXAM: Alert, pleasant 77-year-old female, on 2 L nasal cannula, fairly comfortable in no apparent distress. HEAD: Normocephalic. EYES: Normal reaction of pupils, equal size. NOSE: Clear with pink turbinates. THROAT: No erythema or exudates. NECK: No masses, no JVD. CHEST: No chest wall deformity. LUNGS: Equal air entry with few scattered rhonchi. CVS: S1 and S2 normal with no audible murmur, regular rhythm. ABDOMEN: No hepatosplenomegaly, normal bowel sounds, no guarding or rigidity. SPINE: No scoliosis or deformity SKIN: No rashes CENTRAL NERVOUS SYSTEM: No focal deficits, tone is normal in all 4 extremities. EXTREMITIES: There is no peripheral edema. No clubbing, no cyanosis. Peripheral pulses are intact. Results - Laboratory Findings CBC and BMP: 04/21/23 17:29 04/21/23 17:29 PT/INR, D-dimer PT 10.3 sec (9.0-12.0) 04/21/23 17:29 INR 1.0 (<1.2) 04/21/23 17:29 D-Dimer 2.15 mg/L FEU (<0.60) H 04/22/23 11:15 Abnormal lab findings: Abnormal Labs 04/21/23 04/21/23 04/21/23 17:29 17:29 19:45 WBC 21.8 H Plt Count 490 H Neutrophils # 19.5 H D-Dimer Sodium 135 L Chloride 96 L BUN 19 H Glucose 157 H AST 67 H ALT 69 H Alkaline Phosphatase 230 H Urine Appearance Cloudy H Urine Protein 1+ H Urine Glucose (UA) 4+ H Urine Ketones 1+ H Urine Blood Small H Ur Squamous Epith Cells 5 H Urine Bacteria Occasional H Urine Mucus Rare H 04/22/23 11:15 WBC Plt Count Neutrophils # D-Dimer 2.15 H Sodium Chloride BUN Glucose AST ALT Alkaline Phosphatase Urine Appearance Urine Protein Urine Glucose (UA) Urine Ketones Urine Blood Ur Squamous Epith Cells Urine Bacteria Urine Mucus - Diagnostic Findings Chest x-ray: image reviewed Assessment and Plan Assessment: Acute hypoxemic respiratory failure secondary to suspected community-acquired pneumonia Pleuritic chest pain secondary to above Febrile illness secondary to above Leukocytosis secondary to above Mild transaminitis History of hypertension Hyperlipidemia Coronary disease with previous stent placement 7 Diabetes mellitus, type II Plan: The patient was seen and evaluated Chest x-ray, labs and medications reviewed Check a d-dimer May need CT angiogram Continue ceftriaxone and azithromycin DuoNeb inhalations as needed Titrate down the FiO2 as tolerated Heparin for DVT prophylaxis We will continue to follow and make further recommendations based on her clinical status I have personally seen and examined the patient, performed the documentation and the assessment and plan as written. Number of minutes spent on the visit: 20.
--- NOTE | 2023-04-22 14:58 | CT ---
EXAMINATION TYPE: CT angio chest DATE OF EXAM: 04/22/2023 COMPARISON: Radiograph 04/22/2023 HISTORY: 77 year-old female shortness of breath, hypoxemia, PE, elevated d-dimer TECHNIQUE: Contiguous axial scanning of the chest performed with IV Contrast, patient injected with 1 00 ml mL of Isovue 300. Coronal/sagittal MIP reconstructions performed. CT DLP: 295.6 mGycm Automated exposure control for dose reduction was used. FINDINGS: The heart is borderline in size. Scattered coronary artery calcifications are present throughout. No pericardial effusion. Aorta normal caliber with conventional arch vessel branching anatomy. Mildly enlarged 1.6 cm lower right paratracheal lymph node probably reactive/post inflammatory. Recom mend 3 month follow-up CT to reassess. There is suboptimal contrast bolus with attenuation of only 182 Hounsfield units. No large central or definite lobar branch pulmonary embolus. There is further limitation in assessment due to patient br eathing during the scan. Large bands of focal atelectasis in the bilateral lower lungs. Prominent dependent atelectasis is als o present. No pleural effusion. Small hiatal hernia. Visualized upper abdomen shows some pneumobilia on the last few images. Correlat e for any prior sphincterotomy. Bones: DISH mid and lower thoracic spine. IMPRESSION: 1. SUBOPTIMAL CONTRAST BOLUS IN ADDITION TO PATIENT BREATHING DURING THE SCAN. THIS SIGNIFICANTLY SALES ITS ASSESSMENT FOR PULMONARY EMBOLUS. NO OBVIOUS LARGE CENTRAL OR DEFINITE LOBAR BRANCH PULMONARY EMB OLUS. SEGMENTAL AND MORE DISTAL ARTERIAL BRANCHES ARE LIMITED TO NONDIAGNOSTIC AND EMBOLI IN THESE LO CATIONS CANNOT BE EXCLUDED ON THE BASIS OF THIS EXAM. 2. THREE-VESSEL CORONARY ARTERY DISEASE. 3. LARGE BANDS OF PROBABLE ATELECTASIS IN THE LOWER LUNGS. 4. A 1.6 CM ENLARGED RIGHT PARATRACHEAL LYMPH NODE PROBABLY REACTIVE/POST INFLAMMATORY. THREE-MONTH F OLLOW-UP CT CHEST TO REASSESS. 5. SUGGESTION OF PNEUMOBILIA ON A FEW OF THE LAST IMAGES IN THE SCAN. CORRELATE FOR HISTORY OF PRIOR SPHINCTEROTOMY.
[2023-04-22] MEDS: ACETAMINOPHEN TAB 325 MG TAB PO PRN (15:24)
[2023-04-22] MEDS ORDERED: IBUPROFEN 400 MG TAB PO PRN (15:40)
[2023-04-23 06:16] LABS: Glucose,Whole Blood 129 mg/dL (70-110)
[2023-04-23] MEDS: METOPROLOL SUCCINATE (ER) 50 MG TAB.ER.24H PO SCH ×2 (08:20→21:03)
[2023-04-23] MEDS: FAMOTIDINE 20 MG TAB PO SCH (08:20)
[2023-04-23] MEDS: ASPIRIN 81 MG PO SCH (08:20)
[2023-04-23] MEDS: LOSARTAN 50 MG TAB PO SCH ×2 (08:20→21:03)
[2023-04-23 08:21] LABS: Basophils # (A) 0.1 k/uL (0-0.2); Basophils % (A) 0 %; Eosinophils % (A) 0 %; HCT 37.2 % (34.0-46.0); HGB 11.7 gm/dL (11.4-16.0); Hypochromasia Slight; Lymphocytes # (A) 2.5 k/uL (1.0-4.8); Lymphocytes % (A) 11 %; MCH 28.9 pg (25.0-35.0); MCHC 31.4 g/dL (31.0-37.0); Mean Platelet Volume 7.9; Monocytes # (A) 0.7 k/uL (0-1.0); Monocytes % (A) 3 %; Neutrophils # (A) 19.8 k/uL (1.3-7.7); Neutrophils % (A) 85 %; Platelet Count 472 k/uL (150-450); RBC 4.04 m/uL (3.80-5.40); RDW 14.2 % (11.5-15.5); WBC 23.4 k/uL (3.8-10.6)
[2023-04-23] MEDS: DAPAGLIFLOZIN PROPANEDIOL 5 MG TABLET PO SCH (08:21)
[2023-04-23] MEDS: HEPARIN SODIUM,PORCINE 5,000 UNIT/ML 1 ML VIAL SQ SCH ×2 (08:21→21:03)
[2023-04-23] MEDS: AZITHROMYCIN 500 MG TAB PO SCH (08:21)
[2023-04-23 08:38] LABS: ALT 63 U/L (4-34); AST 68 U/L (14-36); African American GFR (CKD) 76 (>60 ml/min/1.73 sqM); Albumin 2.9 g/dL (3.5-5.0); Albumin/Globulin Ratio 0.9; Alkaline Phosphatase 198 U/L (38-126); Anion Gap 11 mmol/L; Bilirubin,Unconjugated 0.4 mg/dL (0.0-1.1); Blood Urea Nitrogen 13 mg/dL (7-17); Calcium 8.3 mg/dL (8.4-10.2); Carbon Dioxide 21 mmol/L (22-30); Chloride 104 mmol/L (98-107); Globulin 3.4 g/dL; Glucose 133 mg/dL (74-99); Non-African American GFR(CKD) 66 (>60 ml/min/1.73 sqM); Potassium 4.5 mmol/L (3.5-5.1); Sodium 136 mmol/L (137-145); Total Bilirubin 0.6 mg/dL (0.2-1.3); Total Protein 6.3 g/dL (6.3-8.2)
[2023-04-23] MEDS ORDERED: ONDANSETRON 4 MG TAB PO STA (10:09)
[2023-04-23] MEDS ORDERED: ONDANSETRON 4 MG TAB PO PRN (10:09)
[2023-04-23 11:20] LABS: Glucose,Whole Blood 132 mg/dL (70-110)
[2023-04-23] MEDS: DEXTROSE 5%-0.9% NACL 1,000 ML IV SCH ×2 (11:53→21:05)
--- NOTE | 2023-04-23 13:31 | P.PN ---
Subjective Progress Note Date: 04/23/23 This is a very pleasant 77-year-old female patient with a known history of hypertension, hyperlipidemia, diabetes mellitus, and coronary artery disease with 7 stents placed, lifelong nonsmoker. She presented here to the emergency room yesterday with a 2 week history of initially vomiting for a week then fever chills weakness shortness of breath and pleuritic-type chest pain. Chest x-ray revealed some posterior lung base streaky opacities. White count 21.8. Hemoglobin 14.2. Platelets 490. Sodium 135. Potassium 5.1. Bicarb 26. BUN 19. Creatinine 0.99. Glucose 157. AST 67. ALT is 69. D-dimer 2.15. Urinalysis cloudy with 4+ glucose 1+ ketones occasional bacteria. Influenza screen negative. RSV screen negative. COVID-19 screen negative. She did have a T-max of 101.7. She is seen today in consultation in the emergency department. She is currently resting comfortably on a stretcher. Awake and alert in no acute distress. She is maintaining O2 saturations in the mid 90s on 2 L nasal cannula. She's currently afebrile. Hemodynamically stable. She does have a loose nonproductive cough. The patient is seen today 04/23/2023 in follow-up on the regular medical floor. She is currently sitting up in a chair at the bedside. Awake and alert in no acute distress. Currently afebrile. Maintaining good O2 saturation in the 90s on room air. He mechanically stable. She is feeling a bit better today compared to yesterday. Not quite back to her baseline. White count 22.4. Hemoglobin 11.7. Platelets 472. Sodium 136. Potassium 4.5. Bicarb 21. BUN 13. Creatinine 0.87. CT angiogram of the chest was suboptimal but no significant large central or lobar branch pulmonary emboli. There is large pans of probable atelectasis in bilateral bases. Blood cultures are positive for gram-positive cocci in chains. White count 23.4. Hemoglobin 11.7. Sodium 136. Potassium 4.5. Bicarb 21. BUN 13. Creatinine 0.87. Glucose 133. She is currently on ceftriaxone. Remains on bronchodilators. Heparin for DVT prophylaxis. Objective - Vital Signs Vital signs: Vital Signs Temp 97.8 F 04/23/23 07:13 Pulse 80 04/23/23 07:13 Resp 21 04/23/23 07:13 BP 123/74 04/23/23 07:13 Pulse Ox 100 04/23/23 07:13 FiO2 Intake & Output 04/22/23 04/23/23 04/23/23 18:59 06:59 18:59 Weight 81.647 kg Other: Voiding Method Toilet # Voids 2 2 - Exam GENERAL EXAM: Alert, active, pleasant 77-year-old female, up in a chair, on room air, comfortable in no apparent distress. HEAD: Normocephalic. EYES: Normal reaction of pupils, equal size. NOSE: Clear with pink turbinates. THROAT: No erythema or exudates. NECK: No masses, no JVD. CHEST: No chest wall deformity. LUNGS: Equal air entry with few scattered rhonchi. CVS: S1 and S2 normal with no audible murmur, regular rhythm. ABDOMEN: No hepatosplenomegaly, normal bowel sounds, no guarding or rigidity. SPINE: No scoliosis or deformity SKIN: No rashes CENTRAL NERVOUS SYSTEM: No focal deficits, tone is normal in all 4 extremities. EXTREMITIES: There is no peripheral edema. No clubbing, no cyanosis. Peripheral pulses are intact. - Labs CBC & Chem 7: 04/23/23 07:57 04/23/23 07:57 Labs: Abnormal Lab Results - Last 24 Hours (Table) 04/23/23 04/23/23 04/23/23 Range/Units 06:15 07:57 07:57 WBC 23.4 H (3.8-10.6) k/uL Plt Count 472 H (150-450) k/uL Neutrophils # 19.8 H (1.3-7.7) k/uL Sodium 136 L (137-145) mmol/L Carbon Dioxide 21 L (22-30) mmol/L Glucose 133 H (74-99) mg/dL POC Glucose (mg/dL) 129 H (70-110) mg/dL Calcium 8.3 L (8.4-10.2) mg/dL AST 68 H (14-36) U/L ALT 63 H (4-34) U/L Alkaline Phosphatase 198 H (38-126) U/L Albumin 2.9 L (3.5-5.0) g/dL 04/23/23 Range/Units 11:17 WBC (3.8-10.6) k/uL Plt Count (150-450) k/uL Neutrophils # (1.3-7.7) k/uL Sodium (137-145) mmol/L Carbon Dioxide (22-30) mmol/L Glucose (74-99) mg/dL POC Glucose (mg/dL) 132 H (70-110) mg/dL Calcium (8.4-10.2) mg/dL AST (14-36) U/L ALT (4-34) U/L Alkaline Phosphatase (38-126) U/L Albumin (3.5-5.0) g/dL Microbiology - Last 24 Hours (Table) 04/21/23 17:30 Blood Culture Gram Stain - Preliminary Blood 04/21/23 17:25 Blood Culture Gram Stain - Preliminary Blood Assessment and Plan Assessment: Acute hypoxemic respiratory failure secondary to suspected community-acquired pneumonia Pleuritic chest pain secondary to above Bacteremia secondary to strep species. Currently on ceftriaxone Febrile illness secondary to above Leukocytosis secondary to above Mild transaminitis History of hypertension Hyperlipidemia Coronary disease with previous stent placement 7 Diabetes mellitus, type II Plan: The patient was seen and evaluated CT angiogram, labs and medications reviewed Blood cultures are revealing a strep species Continue ceftriaxone DuoNeb inhalations as needed Heparin for DVT prophylaxis We will continue to follow I have personally seen and examined the patient, performed the documentation and the assessment and plan as written. Number of minutes spent on the visit: 10.
--- NOTE | 2023-04-23 14:23 | P.PN ---
Subjective This is a pleasant 77 years old female with past medical history of Hyperlipidemia, Hypertension, Heart Catheterization With Stent x7 Patient presents because of worsening dyspnea and generalized weakness. Her weakness and all started after she got a shot last Thursday, she got sick and she wants to see her PCP Dr. Lawton will advise her to go to the emergency room but patient decided to wait because her was sick, she was getting worse so she eventually came to the emergency room. She has cough with little chest pain with deep inspiration. She hasn't been eating well for the last 2-3 days. She denies smoking alcohol or illicit drugs. She denies GI, urinary, or neurological symptoms On admission she had a fever of 101.7. Patient is saturating 88% to 93% on room air Labs showing leukocytosis of 21.8. Rest of CBC, INR, BMP is unremarkable Enzymes mildly elevated with AST 67 and ALT 69. Viruses and detected, influenza, RSV at [facility] EKG showed sinus tachycardia and [address]-T changes and LVH. Chest x-ray: Posterior lung bases streaky opacities. Correlate for atelectasis or pneumonia Patient was started with sutures and Zithromax and admitted to the hospital 04/23/2023 Patient feels better but lots of chills. She feels weak but improving, patient stated she started getting around better. She eats well. She had occasional nausea and Zofran is added Vitals are stable Blood culture came back positive for gram-positive cocci in chains Has leukocytosis of 23,000, liver enzymes are stable and mildly elevated She remains on ceftriaxone, Zithromax and normal saline 75 mL/h Review of systems CONSTITUTIONAL: No fever, no malaise, no fatigue. HEENT: No recent visual problems or hearing problems. Denied any sore throat. CARDIOVASCULAR: No orthopnea, PND, no palpitations, no syncope. GASTROINTESTINAL: No diarrhea, no nausea, no vomiting, no abdominal pain. Normoactive bowel sounds. NEUROLOGICAL: No headaches, no weakness, no numbness. HEMATOLOGICAL: Denies any bleeding or petechiae. GENITOURINARY: Denies any burning micturition, frequency, or urgency. Active Medications Generic Name Dose Route Start Last Admin Trade Name Freq PRN Reason Stop Dose Admin Acetaminophen 650 mg 04/21/23 21:34 04/22/23 15:24 Acetaminophen Tab 325 Mg Tab PO 650 mg Q4HR PRN Administration Fever and/ or Pain Albuterol/Ipratropium 3 ml 04/21/23 21:34 04/22/23 14:39 Ipratropium-Albuterol 3 Ml Neb INHALATION 3 ml RT-Q4H PRN Administration shortness of breath Aspirin 81 mg 04/22/23 09:00 04/23/23 08:20 Aspirin 81 Mg PO 81 mg DAILY LEYDA Administration Dapagliflozin 5 mg 04/22/23 09:00 04/23/23 08:21 Dapagliflozin Propanediol 5 Mg Tablet PO 5 mg DAILY LEYDA Administration Famotidine 20 mg 04/23/23 09:00 04/23/23 08:20 Famotidine 20 Mg Tab PO 20 mg DAILY LEYDA Administration Heparin Sodium (Porcine) 5,000 unit 04/22/23 09:00 04/23/23 08:21 Heparin Sodium,Porcine 5,000 Unit/Ml 1 Ml Vial SQ Not Given Q12HR LEYDA Ceftriaxone Sodium 2 gm/ 50 mls @ 100 mls/hr 04/22/23 21:00 04/22/23 20:53 Sodium Chloride IVPB 04/25/23 21:29 100 mls/hr Q24H LEYDA Administration Protocol Dextrose/Sodium Chloride 1,000 mls @ 75 mls/hr 04/22/23 08:00 04/23/23 11:53 Dextrose 5%-Ns Iv Soln IV 75 mls/hr .[id number] LEYDA Administration Ibuprofen 400 mg 04/22/23 15:40 04/22/23 15:46 Ibuprofen 400 Mg Tab PO 400 mg Q6HR PRN Administration Pain Losartan Potassium 50 mg 04/22/23 09:00 04/23/23 08:20 Losartan 50 Mg Tab PO 50 mg BID LEYDA Administration Metoprolol Succinate 50 mg 04/22/23 09:00 04/23/23 08:20 Metoprolol Succinate (Er) 50 Mg Tab.Er.24h PO 50 mg BID LEYDA Administration Miscellaneous Information 1 each 04/21/23 21:34 Pneumonia Protocol Utilized 1 Each Misc PO ONCE PRN Per Protocol Ondansetron HCl 4 mg 04/23/23 10:09 Ondansetron 4 Mg Tab PO Q8HR PRN Nausea And Vomiting Objective - Vital Signs Vital signs: Vital Signs Temp 97.8 F 04/23/23 07:13 Pulse 80 04/23/23 07:13 Resp 21 04/23/23 07:13 BP 123/74 04/23/23 07:13 Pulse Ox 100 04/23/23 07:13 FiO2 Intake & Output 04/22/23 04/23/23 04/23/23 18:59 06:59 18:59 Weight 81.647 kg Other: Voiding Method Toilet # Voids 2 2 - Labs CBC & Chem 7: 04/23/23 07:57 04/23/23 07:57 Labs: Abnormal Lab Results - Last 24 Hours (Table) 04/22/23 04/23/23 04/23/23 Range/Units 11:15 06:15 07:57 WBC 23.4 H (3.8-10.6) k/uL Plt Count 472 H (150-450) k/uL Neutrophils # 19.8 H (1.3-7.7) k/uL D-Dimer 2.15 H (<0.60) mg/L FEU Sodium (137-145) mmol/L Carbon Dioxide (22-30) mmol/L Glucose (74-99) mg/dL POC Glucose (mg/dL) 129 H (70-110) mg/dL Calcium (8.4-10.2) mg/dL AST (14-36) U/L ALT (4-34) U/L Alkaline Phosphatase (38-126) U/L Albumin (3.5-5.0) g/dL 04/23/23 Range/Units 07:57 WBC (3.8-10.6) k/uL Plt Count (150-450) k/uL Neutrophils # (1.3-7.7) k/uL D-Dimer (<0.60) mg/L FEU Sodium 136 L (137-145) mmol/L Carbon Dioxide 21 L (22-30) mmol/L Glucose 133 H (74-99) mg/dL POC Glucose (mg/dL) (70-110) mg/dL Calcium 8.3 L (8.4-10.2) mg/dL AST 68 H (14-36) U/L ALT 63 H (4-34) U/L Alkaline Phosphatase 198 H (38-126) U/L Albumin 2.9 L (3.5-5.0) g/dL Microbiology - Last 24 Hours (Table) 04/21/23 17:30 Blood Culture Gram Stain - Preliminary Blood 04/21/23 17:25 Blood Culture Gram Stain - Preliminary Blood
[2023-04-23 16:06] LABS: Glucose,Whole Blood 142 mg/dL (70-110)
--- NOTE | 2023-04-24 00:10 | P.CONS ---
History of Present Illness - Reason for Consult Consult date: 04/23/23 Septicemia Requesting physician: rBidger E Sheet - Chief Complaint Shortness of breath not feeling well X few days - History of Present Illness Patient is a 77-year-old female with a past medical history significant for diabetes mellitus hypertension hyperlipidemia angina presented to the hospital 2 days ago for evaluation of increasing shortness of breath and this patient symptom has been getting worse for about a week before presentation to hospital patient was complaining of fever off-and-on and has developed shortness of breath on minimal exertion patient denies having any chest pain she did have a cough moderate intensity with occasional sputum patient did have some nausea but no vomiting no abdominal pain or any diarrhea with the symptoms the patient has been evaluated on presentation to the hospital patient did have a fever of 101.7 F patient was tachycardic heart rate of 107 hypoxic with O2 sats of 88% on room air patient did have vital of 21.8 which is up with 23.4 liver enzymes mildly elevated creatinine was normal urine was negative influenza RSV and COVID testing was negative patient did have a chest x-ray posterior lung base opacity patient also have a CT angiogram of the chest with some motion artifact atelectasis lower lungs patient did have a blood cultures came back positive with gram-positive cocci in chain that has prompted this infectious disease consultation patient is currently on Rocephin Review of Systems Positive point and negatives has been mentioned in the HPI, complete review of systems was performed and all other systems are negative Past Medical History Past Medical History: Chest Pain / Angina, Diabetes Mellitus, Hyperlipidemia, Hypertension Additional Past Medical History / Comment(s): positive stress test on 07-11, diet controlled DM History of Any Multi-Drug Resistant Organisms: None Reported Past Surgical History: Heart Catheterization With Stent Additional Past Surgical History / Comment(s): states 7 stents total Past Anesthesia/Blood Transfusion Reactions: No Reported Reaction Date of Last Stent Placement:: July 2019 Past Psychological History: No Psychological Hx Reported Smoking Status: Never smoker Past Alcohol Use History: None Reported Past Drug Use History: None Reported - Past Family History Father Family Medical History: CVA/TIA, Diabetes Mellitus Additional Family Medical History / Comment(s): at 42 from a stroke Mother Family Medical History: No Reported History Additional Family Medical History / Comment(s): at 92 years old from old age Sister(s) Family Medical History: Coronary Artery Disease (CAD) Additional Family Medical History / Comment(s): overweight, enlarged heart, May 2018 Medications and Allergies Home Medications Medication Instructions Recorded Confirmed Type Metoprolol Succinate (ER) [Toprol 50 mg PO BID 07/14/19 04/21/23 History XL] Aspirin EC [Ecotrin Low Dose] 81 mg PO DAILY 04/21/23 04/21/23 History Dapagliflozin Propanediol [Farxiga] 5 mg PO DAILY 04/21/23 04/21/23 History Losartan [Cozaar] 50 mg PO BID 04/21/23 04/21/23 History Rosuvastatin Calcium 5 mg PO HS 04/21/23 04/21/23 History Ampicillin-Sulbactam [Unasyn 3 gm 3 gm IVPB Q6H 14 Days #56 each 05/01/23 Rx vial] Allergies Allergy/AdvReac Type Severity Reaction Status Date / Time No Known Allergies Allergy Verified 04/21/23 21:46 Physical Exam Vitals: Vital Signs Temp Pulse Pulse Resp BP BP Pulse Ox 04/23/23 07:13 97.8 F 80 21 123/74 100 04/23/23 01:37 98.3 F 96 18 137/72 92 L 04/22/23 22:50 98.1 F 86 18 180/66 100 04/22/23 22:01 72 17 126/93 98 04/22/23 16:24 98.8 F 99 04/22/23 15:23 102.6 F H 113 H 14 149/70 93 L 04/22/23 14:50 86 04/22/23 14:39 88 Intake and Output 04/22/23 04/23/23 04/23/23 22:59 06:59 14:59 Other: Voiding Method Toilet # Voids 2 2 GENERAL DESCRIPTION: Elderly female lying in bed, no distress. No tachypnea or accessory muscle of respiration use. HEENT: Shows Pallor , no scleral icterus. Oral mucous membrane is dry. No pharyngeal erythema or thrush NECK: Trachea central, no thyromegaly. LUNGS: Unlabored breathing. Decreased breath sound at the base HEART: S1, S2, regular rate and rhythm. No loud murmur ABDOMEN: Soft, no tenderness , EXTREMITIES: No edema of feet. SKIN: No rash, no masses palpable. NEUROLOGICAL: The patient is awake, alert, oriented x3, mood and affect normal. Results CBC & Chem 7: 05/01/23 12:13 05/01/23 12:13 Labs: Abnormal Lab Results - Last 24 Hours (Table) 04/22/23 04/23/23 04/23/23 Range/Units 11:15 06:15 07:57 WBC 23.4 H (3.8-10.6) k/uL Plt Count 472 H (150-450) k/uL Neutrophils # 19.8 H (1.3-7.7) k/uL D-Dimer 2.15 H (<0.60) mg/L FEU Sodium (137-145) mmol/L Carbon Dioxide (22-30) mmol/L Glucose (74-99) mg/dL POC Glucose (mg/dL) 129 H (70-110) mg/dL Calcium (8.4-10.2) mg/dL AST (14-36) U/L ALT (4-34) U/L Alkaline Phosphatase (38-126) U/L Albumin (3.5-5.0) g/dL 04/23/23 04/23/23 Range/Units 07:57 11:17 WBC (3.8-10.6) k/uL Plt Count (150-450) k/uL Neutrophils # (1.3-7.7) k/uL D-Dimer (<0.60) mg/L FEU Sodium 136 L (137-145) mmol/L Carbon Dioxide 21 L (22-30) mmol/L Glucose 133 H (74-99) mg/dL POC Glucose (mg/dL) 132 H (70-110) mg/dL Calcium 8.3 L (8.4-10.2) mg/dL AST 68 H (14-36) U/L ALT 63 H (4-34) U/L Alkaline Phosphatase 198 H (38-126) U/L Albumin 2.9 L (3.5-5.0) g/dL Microbiology - Last 24 Hours (Table) 04/21/23 17:30 Blood Culture Gram Stain - Preliminary Blood 04/21/23 17:25 Blood Culture Gram Stain - Preliminary Blood Assessment and Plan (1) Bacteremia Current Visit: Yes Status: Acute Code(s): R78.81 - BACTEREMIA SNOMED Code(s): 8223894 (2) Fever Current Visit: Yes Status: Acute Code(s): R50.9 - FEVER, UNSPECIFIED SNOMED Code(s): 163604426 Plan: 1patient present to hospital with sepsis in this patient with a fever tachycardia hypoxemia elevated white count with concern for possible pneumonia however the patient also have elevated liver enzymes and abnormal CT angiogram of the chest with some pneumobilia concern for possible intra-abdominal source not entirely excluded 2-we will obtain ultrasound of the liver and gallbladder area 3-blood cultures will be repeated document clearance of bacteremia 4-switch antibiotic therapy to Unasyn 3 g every 6 hours Multiple family members at the bedside questions were answered We will follow on clinical condition and cultures to further adjust medication if needed Thank you for this consultation we will follow the patient along with you Dictation was produced using [employer] dictation software. please excuse any grammatical, word or spelling errors. Time with Patient: Greater than 30
[2023-04-24] MEDS: ACETAMINOPHEN TAB 325 MG TAB PO PRN ×2 (01:14→19:46)
[2023-04-24] MEDS: AMPICILLIN-SULBACTAM 3 GM in SODIUM CHLORIDE 0.9% 100 ML IVPB SCH ×5 (01:14→23:03)
--- NOTE | 2023-04-24 08:49 | US ---
EXAMINATION TYPE: US abdomen complete DATE OF EXAM: 04/24/2023 COMPARISON: NONE CLINICAL INDICATION: Female, 77 years old with history of Elevated LFT AND pneumobilia on CT; Elevate d liver enzymes TECHNIQUE: Multiple sonographic images of the abdomen are obtained. FINDINGS: EXAM MEASUREMENTS: Liver Length: 18.5 cm Gallbladder Wall: 1.0 cm CBD: 0.4 cm Spleen: 11.2 cm Right Kidney: 9.8 x 4.6 x 4.3 cm Left Kidney: 9.5 x 4.6 x 4.4 cm Pancreas: Tail obscured by overlying bowel gas Liver: complex,heterogeneous lesion = 8.8 x 7.2 x 7.0cm Gallbladder: stones, thickened wall Evidence for sonographic Martinez's sign: no CBD: appears wnl Spleen: wnl Right Kidney: anechoic lesion lower pole = 4.1 x 4.4 x 4.5cm Left Kidney: no evidence of hydronephrosis Upper IVC: wnl Abd Aorta: Obscured by overlying bowel gas IMPRESSION: 1. Cholelithiasis with thickened gallbladder wall correlate cholecystitis. 2. Complex heterogeneous lesion measuring 8.8 cm and the liver. CT scan abdomen recommended to assess for neoplasm. 3. Indeterminate right renal lesion.
[2023-04-24] MEDS: HEPARIN SODIUM,PORCINE 5,000 UNIT/ML 1 ML VIAL SQ SCH ×2 (11:11→23:02)
[2023-04-24] MEDS: ASPIRIN 81 MG PO SCH (11:11)
[2023-04-24] MEDS: LOSARTAN 50 MG TAB PO SCH ×2 (11:12→23:03)
[2023-04-24] MEDS: METOPROLOL SUCCINATE (ER) 50 MG TAB.ER.24H PO SCH ×2 (11:12→23:03)
[2023-04-24] MEDS: DAPAGLIFLOZIN PROPANEDIOL 5 MG TABLET PO SCH (11:12)
[2023-04-24] MEDS: FAMOTIDINE 20 MG TAB PO SCH (11:12)
[2023-04-24 11:29] LABS: Basophils # (A) 0.06 X 10*3/uL (0.00-0.10); Basophils % (A) 0.3 %; Eosinophils # (A) 0.07 X 10*3/uL (0.04-0.35); Eosinophils % (A) 0.4 %; HCT 36.3 % (37.2-46.3); HGB 11.1 d/dL (12.0-15.0); Lymphocytes # (A) 3.34 X 10*3/uL (0.90-5.00); Lymphocytes % (A) 17.7 %; MCH 27.7 pg (27.0-32.0); MCHC 30.6 d/dL (32.0-37.0); MCV 90.5 FL (80.0-97.0); Mean Platelet Volume 10.5 FL (9.5-12.2); Monocytes # (A) 1.02 X 10*3/uL (0.20-1.00); Monocytes % (A) 5.4 %; NRBC Per 100 WBC 0 X 10*3/uL (0.00-0.01); Platelet Count 527 X 10*3/uL (140-440); RBC 4.01 X 10*6/uL (4.10-5.20); RDW 14.9 % (11.5-14.5); WBC 18.82 X 10*3/uL (4.50-10.00)
--- NOTE | 2023-04-24 11:40 | P.PN ---
Subjective This is a pleasant 77 years old female with past medical history of Hyperlipidemia, Hypertension, Heart Catheterization With Stent x7 Patient presents because of worsening dyspnea and generalized weakness. Her weakness and all started after she got a shot last Thursday, she got sick and she wants to see her PCP Dr. Lawton will advise her to go to the emergency room but patient decided to wait because her was sick, she was getting worse so she eventually came to the emergency room. She has cough with little chest pain with deep inspiration. She hasn't been eating well for the last 2-3 days. She denies smoking alcohol or illicit drugs. She denies GI, urinary, or neurological symptoms On admission she had a fever of 101.7. Patient is saturating 88% to 93% on room air Labs showing leukocytosis of 21.8. Rest of CBC, INR, BMP is unremarkable Enzymes mildly elevated with AST 67 and ALT 69. Viruses and detected, influenza, RSV at [facility] EKG showed sinus tachycardia and [address]-T changes and LVH. Chest x-ray: Posterior lung bases streaky opacities. Correlate for atelectasis or pneumonia Patient was started with sutures and Zithromax and admitted to the hospital 04/23/2023 Patient feels better but lots of chills. She feels weak but improving, patient stated she started getting around better. She eats well. She had occasional nausea and Zofran is added Vitals are stable Blood culture came back positive for gram-positive cocci in chains Has leukocytosis of 23,000, liver enzymes are stable and mildly elevated She remains on ceftriaxone, Zithromax and normal saline 75 mL/h 04/24/2023 Patient generally feels better with less chills and no nausea. She still feels generally weak. No respiratory symptoms no chest pain or dyspnea even with exertion. No abdominal pain but patient reports diarrhea about 2 bouts of loose stool this morning Blood culture came back positive for beta hemolytic Streptococcus, GI source is suspected. Therefore ultrasound of the abdomen showing possible cholecystitis but patient is asymptomatic. Computed tomography scan admission also showed pneumobilia most likely the source of bacteremia. Also showing liver mass and CAT scan of the abdomen is no significant Objective - Vital Signs Vital signs: Vital Signs Temp 97.7 F 04/24/23 07:14 Pulse 79 04/24/23 11:22 Resp 16 04/24/23 11:22 BP 126/79 04/24/23 07:14 Pulse Ox 97 04/24/23 07:14 FiO2 Intake & Output 04/23/23 04/24/23 04/24/23 18:59 06:59 18:59 Other: Voiding Method Toilet Toilet # Voids 2 - Exam GENERAL: The patient is alert and oriented x3, not in any acute distress. Well developed, well nourished. HEENT: Pupils are round and equally reacting to light. EOMI. No scleral icterus. No conjunctival pallor. Normocephalic, atraumatic. No pharyngeal erythema. No thyromegaly. CARDIOVASCULAR: S1 and S2 present. No murmurs, rubs, or gallops. PULMONARY: Chest is clear to auscultation, no wheezing , no crackles. ABDOMEN: Soft, nontender, nondistended, normoactive bowel sounds. No palpable organomegaly. MUSCULOSKELETAL: No joint swelling or deformity. EXTREMITIES: No cyanosis, clubbing, or pedal edema. NEUROLOGICAL: Gross neurological examination did not reveal any focal deficits. SKIN: No rashes. no petechiae. - Labs CBC & Chem 7: 04/24/23 06:26 04/23/23 07:57 Labs: Abnormal Lab Results - Last 24 Hours (Table) 04/23/23 04/23/23 04/24/23 Range/Units 07:57 16:05 06:26 WBC 18.82 H (4.50-10.00) X 10*3/uL RBC 4.01 L (4.10-5.20) X 10*6/uL Hgb 11.1 L (12.0-15.0) d/dL Hct 36.3 L (37.2-46.3) % MCHC 30.6 L (32.0-37.0) d/dL RDW 14.9 H (11.5-14.5) % Plt Count 527 H (140-440) X 10*3/uL Neutrophils # 14.10 H (1.80-7.70) X 10*3/uL Monocytes # 1.02 H (0.20-1.00) X 10*3/uL POC Glucose (mg/dL) 142 H (70-110) mg/dL Procalcitonin 6.07 H (0.02-0.09) ng/mL Microbiology - Last 24 Hours (Table) 04/21/23 17:30 Blood Culture Gram Stain - Preliminary Blood Blood Culture - Preliminary Beta Hemolytic Streptococcus F 04/21/23 17:25 Blood Culture Gram Stain - Preliminary Blood Blood Culture - Preliminary Beta Hemolytic Streptococcus F Assessment and Plan Assessment: Sepsis, fever and a leukocytosis Cholecystitis Liver Mass Mild transaminitis Hypertension Hyperlipidemia History of coronary artery disease status post stent 7 Obesity with BMI of 31.9 Plan: Surgical consult for gallbladder disease Consider CAT scan for liver mass Continue with antibiotic Continue with gentle hydration Continue with oxygen Continue with pulmonary consult Follow-up culture results Labs and medication were reviewed.. Continue same treatment. Continue with symptomatic treatment. Resume home medication. Monitor labs and vitals. DVT and GI prophylaxis. Further recommendations as per clinical course of the patient DVT prophylaxis: Subcutaneous heparin GI Prophylaxis: Pepcid PT/OT: Pending Prognosis is guarded
[2023-04-24 11:45] LABS: ALT 71 U/L (8-44); AST 69 U/L (13-35); Albumin 2.8 d/dL (3.8-4.9); Albumin/Globulin Ratio 0.82 Ratio (1.60-3.17); Alkaline Phosphatase 173 U/L (41-126); Blood Urea Nitrogen 9.5 mg/dL (9.0-27.0); Calcium 8.4 mg/dL (8.7-10.3); Carbon Dioxide 23.1 mmol/L (21.6-31.8); Chloride 102 mmol/L (96-109); Globulin 3.4 d/dL (1.6-3.3); Glucose 111 mg/dL (70-110); Potassium 4.1 mmol/L (3.5-5.5); Sodium 139 mmol/L (135-145); Total Bilirubin 0.4 mg/dL (0.3-1.2); Total Protein 6.2 d/dL (6.2-8.2)
--- NOTE | 2023-04-24 15:27 | P.PN ---
Subjective Progress Note Date: 04/24/23 This is a very pleasant 77-year-old female patient with a known history of hypertension, hyperlipidemia, diabetes mellitus, and coronary artery disease with 7 stents placed, lifelong nonsmoker. She presented here to the emergency room yesterday with a 2 week history of initially vomiting for a week then fever chills weakness shortness of breath and pleuritic-type chest pain. Chest x-ray revealed some posterior lung base streaky opacities. White count 21.8. Hemoglobin 14.2. Platelets 490. Sodium 135. Potassium 5.1. Bicarb 26. BUN 19. Creatinine 0.99. Glucose 157. AST 67. ALT is 69. D-dimer 2.15. Urinalysis cloudy with 4+ glucose 1+ ketones occasional bacteria. Influenza screen negative. RSV screen negative. COVID-19 screen negative. She did have a T-max of 101.7. She is seen today in consultation in the emergency department. She is currently resting comfortably on a stretcher. Awake and alert in no acute distress. She is maintaining O2 saturations in the mid 90s on 2 L nasal cannula. She's currently afebrile. Hemodynamically stable. She does have a loose nonproductive cough. The patient is seen today 04/23/2023 in follow-up on the regular medical floor. She is currently sitting up in a chair at the bedside. Awake and alert in no acute distress. Currently afebrile. Maintaining good O2 saturation in the 90s on room air. He mechanically stable. She is feeling a bit better today compared to yesterday. Not quite back to her baseline. White count 22.4. Hemoglobin 11.7. Platelets 472. Sodium 136. Potassium 4.5. Bicarb 21. BUN 13. Creatinine 0.87. CT angiogram of the chest was suboptimal but no significant large central or lobar branch pulmonary emboli. There is large pans of probable atelectasis in bilateral bases. Blood cultures are positive for gram-positive cocci in chains. White count 23.4. Hemoglobin 11.7. Sodium 136. Potassium 4.5. Bicarb 21. BUN 13. Creatinine 0.87. Glucose 133. She is currently on ceftriaxone. Remains on bronchodilators. Heparin for DVT prophylaxis. The patient is seen today 04/24/2023 in follow-up on the regular medical floor. She is awake and alert in no acute distress. Sitting up in a chair at the bedside. She denies any worsening shortness of breath, cough or congestion. Maintaining O2 saturations in the 90s on room air. She's afebrile. Hemodynamically stable. Ultrasound of the abdomen revealed evidence of cholelithiasis with thickened gallbladder walk relate with cholecystitis. There is a complex heterogenous lesion measuring up to 8.8 cm in the liver. Indeterminate right renal lesion. Blood cultures are positive for beta- hemolytic streptococcus F. Pro calcitonin was 6.07. White count 18.8. Hemoglobin 11.1. Sodium 139. Potassium 4.1. Bicarb 23. BUN 10. Creatinine 1.0. Glucose 111. AST 69. ALT 71. Alk phos 173. She is currently on Unasyn. D5 and half-normal saline at 75 ML's per hour. Objective - Vital Signs Vital signs: Vital Signs Temp 98.7 F 04/24/23 12:50 Pulse 89 04/24/23 12:50 Resp 18 04/24/23 12:50 BP 105/65 04/24/23 12:50 Pulse Ox 96 04/24/23 12:50 FiO2 Intake & Output 04/23/23 04/24/23 04/24/23 18:59 06:59 18:59 Other: Voiding Method Toilet Toilet # Voids 2 - Exam GENERAL EXAM: Alert, pleasant 77-year-old female, on room air, comfortable in no apparent distress. HEAD: Normocephalic. EYES: Normal reaction of pupils, equal size. NOSE: Clear with pink turbinates. THROAT: No erythema or exudates. NECK: No masses, no JVD. CHEST: No chest wall deformity. LUNGS: Equal air entry with few scattered rhonchi. CVS: S1 and S2 normal with no audible murmur, regular rhythm. ABDOMEN: No hepatosplenomegaly, normal bowel sounds, no guarding or rigidity. SPINE: No scoliosis or deformity SKIN: No rashes CENTRAL NERVOUS SYSTEM: No focal deficits, tone is normal in all 4 extremities. EXTREMITIES: There is no peripheral edema. No clubbing, no cyanosis. Peripheral pulses are intact. - Labs CBC & Chem 7: 04/24/23 06:26 04/24/23 06:26 Labs: Abnormal Lab Results - Last 24 Hours (Table) 04/23/23 04/23/23 04/24/23 Range/Units 07:57 16:05 06:26 WBC 18.82 H (4.50-10.00) X 10*3/uL RBC 4.01 L (4.10-5.20) X 10*6/uL Hgb 11.1 L (12.0-15.0) d/dL Hct 36.3 L (37.2-46.3) % MCHC 30.6 L (32.0-37.0) d/dL RDW 14.9 H (11.5-14.5) % Plt Count 527 H (140-440) X 10*3/uL Neutrophils # 14.10 H (1.80-7.70) X 10*3/uL Monocytes # 1.02 H (0.20-1.00) X 10*3/uL Anion Gap (4.00-12.00) mmol/L Est GFR (CKD-EPI) (>=60) BUN/Creatinine Ratio (12.00-20.00) Ratio Glucose (70-110) mg/dL POC Glucose (mg/dL) 142 H (70-110) mg/dL Calcium (8.7-10.3) mg/dL AST (13-35) U/L ALT (8-44) U/L Alkaline Phosphatase (41-126) U/L Albumin (3.8-4.9) d/dL Globulin (1.6-3.3) d/dL Albumin/Globulin Ratio (1.60-3.17) Ratio Procalcitonin 6.07 H (0.02-0.09) ng/mL 04/24/23 Range/Units 06:26 WBC (4.50-10.00) X 10*3/uL RBC (4.10-5.20) X 10*6/uL Hgb (12.0-15.0) d/dL Hct (37.2-46.3) % MCHC (32.0-37.0) d/dL RDW (11.5-14.5) % Plt Count (140-440) X 10*3/uL Neutrophils # (1.80-7.70) X 10*3/uL Monocytes # (0.20-1.00) X 10*3/uL Anion Gap 13.90 H (4.00-12.00) mmol/L Est GFR (CKD-EPI) 59 L (>=60) BUN/Creatinine Ratio 9.50 L (12.00-20.00) Ratio Glucose 111 H (70-110) mg/dL POC Glucose (mg/dL) (70-110) mg/dL Calcium 8.4 L (8.7-10.3) mg/dL AST 69 H (13-35) U/L ALT 71 H (8-44) U/L Alkaline Phosphatase 173 H (41-126) U/L Albumin 2.8 L (3.8-4.9) d/dL Globulin 3.4 H (1.6-3.3) d/dL Albumin/Globulin Ratio 0.82 L (1.60-3.17) Ratio Procalcitonin (0.02-0.09) ng/mL Microbiology - Last 24 Hours (Table) 04/21/23 17:30 Blood Culture Gram Stain - Preliminary Blood Blood Culture - Preliminary Beta Hemolytic Streptococcus F 04/21/23 17:25 Blood Culture Gram Stain - Preliminary Blood Blood Culture - Preliminary Beta Hemolytic Streptococcus F Assessment and Plan Assessment: Acute hypoxemic respiratory failure secondary to suspected community-acquired pneumonia. Pro-calcitonin 6.07. Currently on Unasyn. Recovered and on room air Pleuritic chest pain secondary to above Bacteremia secondary to beta hemolytic streptococcus F. Currently on Unasyn Febrile illness secondary to above Leukocytosis secondary to above Mild transaminitis. Ultrasound of the abdomen revealed cholelithiasis with thi ckened gallbladder wall, really for cholecystitis. Complex liver lesion measuring 8.8 x 7.2 x 7.0 cm History of hypertension Hyperlipidemia Coronary disease with previous stent placement 7 Diabetes mellitus, type II Plan: The patient was seen and evaluated Ultrasound of the abdomen, labs and medications reviewed Blood cultures positive for Streptococcus Continue Unasyn DuoNeb inhalations as needed Heparin for DVT prophylaxis Currently stable and on room air We will continue to follow I have personally seen and examined the patient, performed the documentation and the assessment and plan as written. Number of minutes spent on the visit: 10.
[2023-04-24] MEDS: DEXTROSE 5%-0.9% NACL 1,000 ML IV SCH ×2 (17:10→19:46)
--- NOTE | 2023-04-24 17:25 | P.PN ---
Subjective Progress Note Date: 04/24/23 Principal diagnosis: Bacteremia possible cholecystitis Patient is a 77-year-old female with a past medical history significant for diabetes mellitus hypertension hyperlipidemia angina presented to the hospital for evaluation of increasing shortness of breath, patient no ticed to be septic with initial concern for possible pneumonia CT angiogram did not show any consolidation and a blood cultures positive for group F strep. On today's evaluation that is 04/24/2023, the patient did have a low-grade fever of 99.8F the patient is breathing comfortably on room air, the patient denies chest pain or worsening cough, patient denies abdominal pain and no nausea/vomiting and no diarrhea has been reported. Patient white count at 18.82, creatinine is 1.0, abnormal ultrasound suggesting of cholecystitis Objective - Vital Signs Vital signs: Vital Signs Temp 97.7 F 04/24/23 07:14 Pulse 79 04/24/23 11:22 Resp 16 04/24/23 11:22 BP 126/79 04/24/23 07:14 Pulse Ox 97 04/24/23 07:14 FiO2 Intake & Output 04/23/23 04/24/23 04/24/23 18:59 06:59 18:59 Other: Voiding Method Toilet Toilet # Voids 2 - Exam GENERAL DESCRIPTION: An elderly female up in the chair in no distress RESPIRATORY SYSTEM: Unlabored breathing , decreased breath sounds at bases HEART: S1 S2 regular rate and rhythm , ABDOMEN: Soft , no tenderness EXTREMITIES: No edema feet - Labs CBC & Chem 7: 04/24/23 06:26 04/24/23 06:26 Labs: Abnormal Lab Results - Last 24 Hours (Table) 04/23/23 04/23/23 04/24/23 Range/Units 07:57 16:05 06:26 WBC 18.82 H (4.50-10.00) X 10*3/uL RBC 4.01 L (4.10-5.20) X 10*6/uL Hgb 11.1 L (12.0-15.0) d/dL Hct 36.3 L (37.2-46.3) % MCHC 30.6 L (32.0-37.0) d/dL RDW 14.9 H (11.5-14.5) % Plt Count 527 H (140-440) X 10*3/uL Neutrophils # 14.10 H (1.80-7.70) X 10*3/uL Monocytes # 1.02 H (0.20-1.00) X 10*3/uL POC Glucose (mg/dL) 142 H (70-110) mg/dL Procalcitonin 6.07 H (0.02-0.09) ng/mL Microbiology - Last 24 Hours (Table) 04/21/23 17:30 Blood Culture Gram Stain - Preliminary Blood Blood Culture - Preliminary Beta Hemolytic Streptococcus F 04/21/23 17:25 Blood Culture Gram Stain - Preliminary Blood Blood Culture - Preliminary Beta Hemolytic Streptococcus F Assessment and Plan (1) Bacteremia Current Visit: Yes Status: Acute Code(s): R78.81 - BACTEREMIA SNOMED Code(s): 0575233 (2) Abnormal ultrasound of abdomen Current Visit: Yes Status: Acute Code(s): R93.5 - ABN FINDINGS ON DX IMAGING OF ABD REGIONS, INC RETROPERITON SNOMED Code(s): 11125425347998978 Plan: 1patient present to hospital with sepsis in this patient with a fever tachycardia hypoxemia elevated white count with concern for possible pneumonia however the patient also have elevated liver enzymes and abnormal CT angiogram of the chest with some pneumobilia concern for possible intra-abdominal source not entirely excluded 2- ultrasound of the liver and gallbladder area suspicious for cholecystitis, Gen. surgery has been consulted 3Patient to continue Unasyn 3 g every 6 hours Multiple family members at the bedside questions were answered Dictation was produced using [employer] dictation software. please excuse any grammatical, word or spelling errors. Time with Patient: Less than 30
[2023-04-25] MEDS: AMPICILLIN-SULBACTAM 3 GM in SODIUM CHLORIDE 0.9% 100 ML IVPB SCH ×3 (05:23→23:23)
[2023-04-25 06:15] LABS: Glucose,Whole Blood 167 mg/dL (70-110)
[2023-04-25] MEDS: ASPIRIN 81 MG PO SCH (08:54)
[2023-04-25] MEDS: FAMOTIDINE 20 MG TAB PO SCH (08:54)
[2023-04-25] MEDS: DAPAGLIFLOZIN PROPANEDIOL 5 MG TABLET PO SCH (08:54)
[2023-04-25] MEDS: HEPARIN SODIUM,PORCINE 5,000 UNIT/ML 1 ML VIAL SQ SCH ×2 (08:54→20:31)
[2023-04-25] MEDS: METOPROLOL SUCCINATE (ER) 50 MG TAB.ER.24H PO SCH ×2 (08:54→20:31)
[2023-04-25] MEDS: LOSARTAN 50 MG TAB PO SCH ×2 (08:54→20:31)
--- NOTE | 2023-04-25 13:36 | P.PN ---
Subjective Progress Note Date: 04/25/23 Principal diagnosis: Bacteremia possible cholecystitis Patient is a 77-year-old female with a past medical history significant for diabetes mellitus hypertension hyperlipidemia angina presented to the hospital for evaluation of increasing shortness of breath, patient no ticed to be septic with initial concern for possible pneumonia CT angiogram did not show any consolidation and a blood cultures positive for group F strep. On today's evaluation that is 04/25/2023, the patient remains to be afebrile the patient is breathing comfortably on room air and not requiring supplemental oxygen, the patient denies chest pain and no significant cough, patient denies abdominal pain and no nausea/vomiting or diarrhea Patient white count at 18.82, creatinine is 1.0 as of yesterday , abdominal ultrasound suggesting of cholecystitis Objective - Vital Signs Vital signs: Vital Signs Temp 98.1 F 04/25/23 07:20 Pulse 78 04/25/23 07:20 Resp 18 04/25/23 07:20 BP 138/76 04/25/23 07:20 Pulse Ox 93 L 04/25/23 07:20 FiO2 Intake & Output 04/24/23 04/25/23 04/25/23 18:59 06:59 18:59 Other: Voiding Method Toilet Toilet # Voids 4 3 # Bowel Movements 1 - Exam GENERAL DESCRIPTION: An elderly female up in the chair in no distress RESPIRATORY SYSTEM: Unlabored breathing , decreased breath sounds at bases HEART: S1 S2 regular rate and rhythm , ABDOMEN: Soft , no tenderness EXTREMITIES: No edema feet - Labs CBC & Chem 7: 04/24/23 06:26 04/24/23 06:26 Labs: Abnormal Lab Results - Last 24 Hours (Table) 04/25/23 Range/Units 06:13 POC Glucose (mg/dL) 167 H (70-110) mg/dL Assessment and Plan (1) Bacteremia Current Visit: Yes Status: Acute Code(s): R78.81 - BACTEREMIA SNOMED Code(s): 1132737 (2) Abnormal ultrasound of abdomen Current Visit: Yes Status: Acute Code(s): R93.5 - ABN FINDINGS ON DX IMAGING OF ABD REGIONS, INC RETROPERITON SNOMED Code(s): 97311248646515744 Plan: 1patient present to hospital with sepsis in this patient with a fever tachycardia hypoxemia elevated white count with concern for possible pneumonia however the patient also have elevated liver enzymes and abnormal CT angiogram of the chest with some pneumobilia concern for possible intra-abdominal source not entirely excluded 2- ultrasound of the liver and gallbladder area suspicious for cholecystitis, Gen. surgery has been consulted, await recommendation 3Patient has shown clinical improvment and to continue Unasyn 3 g every 6 hours Multiple family members at the bedside questions were answered Dictation was produced using [employer] dictation software. please excuse any grammatical, word or spelling errors. Time with Patient: Less than 30
--- NOTE | 2023-04-25 13:51 | P.PN ---
Subjective Progress Note Date: 04/25/23 This is a very pleasant 77-year-old female patient with a known history of hypertension, hyperlipidemia, diabetes mellitus, and coronary artery disease with 7 stents placed, lifelong nonsmoker. She presented here to the emergency room yesterday with a 2 week history of initially vomiting for a week then fever chills weakness shortness of breath and pleuritic-type chest pain. Chest x-ray revealed some posterior lung base streaky opacities. White count 21.8. Hemoglobin 14.2. Platelets 490. Sodium 135. Potassium 5.1. Bicarb 26. BUN 19. Creatinine 0.99. Glucose 157. AST 67. ALT is 69. D-dimer 2.15. Urinalysis cloudy with 4+ glucose 1+ ketones occasional bacteria. Influenza screen negative. RSV screen negative. COVID-19 screen negative. She did have a T-max of 101.7. She is seen today in consultation in the emergency department. She is currently resting comfortably on a stretcher. Awake and alert in no acute distress. She is maintaining O2 saturations in the mid 90s on 2 L nasal cannula. She's currently afebrile. Hemodynamically stable. She does have a loose nonproductive cough. The patient is seen today 04/23/2023 in follow-up on the regular medical floor. She is currently sitting up in a chair at the bedside. Awake and alert in no acute distress. Currently afebrile. Maintaining good O2 saturation in the 90s on room air. He mechanically stable. She is feeling a bit better today compared to yesterday. Not quite back to her baseline. White count 22.4. Hemoglobin 11.7. Platelets 472. Sodium 136. Potassium 4.5. Bicarb 21. BUN 13. Creatinine 0.87. CT angiogram of the chest was suboptimal but no significant large central or lobar branch pulmonary emboli. There is large pans of probable atelectasis in bilateral bases. Blood cultures are positive for gram-positive cocci in chains. White count 23.4. Hemoglobin 11.7. Sodium 136. Potassium 4.5. Bicarb 21. BUN 13. Creatinine 0.87. Glucose 133. She is currently on ceftriaxone. Remains on bronchodilators. Heparin for DVT prophylaxis. The patient is seen today 04/24/2023 in follow-up on the regular medical floor. She is awake and alert in no acute distress. Sitting up in a chair at the bedside. She denies any worsening shortness of breath, cough or congestion. Maintaining O2 saturations in the 90s on room air. She's afebrile. Hemodynamically stable. Ultrasound of the abdomen revealed evidence of cholelithiasis with thickened gallbladder walk relate with cholecystitis. There is a complex heterogenous lesion measuring up to 8.8 cm in the liver. Indeterminate right renal lesion. Blood cultures are positive for beta- hemolytic streptococcus F. Pro calcitonin was 6.07. White count 18.8. Hemoglobin 11.1. Sodium 139. Potassium 4.1. Bicarb 23. BUN 10. Creatinine 1.0. Glucose 111. AST 69. ALT 71. Alk phos 173. She is currently on Unasyn. D5 and half-normal saline at 75 ML's per hour. The patient is seen today 04/25/2023 in follow-up on the regular medical floor. She is sitting up in a chair at the bedside. Awake and alert in no acute distress. Denies any worsening shortness of breath, cough or congestion. She is maintaining good O2 saturations in the 90s on room air. She's been afebrile. Hemodynamically stable. Glucose 167. She remains on antibiotics in the form of Unasyn. D5.45 at 75 ML's per hour. Heparin for DVT prophylaxis. She did have another fever at 101.7 last evening. Objective - Vital Signs Vital signs: Vital Signs Temp 98.1 F 04/25/23 07:20 Pulse 78 04/25/23 07:20 Resp 18 04/25/23 07:20 BP 138/76 04/25/23 07:20 Pulse Ox 93 L 04/25/23 07:20 FiO2 Intake & Output 04/24/23 04/25/23 04/25/23 18:59 06:59 18:59 Other: Voiding Method Toilet Toilet # Voids 4 3 # Bowel Movements 1 - Exam GENERAL EXAM: Alert, active 77-year-old female, up in a chair, on room air, comfortable in no apparent distress. HEAD: Normocephalic. EYES: Normal reaction of pupils, equal size. NOSE: Clear with pink turbinates. THROAT: No erythema or exudates. NECK: No masses, no JVD. CHEST: No chest wall deformity. LUNGS: Equal air entry with few scattered rhonchi. CVS: S1 and S2 normal with no audible murmur, regular rhythm. ABDOMEN: No hepatosplenomegaly, normal bowel sounds, no guarding or rigidity. SPINE: No scoliosis or deformity SKIN: No rashes CENTRAL NERVOUS SYSTEM: No focal deficits, tone is normal in all 4 extremities. EXTREMITIES: There is no peripheral edema. No clubbing, no cyanosis. Peripheral pulses are intact. - Labs CBC & Chem 7: 04/24/23 06:26 04/24/23 06:26 Labs: Abnormal Lab Results - Last 24 Hours (Table) 04/25/23 Range/Units 06:13 POC Glucose (mg/dL) 167 H (70-110) mg/dL Assessment and Plan Assessment: Acute hypoxemic respiratory failure secondary to suspected community-acquired pneumonia. Pro-calcitonin 6.07. Currently on Unasyn. Recovered and on room air Pleuritic chest pain secondary to above Bacteremia secondary to beta hemolytic streptococcus F. Currently on Unasyn. Cholecystitis may be contributing and CT suggests pneumobilia Febrile illness secondary to above Leukocytosis secondary to above Mild transaminitis. Ultrasound of the abdomen revealed cholelithiasis with thickened gallbladder wall, really for cholecystitis. Complex liver lesion measuring 8.8 x 7.2 x 7.0 cm History of hypertension Hyperlipidemia Coronary disease with previous stent placement 7 Diabetes mellitus, type II Plan: The patient was seen and evaluated Labs and medications reviewed Blood cultures positive for Streptococcus Continue Unasyn per ID service Surgical consult pending Heparin for DVT prophylaxis We will continue to follow I have personally seen and examined the patient, performed the documentation and the assessment and plan as written. Number of minutes spent on the visit: 10.
--- NOTE | 2023-04-25 14:02 | P.GSCN ---
History of Present Illness Consult date: 04/25/23 History of present illness: CHIEF COMPLAINT: Sepsis HISTORY OF PRESENT ILLNESS: The patient is a 77-year-old female admitted with sepsis including pneumonia. Patient being followed by infectious disease. During hospitalization, persistent elevated LFTs identified. Additional workup demonstrated cholecystitis. General surgery is consulted. Family at bedside and patient gives additional history, "I never had belly pain." reports that she has 8 heart stents. Cardiology is currently not consulted on her case PAST MEDICAL HISTORY: See list and reviewed PAST SURGICAL HISTORY: See list and reviewed MEDICATIONS: See list and reviewed ALLERGIES: See list and reviewed SOCIAL HISTORY: See list and reviewed FAMILY HISTORY: See list and reviewed REVIEW OF ORGAN SYSTEMS: CONSTITUTIONAL: No fevers or chills. No recent weight loss. EYES: Denies any trouble with vision. No glasses. HEENT: No difficulties with hearing. No nosebleeds. No difficulty swallowing. RESPIRATORY: Denies pneumonia. Denies any troubles with breathing or dyspnea on exertion. CARDIOVASCULAR: Multiple cardiac stents 7. GASTROINTESTINAL: Denies fatty food intolerance. Denies change in bowel habits and gas bloat. GENITOURINARY: Denies any blood in urine or increased urinary frequency. NEUROLOGICAL: Denies any numbness or tingling along the distal extremities. No seizure disorders or headaches. MUSCULOSKELETAL: Denies any back pain, stiffness or joint arthritis. SKIN: No current skin cancer. No rash. PSYCHIATRIC: Denies current depression or suicidal thoughts. ENDOCRINE: Denies current thyroid disorders. Denies any blood sugar glucose intolerance. HEME/LYMPHATIC: Denies any lumps and bumps around the neck. No recent deep venous thrombosis. ALLERGY/IMMUNOLOGY: No immunoglobulin therapy. No immune deficiencies. BREAST: Denies current breast lumps, pain or nipple discharge. PHYSICAL EXAM: VITALS: Reviewed CONSTITUTIONAL: Well developed and in no acute distress. EYES: Conjuctivae without sclera icterus. Extraocular movements grossly intac t. HEAD, EARS, NOSE, THROAT: Moist buccal mucosa. Head is atraumatic, normocephalic. Hears conversational speech. No nasal drainage. NECK: Supple. No JV distention. No thyroidomegaly. RESPIRATORY: Non-labored respirations and equal bilateral excursions. No gross wheezes. CARDIOVASCULAR: Palpable 2+ radial pulses. ABDOMEN: Obese, non-tender. LYMPH: No neck lymphadenopathy. MUSCULOSKELETAL: No clubbing cyanosis or edema SKIN: Warm and well perfused with good skin turgor. NEUROLOGIC: Cranial nerves II through XII grossly intact. No focal or lateralizing signs. PSYCH: Appropriate affect. Alert and oriented to person, place and time. Displays appropriate insight. CLINCAL LABS: Reviewed. WBC elevated at over 18,000 down from 23,000 IMAGING: Independently reviewed. Ultrasound of the gallbladder demonstrates gallstones. Hypoechoic multilobulated area of the liver identified questionable for complex cyst versus mass. Bilateral kidneys hypoplastic. This is my independent interpretation. CT chest angiogram independent review demonstrates no saddle emboli. This is my independent interpretation. RADIOLOGY: Report reviewed CT chest demonstrating three-vessel coronary artery disease. No definitive evidence of pulmonary embolism as images limited. Ultrasound abdomen images demonstrates non-centimeter mass questionable for neoplastic process. CT abdomen and pelvis being requested per radiologist. EKG: Reviewed, abnormal prior myocardial infarction. ASSESSMENT: 1. Cholecystitis per imaging 2. Pneumonia 3. Coronary artery disease status post stent 4. History of myocardial infarction 5. Liver neoplasm 6. Sepsis PLAN: 1. Recommend cardiac risk assessment as patient presents with high surgical risk with pre-existing multiple cardiac stents 2. Alternatives to cholecystectomy includes cholecystostomy tube due to active pneumonia. Will need HIDA scan. 3. Recommend CT of the abdomen and pelvis for neoplastic liver mass per radiology recommendation. 4. Shared decision making performed with patient and family for cardiology consultation and additional imaging. Non-invasive alternatives being sought. 5. Will follow. ADVANCE DIRECTIVE: Thank you for this kind consultation. Past Medical History Past Medical History: Chest Pain / Angina, Diabetes Mellitus, Hyperlipidemia, Hypertension Additional Past Medical History / Comment(s): positive stress test on 07-11, diet controlled DM History of Any Multi-Drug Resistant Organisms: None Reported Past Surgical History: Heart Catheterization With Stent Additional Past Surgical History / Comment(s): states 7 stents total Past Anesthesia/Blood Transfusion Reactions: No Reported Reaction Date of Last Stent Placement:: July 2019 Past Psychological History: No Psychological Hx Reported Smoking Status: Never smoker Past Alcohol Use History: None Reported Past Drug Use History: None Reported - Past Family History Father Family Medical History: CVA/TIA, Diabetes Mellitus Additional Family Medical History / Comment(s): at 42 from a stroke Mother Family Medical History: No Reported History Additional Family Medical History / Comment(s): at 92 years old from old age Sister(s) Family Medical History: Coronary Artery Disease (CAD) Additional Family Medical History / Comment(s): overweight, enlarged heart, May 2018 Medications and Allergies Home Medications Medication Instructions Recorded Confirmed Type Metoprolol Succinate (ER) [Toprol 50 mg PO BID 07/14/19 04/21/23 History XL] Aspirin EC [Ecotrin Low Dose] 81 mg PO DAILY 04/21/23 04/21/23 History Dapagliflozin Propanediol [Farxiga] 5 mg PO DAILY 04/21/23 04/21/23 History Losartan [Cozaar] 50 mg PO BID 04/21/23 04/21/23 History Rosuvastatin Calcium 5 mg PO HS 04/21/23 04/21/23 History Allergies Allergy/AdvReac Type Severity Reaction Status Date / Time No Known Allergies Allergy Verified 04/21/23 21:46 Surgical - Exam Vital Signs Resp 28 H 04/21/23 16:20 Results - Labs 04/24/23 06:26 04/24/23 06:26 Abnormal Lab Results - Last 24 Hours (Table) 04/24/23 04/25/23 Range/Units 06:26 06:13 Anion Gap 13.90 H (4.00-12.00) mmol/L Est GFR (CKD-EPI) 59 L (>=60) BUN/Creatinine Ratio 9.50 L (12.00-20.00) Ratio Glucose 111 H (70-110) mg/dL POC Glucose (mg/dL) 167 H (70-110) mg/dL Calcium 8.4 L (8.7-10.3) mg/dL AST 69 H (13-35) U/L ALT 71 H (8-44) U/L Alkaline Phosphatase 173 H (41-126) U/L Albumin 2.8 L (3.8-4.9) d/dL Globulin 3.4 H (1.6-3.3) d/dL Albumin/Globulin Ratio 0.82 L (1.60-3.17) Ratio Microbiology - Last 24 Hours (Table) 04/21/23 17:30 Blood Culture Gram Stain - Preliminary Blood Blood Culture - Preliminary Beta Hemolytic Streptococcus F 04/21/23 17:25 Blood Culture Gram Stain - Preliminary Blood Blood Culture - Preliminary Beta Hemolytic Streptococcus F Diabetes panel 04/24/23 Range/Units 06:26 Sodium 139 (135-145) mmol/L Potassium 4.1 (3.5-5.5) mmol/L Chloride 102 (96-109) mmol/L Carbon Dioxide 23.1 (21.6-31.8) mmol/L BUN 9.5 (9.0-27.0) mg/dL Creatinine 1.0 (0.6-1.5) mg/dL Glucose 111 H (70-110) mg/dL Calcium 8.4 L (8.7-10.3) mg/dL AST 69 H (13-35) U/L ALT 71 H (8-44) U/L Alkaline Phosphatase 173 H (41-126) U/L Total Protein 6.2 (6.2-8.2) d/dL Albumin 2.8 L (3.8-4.9) d/dL Calcium panel 04/24/23 Range/Units 06:26 Calcium 8.4 L (8.7-10.3) mg/dL Albumin 2.8 L (3.8-4.9) d/dL Pituitary panel 04/24/23 Range/Units 06:26 Sodium 139 (135-145) mmol/L Potassium 4.1 (3.5-5.5) mmol/L Chloride 102 (96-109) mmol/L Carbon Dioxide 23.1 (21.6-31.8) mmol/L BUN 9.5 (9.0-27.0) mg/dL Creatinine 1.0 (0.6-1.5) mg/dL Glucose 111 H (70-110) mg/dL Calcium 8.4 L (8.7-10.3) mg/dL Adrenal panel 04/24/23 Range/Units 06:26 Sodium 139 (135-145) mmol/L Potassium 4.1 (3.5-5.5) mmol/L Chloride 102 (96-109) mmol/L Carbon Dioxide 23.1 (21.6-31.8) mmol/L BUN 9.5 (9.0-27.0) mg/dL Creatinine 1.0 (0.6-1.5) mg/dL Glucose 111 H (70-110) mg/dL Calcium 8.4 L (8.7-10.3) mg/dL Total Bilirubin 0.4 (0.3-1.2) mg/dL AST 69 H (13-35) U/L ALT 71 H (8-44) U/L Alkaline Phosphatase 173 H (41-126) U/L Total Protein 6.2 (6.2-8.2) d/dL Albumin 2.8 L (3.8-4.9) d/dL
[2023-04-25] MEDS: IOPAMIDOL CONTRAST (ORAL USE) VIAL PO PRN ×2 (14:36→15:37)
[2023-04-25] MEDS: DEXTROSE 5%-0.9% NACL 1,000 ML IV SCH (16:36)
--- NOTE | 2023-04-25 16:43 | P.CRDCN ---
History of Present Illness Consult date: 04/25/23 History of present illness: HISTORY OF PRESENTING ILLNESS Patient is a 77-year-old female with past medical history of coronary artery disease with prior PCI to LAD and RCA and recent PCI to diagonal artery [place] [address] Jacobs. She also has history of severe concentric LVH with a EF of 55% on echo from 2020. She presented to the hospital with the concerns of generalized fatigue and weakness to the point that she is having difficulty walking around. On admission she was found to have signs of sepsis and concerns of pneumonia. She also has concerns of possible cholecystitis and is being evaluated for possible gallbladder resection. Cardiology was consulted to evaluate for perioperative risk assessment DIAGNOSTICS EKG reveals sinus tachycardia with LVH and nonspecific intraventricular conduction delay with repolarization abnormality. Laboratory reviewed, leukocytosis W BC count 23 on admission, hemoglobin 11, creatinine 1.0. REVIEW OF SYSTEMS 14 point review of system is negative except what is mentioned above in HPI. PHYSICAL EXAMINATION Vital signs reviewed. Head: Normocephalic. Eyes: Sclerae nonicteric. Neck: Brisk carotid upstroke, no jugular venous distention. Lungs: Clear to auscultation. Heart: Regular rate and rhythm, S1-S2, no S3, no murmur or rub. Abdomen: Soft nontender, positive bowel sounds no organomegaly. Extremities: No edema, intact distal pulses. ASSESSMENT Perioperative cardiac risk assessment Right history of CAD status post PCI to LAD, diagonal artery, RCA. Recent PCI in 2020 Severe concentric LVH LVEF 55% on echocardiogram Complex liver lesion 8.8 x 7 cm Sepsis from Streptococcus Leukocytosis fever and bacteremia Pneumonia elevated pro-calcitonin Pleuritic chest pain due to pneumonia, currently resolved Type II Diabetes Obesity Hypertension Dyslipidemia PLAN Patient does not have any acute signs symptoms of ischemia. She does not have any acute signs symptoms of congestive heart failure. No arrhythmias reported on telemetry. I will discontinue her Farxiga as this medication can cause DKA if given perioperatively or during NPO status. Resume it and all appropriate postoperatively Continue other cardiac medications including aspirin, atorvastatin, metoprolol. Due to patient's history of LVH, we will obtain an echocardiogram If echocardiogram is within normal limits, with no concerns of LVOT obstruction I will provide clearance for the surgery Past Medical History Past Medical History: Chest Pain / Angina, Diabetes Mellitus, Hyperlipidemia, Hypertension Additional Past Medical History / Comment(s): positive stress test on 07-11, diet controlled DM History of Any Multi-Drug Resistant Organisms: None Reported Past Surgical History: Heart Catheterization With Stent Additional Past Surgical History / Comment(s): states 7 stents total Past Anesthesia/Blood Transfusion Reactions: No Reported Reaction Date of Last Stent Placement:: July 2019 Past Psychological History: No Psychological Hx Reported Smoking Status: Never smoker Past Alcohol Use History: None Reported Past Drug Use History: None Reported - Past Family History Father Family Medical History: CVA/TIA, Diabetes Mellitus Additional Family Medical History / Comment(s): at 42 from a stroke Mother Family Medical History: No Reported History Additional Family Medical History / Comment(s): at 92 years old from old age Sister(s) Family Medical History: Coronary Artery Disease (CAD) Additional Family Medical History / Comment(s): overweight, enlarged heart, May 2018 Medications and Allergies Home Medications Medication Instructions Recorded Confirmed Type Metoprolol Succinate (ER) [Toprol 50 mg PO BID 07/14/19 04/21/23 History XL] Aspirin EC [Ecotrin Low Dose] 81 mg PO DAILY 04/21/23 04/21/23 History Dapagliflozin Propanediol [Farxiga] 5 mg PO DAILY 04/21/23 04/21/23 History Losartan [Cozaar] 50 mg PO BID 04/21/23 04/21/23 History Rosuvastatin Calcium 5 mg PO HS 04/21/23 04/21/23 History Allergies Allergy/AdvReac Type Severity Reaction Status Date / Time No Known Allergies Allergy Verified 04/21/23 21:46 Physical Exam Vitals: Vital Signs Temp Pulse Resp BP Pulse Ox 04/25/23 14:17 99 F 79 17 135/69 96 04/25/23 07:20 98.1 F 78 18 138/76 93 L 04/25/23 01:45 98.5 F 75 18 154/90 95 04/24/23 19:17 101.7 F H 85 18 111/58 92 L Intake and Output 04/25/23 04/25/23 04/25/23 06:59 14:59 22:59 Other: # Voids 3 Results 04/24/23 06:26 04/24/23 06:26 Current Medications Generic Name Dose Route Start Last Admin Trade Name Freq PRN Reason Stop Dose Admin Acetaminophen 650 mg 04/21/23 21:34 04/24/23 19:46 Acetaminophen Tab 325 Mg Tab PO 650 mg Q4HR PRN Administration Fever and/ or Pain Albuterol/Ipratropium 3 ml 04/21/23 21:34 04/22/23 14:39 Ipratropium-Albuterol 3 Ml Neb INHALATION 3 ml RT-Q4H PRN Administration shortness of breath Alprazolam 0.5 mg 04/25/23 16:00 Alprazolam 0.5 Mg Tab PO BID PRN Anxiety Aspirin 81 mg 04/22/23 09:00 04/25/23 08:54 Aspirin 81 Mg PO 81 mg DAILY LEYDA Administration Famotidine 20 mg 04/23/23 09:00 04/25/23 08:54 Famotidine 20 Mg Tab PO 20 mg DAILY LEYDA Administration Heparin Sodium (Porcine) 5,000 unit 04/22/23 09:00 04/25/23 08:54 Heparin Sodium,Porcine 5,000 Unit/Ml 1 Ml Vial SQ 5,000 unit Q12HR LEYDA Administration Dextrose/Sodium Chloride 1,000 mls @ 75 mls/hr 04/22/23 08:00 04/25/23 16:36 Dextrose 5%-Ns Iv Soln IV 75 mls/hr .[id number] LEYDA Administration Ampicillin Sodium/Sulbactam 100 mls @ 200 mls/hr 04/26/23 00:00 Sodium 3 gm/ Sodium Chloride IVPB Q8HR [facility] Protocol Ibuprofen 400 mg 04/22/23 15:40 04/22/23 15:46 Ibuprofen 400 Mg Tab PO 400 mg Q6HR PRN Administration Pain Losartan Potassium 50 mg 04/22/23 09:00 04/25/23 08:54 Losartan 50 Mg Tab PO 50 mg BID LEYDA Administration Metoprolol Succinate 50 mg 04/22/23 09:00 04/25/23 08:54 Metoprolol Succinate (Er) 50 Mg Tab.Er.24h PO 50 mg BID LEYDA Administration Miscellaneous Information 1 each 04/21/23 21:34 Pneumonia Protocol Utilized 1 Each Misc PO ONCE PRN Per Protocol Ondansetron HCl 4 mg 04/23/23 10:09 04/24/23 15:22 Ondansetron 4 Mg Tab PO 4 mg Q8HR PRN Administration Nausea And Vomiting Intake and Output 04/25/23 04/25/23 04/25/23 06:59 14:59 22:59 Other: # Voids 3 04/24/23 06:26 04/24/23 06:26
--- NOTE | 2023-04-25 16:57 | CT ---
EXAMINATION TYPE: CT abdomen pelvis w con CT DLP: 1582.5 mGycm, Automated exposure control for dose reduction was used. DATE OF EXAM: 04/25/2023 4:19 PM COMPARISON: Abdominal ultrasound 04/24/2023. CLINICAL INDICATION:Female, 77 years old with history of Liver mass. TECHNIQUE: Axial CT of the abdomen and pelvis. Sagittal and coronal reformats were created on a [employer] workstation. Contrast used:100 CC mL of Isovue 300 with IV Contrast, (none if empty) Oral contrast used: with Oral Contrast FINDINGS: LOWER CHEST: Trace right pleural effusion. ABDOMEN LIVER: There is a heterogenous mass with multiple internal septations and gas identified within the r ight upper quadrant. The abnormality measures 8.6 x 7.3cm in the coronal plane. GALLBLADDER AND BILE DUCTS: There is gas identified within the gallbladder which may represent cholel ithiasis with surrounding edema. There is pneumobilia also identified extending through the common bi le duct and into the level of the sphincter Jaquan. PANCREAS: Unremarkable. SPLEEN: Unremarkable. ADRENAL GLANDS: Unremarkable. KIDNEYS AND URETERS: No evidence of hydronephrosis or renal calculus. The ureters are unremarkable. Bilateral renal cysts are identified. PELVIS BLADDER: Unremarkable REPRODUCTIVE: Unremarkable. ABDOMEN & PELVIS STOMACH AND BOWEL: Stomach and duodenum are unremarkable No evidence of bowel obstruction. PERITONEUM/RETROPERITONEUM: No evidence of pneumoperitoneum or free fluid. VASCULATURE: Moderate atherosclerotic calcifications are present throughout the abdominal aorta and i ts branches. No evidence of aortic aneurysm. MUSCULOSKELETAL: No acute osseous abnormalities LYMPH NODES: A few prominent perihepatic lymph nodes are identified, likely reactive. SOFT TISSUE/ABDOMINAL WALL: Unremarkable IMPRESSION: 1. Right sided liver lesion, most consistent with liver abscess. 2. Cholelithiasis with surrounding inflammatory changes. These findings correlate with recent ultraso und images with concern for cholecystitis. 3. Gas seen extending through the common bile duct to the sphincter of Shay. This may represent sphin cter of Shay dysfunction. Versus recent injury mentation.
[2023-04-25 19:28] LABS: Glucose,Whole Blood 203 mg/dL (70-110)
--- NOTE | 2023-04-25 19:59 | P.PN ---
Subjective This is a pleasant 77 years old female with past medical history of Hyperlipidemia, Hypertension, Heart Catheterization With Stent x7 Patient presents because of worsening dyspnea and generalized weakness. Her weakness and all started after she got a shot last Thursday, she got sick and she wants to see her PCP Dr. Lawton will advise her to go to the emergency room but patient decided to wait because her was sick, she was getting worse so she eventually came to the emergency room. She has cough with little chest pain with deep inspiration. She hasn't been eating well for the last 2-3 days. She denies smoking alcohol or illicit drugs. She denies GI, urinary, or neurological symptoms On admission she had a fever of 101.7. Patient is saturating 88% to 93% on room air Labs showing leukocytosis of 21.8. Rest of CBC, INR, BMP is unremarkable Enzymes mildly elevated with AST 67 and ALT 69. Viruses and detected, influenza, RSV at [facility] EKG showed sinus tachycardia and [address]-T changes and LVH. Chest x-ray: Posterior lung bases streaky opacities. Correlate for atelectasis or pneumonia Patient was started with sutures and Zithromax and admitted to the hospital 04/23/2023 Patient feels better but lots of chills. She feels weak but improving, patient stated she started getting around better. She eats well. She had occasional nausea and Zofran is added Vitals are stable Blood culture came back positive for gram-positive cocci in chains Has leukocytosis of 23,000, liver enzymes are stable and mildly elevated She remains on ceftriaxone, Zithromax and normal saline 75 mL/h 04/24/2023 Patient generally feels better with less chills and no nausea. She still feels generally weak. No respiratory symptoms no chest pain or dyspnea even with exertion. No abdominal pain but patient reports diarrhea about 2 bouts of loose stool this morning Blood culture came back positive for beta hemolytic Streptococcus, GI source is suspected. Therefore ultrasound of the abdomen showing possible cholecystitis but patient is asymptomatic. Computed tomography scan admission also showed pneumobilia most likely the source of bacteremia. Also showing liver mass and CAT scan of the abdomen is no significant 04/25/[address] of the abdomen and pelvis today for her liver lesion seen on ultrasound and showing abscess large 8.6 x 7 cm as well as acute cholecystitis and pneumobilia suspicious for sphincter of 40 dysfunction. Most likely it is the source for patient's Streptococcus bacteremia. Clinically patient looks comfortable not in distress. No abdominal pain or tenderness. Her main complaint is feeling generalized weakness. Cardiology evaluation for preop assessment is obtained and the recommended echocardiogram which is pending for now. Antibiotic was changed to Unasyn Active Medications Generic Name Dose Route Start Last Admin Trade Name Freq PRN Reason Stop Dose Admin Acetaminophen 650 mg 04/21/23 21:34 04/24/23 19:46 Acetaminophen Tab 325 Mg Tab PO 650 mg Q4HR PRN Administration Fever and/ or Pain Albuterol/Ipratropium 3 ml 04/21/23 21:34 04/22/23 14:39 Ipratropium-Albuterol 3 Ml Neb INHALATION 3 ml RT-Q4H PRN Administration shortness of breath Alprazolam 0.5 mg 04/25/23 16:00 Alprazolam 0.5 Mg Tab PO BID PRN Anxiety Aspirin 81 mg 04/22/23 09:00 04/25/23 08:54 Aspirin 81 Mg PO 81 mg DAILY LEYDA Administration Famotidine 20 mg 04/23/23 09:00 04/25/23 08:54 Famotidine 20 Mg Tab PO 20 mg DAILY LEYDA Administration Heparin Sodium (Porcine) 5,000 unit 04/22/23 09:00 04/25/23 08:54 Heparin Sodium,Porcine 5,000 Unit/Ml 1 Ml Vial SQ 5,000 unit Q12HR LEYDA Administration Dextrose/Sodium Chloride 1,000 mls @ 75 mls/hr 04/22/23 08:00 04/25/23 16:36 Dextrose 5%-Ns Iv Soln IV 75 mls/hr .[id number] LEYDA Administration Ampicillin Sodium/Sulbactam 100 mls @ 200 mls/hr 04/26/23 00:00 Sodium 3 gm/ Sodium Chloride IVPB Q8HR LEYDA Protocol Ibuprofen 400 mg 04/22/23 15:40 04/22/23 15:46 Ibuprofen 400 Mg Tab PO 400 mg Q6HR PRN Administration Pain Losartan Potassium 50 mg 04/22/23 09:00 04/25/23 08:54 Losartan 50 Mg Tab PO 50 mg BID LEYDA Administration Metoprolol Succinate 50 mg 04/22/23 09:00 04/25/23 08:54 Metoprolol Succinate (Er) 50 Mg Tab.Er.24h PO 50 mg BID LEYDA Administration Miscellaneous Information 1 each 04/21/23 21:34 Pneumonia Protocol Utilized 1 Each Misc PO ONCE PRN Per Protocol Ondansetron HCl 4 mg 04/23/23 10:09 04/24/23 15:22 Ondansetron 4 Mg Tab PO 4 mg Q8HR PRN Administration Nausea And Vomiting Objective - Vital Signs Vital signs: Vital Signs Temp 99 F 04/25/23 14:17 Pulse 79 04/25/23 14:17 Resp 17 04/25/23 14:17 BP 135/69 04/25/23 14:17 Pulse Ox 96 04/25/23 14:17 FiO2 Intake & Output 04/25/23 04/25/23 04/26/23 06:59 18:59 06:59 Other: Voiding Method Toilet # Voids 3 2 - Exam GENERAL: The patient is alert and oriented x3, not in any acute distress. Well developed, well nourished. HEENT: Pupils are round and equally reacting to light. EOMI. No scleral icterus. No conjunctival pallor. Normocephalic, atraumatic. No pharyngeal erythema. No thyromegaly. CARDIOVASCULAR: S1 and S2 present. No murmurs, rubs, or gallops. PULMONARY: Chest is clear to auscultation, no wheezing , no crackles. ABDOMEN: Soft, nontender, nondistended, normoactive bowel sounds. No palpable organomegaly. MUSCULOSKELETAL: No joint swelling or deformity. EXTREMITIES: No cyanosis, clubbing, or pedal edema. NEUROLOGICAL: Gross neurological examination did not reveal any focal deficits. SKIN: No rashes. no petechiae. - Labs CBC & Chem 7: 04/24/23 06:26 04/24/23 06:26 Labs: Abnormal Lab Results - Last 24 Hours (Table) 04/25/23 04/25/23 Range/Units 06:13 19:27 POC Glucose (mg/dL) 167 H 203 H (70-110) mg/dL Assessment and Plan Assessment: Liver abscess 8.6 x 7 cm Sepsis, fever and a leukocytosis Cholecystitis, acute Pneumobilia suspicious for sphincter of A. fib dysfunction Liver Mass Mild transaminitis Hypertension Hyperlipidemia History of coronary artery disease status post stent 7 Obesity with BMI of 31.9 Plan: Continue with preop evaluation Change antibiotics to Unasyn Surgical service team on the case for her liver abscess and cholecystitis Preoperative apprentice jockey team assessment is obtained and consulted Continue with gentle hydration Continue with oxygen Continue with pulmonary consult Follow-up culture results Labs and medication were reviewed.. Continue same treatment. Continue with symptomatic treatment. Resume home medication. Monitor labs and vitals. DVT and GI prophylaxis. Further recommendations as per clinical course of the patient DVT prophylaxis: Subcutaneous heparin GI Prophylaxis: Pepcid PT/OT: Pending Prognosis is guarded
[2023-04-26] MEDS: DEXTROSE 5%-0.9% NACL 1,000 ML IV SCH ×2 (06:33→20:36)
--- NOTE | 2023-04-26 06:36 | XR ---
EXAMINATION TYPE: XR chest 1V portable DATE OF EXAM: 04/26/2023 CLINICAL HISTORY: Difficulty breathing progress study. Follow-up pneumonia. TECHNIQUE: Single AP portable upright view of the chest is obtained. COMPARISON: Chest x-ray and CTA chest from 4 days earlier FINDINGS: Increasing bibasilar opacities is present. Upper lungs remain clear. Stable mild cardiomeg lyudmila. Underlying scoliosis is redemonstrated. IMPRESSION: Mild cardiomegaly with worsening bibasilar acute infiltrate and/or atelectasis is noted.
[2023-04-26 09:08] LABS: ALT 81 U/L (8-44); AST 59 U/L (13-35); Albumin 2.5 d/dL (3.8-4.9); Albumin/Globulin Ratio 0.81 Ratio (1.60-3.17); Alkaline Phosphatase 200 U/L (41-126); Calcium 7.9 mg/dL (8.7-10.3); Carbon Dioxide 22.4 mmol/L (21.6-31.8); Chloride 105 mmol/L (96-109); Globulin 3.1 d/dL (1.6-3.3); Glucose 133 mg/dL (70-110); Potassium 3.8 mmol/L (3.5-5.5); Sodium 136 mmol/L (135-145); Total Bilirubin 0.4 mg/dL (0.3-1.2); Total Protein 5.6 d/dL (6.2-8.2)
[2023-04-26 09:09] LABS: Basophils # (A) 0.07 X 10*3/uL (0.00-0.10); Basophils % (A) 0.4 %; Eosinophils # (A) 0.04 X 10*3/uL (0.04-0.35); Eosinophils % (A) 0.3 %; HCT 31.2 % (37.2-46.3); HGB 9.8 d/dL (12.0-15.0); Lymphocytes # (A) 2.46 X 10*3/uL (0.90-5.00); Lymphocytes % (A) 15.6 %; MCH 28.3 pg (27.0-32.0); MCHC 31.4 d/dL (32.0-37.0); MCV 90.2 FL (80.0-97.0); Mean Platelet Volume 10.2 FL (9.5-12.2); Monocytes # (A) 0.97 X 10*3/uL (0.20-1.00); Monocytes % (A) 6.1 %; NRBC Per 100 WBC 0 X 10*3/uL (0.00-0.01); Neutrophils % (A) 76.5 %; Platelet Count 512 X 10*3/uL (140-440); RBC 3.46 X 10*6/uL (4.10-5.20); RDW 14.7 % (11.5-14.5); WBC 15.81 X 10*3/uL (4.50-10.00)
[2023-04-26] MEDS: METOPROLOL SUCCINATE (ER) 50 MG TAB.ER.24H PO SCH ×2 (09:41→21:54)
[2023-04-26] MEDS: FAMOTIDINE 20 MG TAB PO SCH (09:41)
[2023-04-26] MEDS: LOSARTAN 50 MG TAB PO SCH ×2 (09:41→21:54)
[2023-04-26] MEDS: ASPIRIN 81 MG PO SCH (09:41)
[2023-04-26] MEDS: HEPARIN SODIUM,PORCINE 5,000 UNIT/ML 1 ML VIAL SQ SCH ×2 (09:41→20:35)
[2023-04-26] MEDS: AMPICILLIN-SULBACTAM 3 GM in SODIUM CHLORIDE 0.9% 100 ML IVPB SCH ×3 (09:42→21:54)
--- NOTE | 2023-04-26 13:23 | P.PN ---
Subjective Progress Note Date: 04/26/23 CHIEF COMPLAINT: Sepsis HISTORY OF PRESENT ILLNESS: The patient is a 77-year-old female admitted with se psis including pneumonia. She is sitting up in the chair. Her family just walked in the room. She denies abdominal pain. She is tolerating diet. REVIEW OF ORGAN SYSTEMS: No nausea. No chest pain. No active shortness of breath. PHYSICAL EXAM: VITALS: Reviewed CONSTITUTIONAL: Well developed and in no acute distress. EYES: Conjuctivae without sclera icterus. Extraocular movements grossly inta ct. HEAD, EARS, NOSE, THROAT: Moist buccal mucosa. Head is atraumatic, normocephalic. Hears conversational speech. No nasal drainage. RESPIRATORY: Non-labored respirations and equal bilateral excursions. No gross wheezes. CARDIOVASCULAR: Palpable 2+ radial pulses. ABDOMEN: Obese, non-tender. MUSCULOSKELETAL: No clubbing cyanosis or edema SKIN: Warm and well perfused with good skin turgor. NEUROLOGIC: Cranial nerves II through XII grossly intact. No focal or lateralizing signs. PSYCH: Appropriate affect. Alert and oriented to person, place and time. Displays appropriate insight. CLINCAL LABS: Reviewed. WBC elevated at over 18,000 down from 23,000 now 15,000. LFTs elevated. IMAGING: Independently reviewed. CT abdomen and pelvis demonstrates large cavity liver abscess including gas involving the gallbladder. This is my independent interpretation. RADIOLOGY: Report reviewed CT abdomen confirms liver abscess. ASSESSMENT: 1. Cholecystitis per imaging 2. Pneumonia 3. Coronary artery disease status post stent 4. History of myocardial infarction 5. Liver neoplasm, liver abscess 6. Sepsis PLAN: 1. She has new liver abscess found on CT scan. Recommend IR drainage. 2. Recommend HIDA scan for cholecystitis for IR drainage/cholecystostomy. 3. Appreciate cardiology consultation. 4. Will need pulmonary clearance for active pneumonia regarding surgery. 5. Findings discussed with infectious disease team 6. She is pending ECHO 7. Care plan reviewed with patient and family Objective - Vital Signs Vital signs: Vital Signs Temp 98 F 04/26/23 06:42 Pulse 70 04/26/23 06:42 Resp 19 04/26/23 06:42 BP 132/62 04/26/23 06:42 Pulse Ox 95 04/26/23 06:42 FiO2 Intake & Output 04/25/23 04/26/23 04/26/23 18:59 06:59 18:59 Other: Voiding Method Toilet # Voids 2 2 - Labs CBC & Chem 7: 04/26/23 04:59 04/26/23 04:59 Labs: Abnormal Lab Results - Last 24 Hours (Table) 04/25/23 04/26/23 04/26/23 Range/Units 19:27 04:59 04:59 WBC 15.81 H (4.50-10.00) X 10*3/uL RBC 3.46 L (4.10-5.20) X 10*6/uL Hgb 9.8 L (12.0-15.0) d/dL Hct 31.2 L (37.2-46.3) % MCHC 31.4 L (32.0-37.0) d/dL RDW 14.7 H (11.5-14.5) % Plt Count 512 H (140-440) X 10*3/uL Neutrophils # 12.10 H (1.80-7.70) X 10*3/uL BUN 6.0 L (9.0-27.0) mg/dL BUN/Creatinine Ratio 7.50 L (12.00-20.00) Ratio Glucose 133 H (70-110) mg/dL POC Glucose (mg/dL) 203 H (70-110) mg/dL Calcium 7.9 L (8.7-10.3) mg/dL AST 59 H (13-35) U/L ALT 81 H (8-44) U/L Alkaline Phosphatase 200 H (41-126) U/L C-Reactive Protein 14.40 H (0.00-0.80) mg/dL Total Protein 5.6 L (6.2-8.2) d/dL Albumin 2.5 L (3.8-4.9) d/dL Albumin/Globulin Ratio 0.81 L (1.60-3.17) Ratio
--- NOTE | 2023-04-26 13:36 | P.PN ---
Subjective Progress Note Date: 04/26/23 This is a very pleasant 77-year-old female patient with a known history of hypertension, hyperlipidemia, diabetes mellitus, and coronary artery disease with 7 stents placed, lifelong nonsmoker. She presented here to the emergency room yesterday with a 2 week history of initially vomiting for a week then fever chills weakness shortness of breath and pleuritic-type chest pain. Chest x-ray revealed some posterior lung base streaky opacities. White count 21.8. Hemoglobin 14.2. Platelets 490. Sodium 135. Potassium 5.1. Bicarb 26. BUN 19. Creatinine 0.99. Glucose 157. AST 67. ALT is 69. D-dimer 2.15. Urinalysis cloudy with 4+ glucose 1+ ketones occasional bacteria. Influenza screen negative. RSV screen negative. COVID-19 screen negative. She did have a T-max of 101.7. She is seen today in consultation in the emergency department. She is currently resting comfortably on a stretcher. Awake and alert in no acute distress. She is maintaining O2 saturations in the mid 90s on 2 L nasal cannula. She's currently afebrile. Hemodynamically stable. She does have a loose nonproductive cough. The patient is seen today 04/23/2023 in follow-up on the regular medical floor. She is currently sitting up in a chair at the bedside. Awake and alert in no acute distress. Currently afebrile. Maintaining good O2 saturation in the 90s on room air. He mechanically stable. She is feeling a bit better today compared to yesterday. Not quite back to her baseline. White count 22.4. Hemoglobin 11.7. Platelets 472. Sodium 136. Potassium 4.5. Bicarb 21. BUN 13. Creatinine 0.87. CT angiogram of the chest was suboptimal but no significant large central or lobar branch pulmonary emboli. There is large pans of probable atelectasis in bilateral bases. Blood cultures are positive for gram-positive cocci in chains. White count 23.4. Hemoglobin 11.7. Sodium 136. Potassium 4.5. Bicarb 21. BUN 13. Creatinine 0.87. Glucose 133. She is currently on ceftriaxone. Remains on bronchodilators. Heparin for DVT prophylaxis. The patient is seen today 04/24/2023 in follow-up on the regular medical floor. She is awake and alert in no acute distress. Sitting up in a chair at the bedside. She denies any worsening shortness of breath, cough or congestion. Maintaining O2 saturations in the 90s on room air. She's afebrile. Hemodynamically stable. Ultrasound of the abdomen revealed evidence of cholelithiasis with thickened gallbladder walk relate with cholecystitis. There is a complex heterogenous lesion measuring up to 8.8 cm in the liver. Indeterminate right renal lesion. Blood cultures are positive for beta- hemolytic streptococcus F. Pro calcitonin was 6.07. White count 18.8. Hemoglobin 11.1. Sodium 139. Potassium 4.1. Bicarb 23. BUN 10. Creatinine 1.0. Glucose 111. AST 69. ALT 71. Alk phos 173. She is currently on Unasyn. D5 and half-normal saline at 75 ML's per hour. The patient is seen today 04/25/2023 in follow-up on the regular medical floor. She is sitting up in a chair at the bedside. Awake and alert in no acute distress. Denies any worsening shortness of breath, cough or congestion. She is maintaining good O2 saturations in the 90s on room air. She's been afebrile. Hemodynamically stable. Glucose 167. She remains on antibiotics in the form of Unasyn. D5.45 at 75 ML's per hour. Heparin for DVT prophylaxis. She did have another fever at 101.7 last evening. The patient is seen today 04/26/2023 in follow-up on the regular medical floor. She is awake and alert in no acute distress. Sitting up in a chair. Denies any worsening shortness of breath, cough or congestion. Maintaining good O2 saturations in the mid 90s on room air. Currently afebrile. Denies any significant abdominal discomfort. Computed tomography scan of the abdomen and pelvis revealed a right-sided liver lesion, most consistent with liver abscess. Cholelithiasis with surrounding inflammatory changes. Consistent with cholecystitis. Gas seen extending to the common bile duct to the sphincter of Shay. May represent sphincter of Shay dysfunction. Plan is for HIDA scan tomorrow. Chest x-ray showing mild cardiomegaly with bibasilar infiltrates/atelectasis. White count 15.8. Hemoglobin 9.8. Platelets 512. Sodium 136. Potassium 3.8. Bicarb 22. BUN 6. Creatinine 0.8. Glucose 133. AST 59. ALT 81. Alk phos 200. C-reactive protein 14.4. She is continued on Unasyn. Objective - Vital Signs Vital signs: Vital Signs Temp 98 F 04/26/23 06:42 Pulse 70 04/26/23 06:42 Resp 19 04/26/23 06:42 BP 132/62 04/26/23 06:42 Pulse Ox 95 04/26/23 06:42 FiO2 Intake & Output 04/25/23 04/26/23 04/26/23 18:59 06:59 18:59 Other: Voiding Method Toilet # Voids 2 2 - Exam GENERAL EXAM: Alert, very pleasant 77-year-old female, on room air, comfortable in no apparent distress. HEAD: Normocephalic. EYES: Normal reaction of pupils, equal size. NOSE: Clear with pink turbinates. THROAT: No erythema or exudates. NECK: No masses, no JVD. CHEST: No chest wall deformity. LUNGS: Equal air entry with few scattered rhonchi. CVS: S1 and S2 normal with no audible murmur, regular rhythm. ABDOMEN: No hepatosplenomegaly, normal bowel sounds, no guarding or rigidity. SPINE: No scoliosis or deformity SKIN: No rashes CENTRAL NERVOUS SYSTEM: No focal deficits, tone is normal in all 4 extremities. EXTREMITIES: There is no peripheral edema. No clubbing, no cyanosis. Peripheral pulses are intact. - Labs CBC & Chem 7: 04/26/23 04:59 04/26/23 04:59 Labs: Abnormal Lab Results - Last 24 Hours (Table) 04/25/23 04/26/23 04/26/23 Range/Units 19:27 04:59 04:59 WBC 15.81 H (4.50-10.00) X 10*3/uL RBC 3.46 L (4.10-5.20) X 10*6/uL Hgb 9.8 L (12.0-15.0) d/dL Hct 31.2 L (37.2-46.3) % MCHC 31.4 L (32.0-37.0) d/dL RDW 14.7 H (11.5-14.5) % Plt Count 512 H (140-440) X 10*3/uL Neutrophils # 12.10 H (1.80-7.70) X 10*3/uL BUN 6.0 L (9.0-27.0) mg/dL BUN/Creatinine Ratio 7.50 L (12.00-20.00) Ratio Glucose 133 H (70-110) mg/dL POC Glucose (mg/dL) 203 H (70-110) mg/dL Calcium 7.9 L (8.7-10.3) mg/dL AST 59 H (13-35) U/L ALT 81 H (8-44) U/L Alkaline Phosphatase 200 H (41-126) U/L C-Reactive Protein 14.40 H (0.00-0.80) mg/dL Total Protein 5.6 L (6.2-8.2) d/dL Albumin 2.5 L (3.8-4.9) d/dL Albumin/Globulin Ratio 0.81 L (1.60-3.17) Ratio Assessment and Plan Assessment: Acute hypoxemic respiratory failure secondary to suspected community-acquired pneumonia. Pro-calcitonin 6.07. Currently on Unasyn. Recovered and on room air Bacteremia secondary to beta hemolytic streptococcus F. Currently on Unasyn. Cholecystitis and possible liver abscess may be contributing and CT suggests pneumobilia Complex liver lesion measuring 8.8 x 7.2 x 7.0 cm. Computed tomography scan of the abdomen and pelvis revealed a right-sided liver lesion, most consistent with liver abscess. Cholelithiasis with surrounding inflammatory changes. Consisten t with cholecystitis. Gas seen extending to the common bile duct to the sphincter of Shay. May represent sphincter of Shay dysfunction. Plan is for HIDA scan tomorrow. Febrile illness secondary to above Leukocytosis secondary to above Mild transaminitis secondary to above History of hypertension Hyperlipidemia Coronary disease with previous stent placement 7 Diabetes mellitus, type II Plan: The patient was seen and evaluated Computed tomography scan of the abdomen, chest x-ray, labs and medications reviewed Possible liver abscess HIDA scan in a.m. Continue Unasyn Heparin for DVT prophylaxis We will continue to follow I have personally seen and examined the patient, performed the documentation and the assessment and plan as written. Number of minutes spent on the visit: 10.
--- NOTE | 2023-04-26 20:55 | P.PN ---
Subjective This is a pleasant 77 years old female with past medical history of Hyperlipidemia, Hypertension, Heart Catheterization With Stent x7 Patient presents because of worsening dyspnea and generalized weakness. Her weakness and all started after she got a shot last Thursday, she got sick and she wants to see her PCP Dr. Lawton will advise her to go to the emergency room but patient decided to wait because her was sick, she was getting worse so she eventually came to the emergency room. She has cough with little chest pain with deep inspiration. She hasn't been eating well for the last 2-3 days. She denies smoking alcohol or illicit drugs. She denies GI, urinary, or neurological symptoms On admission she had a fever of 101.7. Patient is saturating 88% to 93% on room air Labs showing leukocytosis of 21.8. Rest of CBC, INR, BMP is unremarkable Enzymes mildly elevated with AST 67 and ALT 69. Viruses and detected, influenza, RSV at [facility] EKG showed sinus tachycardia and [address]-T changes and LVH. Chest x-ray: Posterior lung bases streaky opacities. Correlate for atelectasis or pneumonia Patient was started with sutures and Zithromax and admitted to the hospital 04/23/2023 Patient feels better but lots of chills. She feels weak but improving, patient stated she started getting around better. She eats well. She had occasional nausea and Zofran is added Vitals are stable Blood culture came back positive for gram-positive cocci in chains Has leukocytosis of 23,000, liver enzymes are stable and mildly elevated She remains on ceftriaxone, Zithromax and normal saline 75 mL/h 04/24/2023 Patient generally feels better with less chills and no nausea. She still feels generally weak. No respiratory symptoms no chest pain or dyspnea even with exertion. No abdominal pain but patient reports diarrhea about 2 bouts of loose stool this morning Blood culture came back positive for beta hemolytic Streptococcus, GI source is suspected. Therefore ultrasound of the abdomen showing possible cholecystitis but patient is asymptomatic. Computed tomography scan admission also showed pneumobilia most likely the source of bacteremia. Also showing liver mass and CAT scan of the abdomen is no significant 04/25/[address] of the abdomen and pelvis today for her liver lesion seen on ultrasound and showing abscess large 8.6 x 7 cm as well as acute cholecystitis and pneumobilia suspicious for sphincter of 40 dysfunction. Most likely it is the source for patient's Streptococcus bacteremia. Clinically patient looks comfortable not in distress. No abdominal pain or tenderness. Her main complaint is feeling generalized weakness. Cardiology evaluation for preop assessment is obtained and the recommended echocardiogram which is pending for now. Antibiotic was changed to Unasyn 04/26/2023 Patient sitting up in chair, her main complaint was generalized weakness with partial improvement. Patient denies any other complaints. She denies right upper quadrant pain. No nausea vomiting. Patient with evidence of Streptococcus bacteremia Also patient has asymmetric, minimally symptomatic acute cholecystitis and evidence of liver abscess Surgery team on the case will plan for aspiration of the abscess. Currently continued with Unasyn and normal saline at 75 mL/h Plan of care and problem is discussed with the patient details and she verbalized understanding and acceptance to the management plan Objective - Vital Signs Vital signs: Vital Signs Temp 98.7 F 04/26/23 13:18 Pulse 84 04/26/23 13:18 Resp 19 04/26/23 13:18 BP 127/62 04/26/23 13:18 Pulse Ox 96 04/26/23 13:18 FiO2 Intake & Output 04/26/23 04/26/23 04/27/23 06:59 18:59 06:59 Other: Voiding Method Toilet # Voids 2 2 - Exam GENERAL: The patient is alert and oriented x3, not in any acute distress. Well developed, well nourished. HEENT: Pupils are round and equally reacting to light. EOMI. No scleral icterus. No conjunctival pallor. Normocephalic, atraumatic. No pharyngeal erythema. No thyromegaly. CARDIOVASCULAR: S1 and S2 present. No murmurs, rubs, or gallops. PULMONARY: Chest is clear to auscultation, no wheezing , no crackles. ABDOMEN: Soft, nontender, nondistended, normoactive bowel sounds. No palpable organomegaly. MUSCULOSKELETAL: No joint swelling or deformity. EXTREMITIES: No cyanosis, clubbing, or pedal edema. NEUROLOGICAL: Gross neurological examination did not reveal any focal deficits. SKIN: No rashes. no petechiae. - Labs CBC & Chem 7: 04/26/23 04:59 04/26/23 04:59 Labs: Abnormal Lab Results - Last 24 Hours (Table) 04/25/23 04/26/23 04/26/23 Range/Units 19:27 04:59 04:59 WBC 15.81 H (4.50-10.00) X 10*3/uL RBC 3.46 L (4.10-5.20) X 10*6/uL Hgb 9.8 L (12.0-15.0) d/dL Hct 31.2 L (37.2-46.3) % MCHC 31.4 L (32.0-37.0) d/dL RDW 14.7 H (11.5-14.5) % Plt Count 512 H (140-440) X 10*3/uL Neutrophils # 12.10 H (1.80-7.70) X 10*3/uL BUN 6.0 L (9.0-27.0) mg/dL BUN/Creatinine Ratio 7.50 L (12.00-20.00) Ratio Glucose 133 H (70-110) mg/dL POC Glucose (mg/dL) 203 H (70-110) mg/dL Calcium 7.9 L (8.7-10.3) mg/dL AST 59 H (13-35) U/L ALT 81 H (8-44) U/L Alkaline Phosphatase 200 H (41-126) U/L C-Reactive Protein 14.40 H (0.00-0.80) mg/dL Total Protein 5.6 L (6.2-8.2) d/dL Albumin 2.5 L (3.8-4.9) d/dL Albumin/Globulin Ratio 0.81 L (1.60-3.17) Ratio Microbiology - Last 24 Hours (Table) 04/21/23 17:30 Blood Culture Gram Stain - Final Blood Blood Culture - Final Beta Hemolytic Streptococcus F 04/21/23 17:25 Blood Culture Gram Stain - Final Blood Blood Culture - Final Beta Hemolytic Streptococcus F Assessment and Plan Assessment: Liver abscess 8.6 x 7 cm Sepsis, fever and a leukocytosis Cholecystitis, acute Pneumobilia suspicious for sphincter of A. fib dysfunction Liver Mass Mild transaminitis Hypertension Hyperlipidemia History of coronary artery disease status post stent 7 Obesity with BMI of 31.9 Plan: Continue with preop evaluation Change antibiotics to Unasyn Surgical service team on the case for her liver abscess and cholecystitis Preoperative antitank assault gunner team assessment is obtained and consulted Continue with gentle hydration Continue with oxygen Continue with pulmonary consult Follow-up culture results Labs and medication were reviewed.. Continue same treatment. Continue with symptomatic treatment. Resume home medication. Monitor labs and vitals. DVT and GI prophylaxis. Further recommendations as per clinical course of the patient DVT prophylaxis: Subcutaneous heparin GI Prophylaxis: Pepcid PT/OT: Pending Prognosis is guarded
[2023-04-27] MEDS: AMPICILLIN-SULBACTAM 3 GM in SODIUM CHLORIDE 0.9% 100 ML IVPB SCH ×4 (04:15→21:05)
[2023-04-27 08:50] LABS: Basophils # (A) 0.05 X 10*3/uL (0.00-0.10); Basophils % (A) 0.4 %; Eosinophils # (A) 0.04 X 10*3/uL (0.04-0.35); Eosinophils % (A) 0.3 %; HGB 9.6 d/dL (12.0-15.0); Lymphocytes # (A) 2.07 X 10*3/uL (0.90-5.00); Lymphocytes % (A) 15.5 %; MCH 27.8 pg (27.0-32.0); MCV 89.9 FL (80.0-97.0); Mean Platelet Volume 9.9 FL (9.5-12.2); Monocytes # (A) 0.86 X 10*3/uL (0.20-1.00); Monocytes % (A) 6.5 %; NRBC Per 100 WBC 0 X 10*3/uL (0.00-0.01); Neutrophils # (A) 10.15 X 10*3/uL (1.80-7.70); Neutrophils % (A) 76.2 %; Platelet Count 498 X 10*3/uL (140-440); RBC 3.45 X 10*6/uL (4.10-5.20); RDW 14.6 % (11.5-14.5); WBC 13.32 X 10*3/uL (4.50-10.00)
[2023-04-27 09:23] LABS: ALT 88 U/L (8-44); AST 70 U/L (13-35); Albumin 2.5 d/dL (3.8-4.9); Albumin/Globulin Ratio 0.78 Ratio (1.60-3.17); Alkaline Phosphatase 218 U/L (41-126); Bilirubin, Conjugated 0.26 mg/dL (0.20-0.40); Bilirubin,Unconjugated 0.24 mg/dL (0.20-1.00); Blood Urea Nitrogen 5.6 mg/dL (9.0-27.0); Calcium 7.8 mg/dL (8.7-10.3); Carbon Dioxide 22.2 mmol/L (21.6-31.8); Chloride 105 mmol/L (96-109); Globulin 3.2 d/dL (1.6-3.3); Glucose 118 mg/dL (70-110); Potassium 3.7 mmol/L (3.5-5.5); Sodium 137 mmol/L (135-145); Total Bilirubin 0.5 mg/dL (0.3-1.2); Total Protein 5.7 d/dL (6.2-8.2)
[2023-04-27] MEDS: HEPARIN SODIUM,PORCINE 5,000 UNIT/ML 1 ML VIAL SQ SCH (10:21)
[2023-04-27] MEDS: ASPIRIN 81 MG PO SCH (10:22)
[2023-04-27] MEDS: FAMOTIDINE 20 MG TAB PO SCH (10:47)
--- NOTE | 2023-04-27 10:55 | NM ---
Nuclear medicine hepatobiliary scan. HISTORY: Pain. DOSAGE: The patient received 8 0z Ensure plus and 5.1 mCi of Technetium 99m Choletec. FINDINGS: There is a large photopenic defect involving the right lobe of liver corresponding to the C T mass/abscess. The gallbladder is none seen at 2 hours.. There is biliary to bowel clearance by 20 minutes. Ejection fraction could not be obtained due to lack of gallbladder filling of radiotracer. IMPRESSION: 1. Correlate for cholecystitis.
[2023-04-27] MEDS: DEXTROSE 5%-0.9% NACL 1,000 ML IV SCH ×2 (12:12→21:06)
[2023-04-27] MEDS: METOPROLOL SUCCINATE (ER) 50 MG TAB.ER.24H PO SCH ×2 (13:13→21:05)
[2023-04-27] MEDS: LOSARTAN 50 MG TAB PO SCH ×2 (13:13→21:05)
--- NOTE | 2023-04-27 13:50 | P.PN ---
Subjective Progress Note Date: 04/27/23 CHIEF COMPLAINT: Sepsis HISTORY OF PRESENT ILLNESS: The patient is a 77-year-old female admitted with sepsis including pneumonia. Patient denies any abdominal pain. IR service cannot place and draining for liver abscess due to patient being on aspirin. HIDA scan result reports correlate for cholecystitis. Denies any nausea or vomiting. Afebrile. WBC 13.3 hgb 9.6 total bili 0.5 AST 70 ALT 88 alk phos 218 PHYSICAL EXAM: VITAL SIGNS: Reviewed GENERAL: Well-developed in no acute distress. HEENT: No sclera icterus. Extraocular movements grossly intact. Moist buccal mucosa. Head is atraumatic, normocephalic. Hears conversational speech. No nasal drainage. NECK: Supple without lymphadenopathy. CHEST: Non-labored respirations and equal bilateral excursions. CARDIOVASCULAR: Palpable 2+ radial pulses. ABDOMEN: Soft. Nondistended. Nontender. MUSCULOSKELETAL: No clubbing or cyanosis. NEUROLOGIC: No focal or lateralizing signs. Cranial nerves II through XII grossly intact. PSYCH: Appropriate affect. Alert and oriented to person, place and time. SKIN: Well perfused. Good skin turgor. ASSESSMENT: 1. Cholecystitis per imaging 2. Pneumonia 3. Coronary artery disease status post stent 4. History of myocardial infarction 5. Liver neoplasm, liver abscess 6. Sepsis PLAN: -HIDA scan result reports correlate for cholecystitis. Interventional radiology consulted for cholecystostomy tube placement -Patient awaiting drain for liver abscess per IR service. -Aspirin currently on hold for drain placement for cholecystitis and liver abscess -Continue the low-fat diet Physician Demand Planning Manager note has been reviewed by physician. Signing provider agrees with the documented findings, assessment, and plan of care. Objective - Vital Signs Vital signs: Vital Signs Temp 98.5 F 04/27/23 07:13 Pulse 78 04/27/23 07:13 Resp 18 04/27/23 08:00 BP 164/80 04/27/23 07:13 Pulse Ox 92 L 04/27/23 07:13 FiO2 Intake & Output 04/26/23 04/27/23 04/27/23 18:59 06:59 18:59 Other: Voiding Method Toilet Toilet # Voids 2 1 - Labs CBC & Chem 7: 04/27/23 05:41 04/27/23 05:41 Labs: Abnormal Lab Results - Last 24 Hours (Table) 04/27/23 04/27/23 Range/Units 05:41 05:41 WBC 13.32 H (4.50-10.00) X 10*3/uL RBC 3.45 L (4.10-5.20) X 10*6/uL Hgb 9.6 L (12.0-15.0) d/dL Hct 31.0 L (37.2-46.3) % MCHC 31.0 L (32.0-37.0) d/dL RDW 14.6 H (11.5-14.5) % Plt Count 498 H (140-440) X 10*3/uL Neutrophils # 10.15 H (1.80-7.70) X 10*3/uL BUN 5.6 L (9.0-27.0) mg/dL BUN/Creatinine Ratio 8.00 L (12.00-20.00) Ratio Glucose 118 H (70-110) mg/dL Calcium 7.8 L (8.7-10.3) mg/dL AST 70 H (13-35) U/L ALT 88 H (8-44) U/L Alkaline Phosphatase 218 H (41-126) U/L Total Protein 5.7 L (6.2-8.2) d/dL Albumin 2.5 L (3.8-4.9) d/dL Albumin/Globulin Ratio 0.78 L (1.60-3.17) Ratio Microbiology - Last 24 Hours (Table) 04/21/23 17:30 Blood Culture Gram Stain - Final Blood Blood Culture - Final Beta Hemolytic Streptococcus F 04/21/23 17:25 Blood Culture Gram Stain - Final Blood Blood Culture - Final Beta Hemolytic Streptococcus F
--- NOTE | 2023-04-27 14:35 | P.PN ---
Subjective Progress Note Date: 04/27/23 This is a very pleasant 77-year-old female patient with a known history of hypertension, hyperlipidemia, diabetes mellitus, and coronary artery disease with 7 stents placed, lifelong nonsmoker. She presented here to the emergency room yesterday with a 2 week history of initially vomiting for a week then fever chills weakness shortness of breath and pleuritic-type chest pain. Chest x-ray revealed some posterior lung base streaky opacities. White count 21.8. Hemoglobin 14.2. Platelets 490. Sodium 135. Potassium 5.1. Bicarb 26. BUN 19. Creatinine 0.99. Glucose 157. AST 67. ALT is 69. D-dimer 2.15. Urinalysis cloudy with 4+ glucose 1+ ketones occasional bacteria. Influenza screen negative. RSV screen negative. COVID-19 screen negative. She did have a T-max of 101.7. She is seen today in consultation in the emergency department. She is currently resting comfortably on a stretcher. Awake and alert in no acute distress. She is maintaining O2 saturations in the mid 90s on 2 L nasal cannula. She's currently afebrile. Hemodynamically stable. She does have a loose nonproductive cough. The patient is seen today 04/23/2023 in follow-up on the regular medical floor. She is currently sitting up in a chair at the bedside. Awake and alert in no acute distress. Currently afebrile. Maintaining good O2 saturation in the 90s on room air. He mechanically stable. She is feeling a bit better today compared to yesterday. Not quite back to her baseline. White count 22.4. Hemoglobin 11.7. Platelets 472. Sodium 136. Potassium 4.5. Bicarb 21. BUN 13. Creatinine 0.87. CT angiogram of the chest was suboptimal but no significant large central or lobar branch pulmonary emboli. There is large pans of probable atelectasis in bilateral bases. Blood cultures are positive for gram-positive cocci in chains. White count 23.4. Hemoglobin 11.7. Sodium 136. Potassium 4.5. Bicarb 21. BUN 13. Creatinine 0.87. Glucose 133. She is currently on ceftriaxone. Remains on bronchodilators. Heparin for DVT prophylaxis. The patient is seen today 04/24/2023 in follow-up on the regular medical floor. She is awake and alert in no acute distress. Sitting up in a chair at the bedside. She denies any worsening shortness of breath, cough or congestion. Maintaining O2 saturations in the 90s on room air. She's afebrile. Hemodynamically stable. Ultrasound of the abdomen revealed evidence of cholelithiasis with thickened gallbladder walk relate with cholecystitis. There is a complex heterogenous lesion measuring up to 8.8 cm in the liver. Indeterminate right renal lesion. Blood cultures are positive for beta- hemolytic streptococcus F. Pro calcitonin was 6.07. White count 18.8. Hemoglobin 11.1. Sodium 139. Potassium 4.1. Bicarb 23. BUN 10. Creatinine 1.0. Glucose 111. AST 69. ALT 71. Alk phos 173. She is currently on Unasyn. D5 and half-normal saline at 75 ML's per hour. The patient is seen today 04/25/2023 in follow-up on the regular medical floor. She is sitting up in a chair at the bedside. Awake and alert in no acute distress. Denies any worsening shortness of breath, cough or congestion. She is maintaining good O2 saturations in the 90s on room air. She's been afebrile. Hemodynamically stable. Glucose 167. She remains on antibiotics in the form of Unasyn. D5.45 at 75 ML's per hour. Heparin for DVT prophylaxis. She did have another fever at 101.7 last evening. The patient is seen today 04/26/2023 in follow-up on the regular medical floor. She is awake and alert in no acute distress. Sitting up in a chair. Denies any worsening shortness of breath, cough or congestion. Maintaining good O2 saturations in the mid 90s on room air. Currently afebrile. Denies any significant abdominal discomfort. Computed tomography scan of the abdomen and pelvis revealed a right-sided liver lesion, most consistent with liver abscess. Cholelithiasis with surrounding inflammatory changes. Consistent with cholecystitis. Gas seen extending to the common bile duct to the sphincter of Shay. May represent sphincter of Shay dysfunction. Plan is for HIDA scan tomorrow. Chest x-ray showing mild cardiomegaly with bibasilar infiltrates/atelectasis. White count 15.8. Hemoglobin 9.8. Platelets 512. Sodium 136. Potassium 3.8. Bicarb 22. BUN 6. Creatinine 0.8. Glucose 133. AST 59. ALT 81. Alk phos 200. C-reactive protein 14.4. She is continued on Unasyn. The patient is seen today 04/27/2023 in follow-up on the regular medical floor. She is awake and alert in no acute distress. She did go down for a hepa tobiliary scan earlier this morning which did reveal a large photopenic defect involving the right lobe of the liver corresponding to CT mass/abscess. There is cholecystitis. Interventional radiology has been consulted for both a liver abscess drain and a Elizabeth cystostomy tube placement. Aspirin remains on hold. Blood cultures are positive for beta-hemolytic streptococcus F. White count 13.3. Hemoglobin 9.6. Platelets 498. Sodium 137. Potassium 3.7. Vicodin 22. BUN 6. Creatinine 0.7. Glucose 118. AST 70. ALT 88. Alk phos 218. She remains on Unasyn. Heparin for DVT prophylaxis. Bronchodilators as needed. Objective - Vital Signs Vital signs: Vital Signs Temp 98.5 F 04/27/23 07:13 Pulse 78 04/27/23 07:13 Resp 18 04/27/23 08:00 BP 164/80 04/27/23 07:13 Pulse Ox 92 L 04/27/23 07:13 FiO2 Intake & Output 04/26/23 04/27/23 04/27/23 18:59 06:59 18:59 Other: Voiding Method Toilet Toilet # Voids 2 1 - Exam GENERAL EXAM: Alert, pleasant 77-year-old female, on room air, fairly comfortable in no apparent distress. HEAD: Normocephalic. EYES: Normal reaction of pupils, equal size. NOSE: Clear with pink turbinates. THROAT: No erythema or exudates. NECK: No masses, no JVD. CHEST: No chest wall deformity. LUNGS: Equal air entry with few scattered rhonchi. CVS: S1 and S2 normal with no audible murmur, regular rhythm. ABDOMEN: No hepatosplenomegaly, normal bowel sounds, no guarding or rigidity. SPINE: No scoliosis or deformity SKIN: No rashes CENTRAL NERVOUS SYSTEM: No focal deficits, tone is normal in all 4 extremities. EXTREMITIES: There is no peripheral edema. No clubbing, no cyanosis. Peripheral pulses are intact. - Labs CBC & Chem 7: 04/27/23 05:41 04/27/23 05:41 Labs: Abnormal Lab Results - Last 24 Hours (Table) 04/27/23 04/27/23 Range/Units 05:41 05:41 WBC 13.32 H (4.50-10.00) X 10*3/uL RBC 3.45 L (4.10-5.20) X 10*6/uL Hgb 9.6 L (12.0-15.0) d/dL Hct 31.0 L (37.2-46.3) % MCHC 31.0 L (32.0-37.0) d/dL RDW 14.6 H (11.5-14.5) % Plt Count 498 H (140-440) X 10*3/uL Neutrophils # 10.15 H (1.80-7.70) X 10*3/uL BUN 5.6 L (9.0-27.0) mg/dL BUN/Creatinine Ratio 8.00 L (12.00-20.00) Ratio Glucose 118 H (70-110) mg/dL Calcium 7.8 L (8.7-10.3) mg/dL AST 70 H (13-35) U/L ALT 88 H (8-44) U/L Alkaline Phosphatase 218 H (41-126) U/L Total Protein 5.7 L (6.2-8.2) d/dL Albumin 2.5 L (3.8-4.9) d/dL Albumin/Globulin Ratio 0.78 L (1.60-3.17) Ratio Microbiology - Last 24 Hours (Table) 04/21/23 17:30 Blood Culture Gram Stain - Final Blood Blood Culture - Final Beta Hemolytic Streptococcus F 04/21/23 17:25 Blood Culture Gram Stain - Final Blood Blood Culture - Final Beta Hemolytic Streptococcus F Assessment and Plan Assessment: Acute hypoxemic respiratory failure secondary to suspected community-acquired pneumonia. Pro-calcitonin 6.07. Currently on Unasyn. Recovered and on room air Bacteremia secondary to beta hemolytic streptococcus F. Currently on Unasyn. Cholecystitis and liver abscess may be contributing and CT suggests pneumobilia Complex liver lesion measuring 8.8 x 7.2 x 7.0 cm. Computed tomography scan of the abdomen and pelvis revealed a right-sided liver lesion, most consistent with liver abscess. Cholelithiasis with surrounding inflammatory changes. Consistent with cholecystitis. Gas seen extending to the common bile duct to the sphincter of Shay. May represent sphincter of Shay dysfunction. HIDA scan shows a large photopenic defect involving the right lobe of the liver corresponding to the CT mass/abscess. Positive for cholecystitis. Febrile illness secondary to above Leukocytosis secondary to above Mild transaminitis secondary to above History of hypertension Hyperlipidemia Coronary disease with previous stent placement 7 Diabetes mellitus, type II Plan: The patient was seen and evaluated HIDA scan, labs and medications reviewed Plan is for interventional radiology for drainage tube for the liver abscess Plan is for interventional radiology for cholecystostomy tube Continue Unasyn We will continue to follow I have personally seen and examined the patient, performed the documentation and the assessment and plan as written. Number of minutes spent on the visit: 10.
--- NOTE | 2023-04-27 16:08 | CA ---
Transthoracic Echo Report Name: Oriana Garrett Age: 77 Gender: F : 1945 Exam Date: 04/27/2023 11:22 Exam Location: [place] [facility] Ht (in): 63 Wt (lb): 180 Ordering Physician: Abdi Chandler MD ([id number]) Attending/Referring Phys: Roller Setter Ho Smith Procedure CPT: Indications: perioperative cardiac assessment Cardiac Hx: Technical Quality: Technically difficult study Contrast 1: Agitated Saline Total Dose (mL): 5 Contrast 2: Total Dose (mL): MEASUREMENTS (Male / Female) Normal Values 2D ECHO LV Diastolic Diameter PLAX 4.3 cm 4.2 - 5.9 / 3.9 - 5.3 cm LV Systolic Diameter PLAX 3.0 cm IVS Diastolic Thickness 1.6 cm 0.6 - 1.0 / 0.6 - 0.9 cm LVPW Diastolic Thickness 1.3 cm 0.6 - 1.0 / 0.6 - 0.9 cm LV Relative Wall Thickness 0.7 RV Internal Dim ED PLAX 2.7 cm LVOT Diameter 2.0 cm Aortic Root Diameter 2.7 cm LA Systolic Diameter LX 2.7 cm 3.0 - 4.0 / 2.7 - 3.8 cm LV Diastolic Volume MOD BP 48.4 cm??? 67 - 155 / 56 - 104 cm??? LV Systolic Volume MOD BP 19.7 cm??? 22 - 58 / 19 - 49 cm??? LV Ejection Fraction MOD BP 59.2 % >= 55 % LV Cardiac Index MOD BP 1451.8 cm???/min???m??? LV Diastolic Volume MOD 4C 50.9 cm??? LV Systolic Volume MOD 4C 19.8 cm??? LV Ejection Fraction MOD 4C 61.1 % LV Cardiac Index MOD 4C 1573.9 cm???/min???m??? LV Diastolic Length 4C 6.6 cm LV Systolic Length 4C 5.9 cm LV Diastolic Volume MOD 2C 42.4 cm??? LV Systolic Volume MOD 2C 18.5 cm??? LV Ejection Fraction MOD 2C 56.3 % LV Cardiac Index MOD 2C 1208.7 cm???/min???m??? LV Diastolic Length 2C 6.0 cm LV Systolic Length 2C 5.5 cm LA Volume 59.9 cm??? 18 - 58 / 22 - 52 cm??? LA Volume Index 31.0 cm???/m??? 16 - 28 cm???/m??? Ascending Aorta Diameter 2.8 cm DOPPLER AV Peak Velocity 150.1 cm/s AV Peak Gradient 9.0 mmHg LVOT Peak Velocity 136.0 cm/s LVOT Peak Gradient 7.4 mmHg LVOT Velocity Time Integral 31.1 cm LVOT Stroke Volume 100.1 cm??? LVOT Stroke Volume Index 54.1 ml/m??? LVOT Cardiac Index 5066.2 cm???/min???m??? AV Area Cont Eq pk 2.9 cm??? MV Peak Velocity 97.2 cm/s MV Peak Gradient 3.8 mmHg MV Mean Velocity 45.5 cm/s MV Mean Gradient 1.1 mmHg MV Velocity Time Integral 26.5 cm MR Peak Velocity 336.9 cm/s MR Peak Gradient 45.4 mmHg Mitral E Point Velocity 91.7 cm/s Mitral A Point Velocity 82.5 cm/s Mitral E to A Ratio 1.1 MV Deceleration Time 181.1 ms MV E' Velocity 7.8 cm/s Mitral E to MV E' Ratio 11.7 TR Peak Velocity 246.8 cm/s TR Peak Gradient 24.4 mmHg Right Ventricular Systolic Press 29.4 mmHg FINDINGS Left Ventricle Moderately increased septal wall thickness. Mildly increased posterior wall thickness. Normal LV size. Right Ventricle Normal right ventricular size. Right Atrium Normal right atrial size. Left Atrium Mildly increased left atrial volume. LA volume index= 32ml/m2 Mitral Valve Structurally normal mitral valve. Trace MR. Aortic Valve Trileaflet aortic valve. Tricuspid Valve Structurally normal tricuspid valve. Trace TR. Pulmonic Valve Pulmonic valve not well visualized. Mild PI. Pericardium Not visualized well. Aorta Normal size aortic root and proximal ascending aorta. CONCLUSIONS LVH with preserved systolic function Previewed by: Dr. Tae Orantes MD (Electronically Signed) Final Date: 27 April 2023 16:07
[2023-04-28] MEDS: AMPICILLIN-SULBACTAM 3 GM in SODIUM CHLORIDE 0.9% 100 ML IVPB SCH ×4 (04:25→20:16)
[2023-04-28] MEDS: LOSARTAN 50 MG TAB PO SCH ×2 (09:54→20:15)
[2023-04-28] MEDS: METOPROLOL SUCCINATE (ER) 50 MG TAB.ER.24H PO SCH ×2 (09:54→20:15)
[2023-04-28] MEDS: FAMOTIDINE 20 MG TAB PO SCH (09:54)
[2023-04-28] MEDS: ALPRAZolam 0.5 MG TAB PO PRN (10:11)
--- NOTE | 2023-04-28 10:35 | P.CON ---
Consult Note - . Consult date: 04/28/23 Assessment/Plan:: will proceed with hepatic absess drain placement. GB not distended and no safe access route. Patient not candidate for percutaneous cholecystostomy tube.
--- NOTE | 2023-04-28 10:42 | P.PN ---
Subjective This is a pleasant 77 years old female with past medical history of Hyperlipidemia, Hypertension, Heart Catheterization With Stent x7 Patient presents because of worsening dyspnea and generalized weakness. Her weakness and all started after she got a shot last Thursday, she got sick and she wants to see her PCP Dr. Lawton will advise her to go to the emergency room but patient decided to wait because her was sick, she was getting worse so she eventually came to the emergency room. She has cough with little chest pain with deep inspiration. She hasn't been eating well for the last 2-3 days. She denies smoking alcohol or illicit drugs. She denies GI, urinary, or neurological symptoms On admission she had a fever of 101.7. Patient is saturating 88% to 93% on room air Labs showing leukocytosis of 21.8. Rest of CBC, INR, BMP is unremarkable Enzymes mildly elevated with AST 67 and ALT 69. Viruses and detected, influenza, RSV at [facility] EKG showed sinus tachycardia and [address]-T changes and LVH. Chest x-ray: Posterior lung bases streaky opacities. Correlate for atelectasis or pneumonia Patient was started with sutures and Zithromax and admitted to the hospital 04/23/2023 Patient feels better but lots of chills. She feels weak but improving, patient stated she started getting around better. She eats well. She had occasional nausea and Zofran is added Vitals are stable Blood culture came back positive for gram-positive cocci in chains Has leukocytosis of 23,000, liver enzymes are stable and mildly elevated She remains on ceftriaxone, Zithromax and normal saline 75 mL/h 04/24/2023 Patient generally feels better with less chills and no nausea. She still feels generally weak. No respiratory symptoms no chest pain or dyspnea even with exertion. No abdominal pain but patient reports diarrhea about 2 bouts of loose stool this morning Blood culture came back positive for beta hemolytic Streptococcus, GI source is suspected. Therefore ultrasound of the abdomen showing possible cholecystitis but patient is asymptomatic. Computed tomography scan admission also showed pneumobilia most likely the source of bacteremia. Also showing liver mass and CAT scan of the abdomen is no significant 04/25/[address] of the abdomen and pelvis today for her liver lesion seen on ultrasound and showing abscess large 8.6 x 7 cm as well as acute cholecystitis and pneumobilia suspicious for sphincter of 40 dysfunction. Most likely it is the source for patient's Streptococcus bacteremia. Clinically patient looks comfortable not in distress. No abdominal pain or tenderness. Her main complaint is feeling generalized weakness. Cardiology evaluation for preop assessment is obtained and the recommended echocardiogram which is pending for now. Antibiotic was changed to Unasyn 04/26/2023 Patient sitting up in chair, her main complaint was generalized weakness with partial improvement. Patient denies any other complaints. She denies right upper quadrant pain. No nausea vomiting. Patient with evidence of Streptococcus bacteremia Also patient has asymmetric, minimally symptomatic acute cholecystitis and evidence of liver abscess Surgery team on the case will plan for aspiration of the abscess. Currently continued with Unasyn and normal saline at 75 mL/h Plan of care and problem is discussed with the patient details and she verbalized understanding and acceptance to the management plan 04/27/2023 She still feels tired and exhausted. No significant right upper quadrant pain and tenderness. Surgery team recommended drainage of the abscess by IR team, however they could not do it because patient already took aspirin yesterday. Today patient did not take aspirin and he'll follow-up with surgery team for further recommendation regarding her liver abscess and cholecystitis. In the meantime she remains on Unasyn normal sinus 75 mL per Objective - Vital Signs Vital signs: Vital Signs Temp 98.5 F 04/27/23 07:13 Pulse 78 04/27/23 07:13 Resp 18 04/27/23 08:00 BP 164/80 04/27/23 07:13 Pulse Ox 92 L 04/27/23 07:13 FiO2 Intake & Output 04/26/23 04/27/23 04/27/23 18:59 06:59 18:59 Intake Total 200 Balance 200 Intake: Oral 200 Other: Voiding Method Toilet Toilet # Voids 2 1 - Exam GENERAL: The patient is alert and oriented x3, not in any acute distress. Well developed, well nourished. HEENT: Pupils are round and equally reacting to light. EOMI. No scleral icterus. No conjunctival pallor. Normocephalic, atraumatic. No pharyngeal erythema. No th yromegaly. CARDIOVASCULAR: S1 and S2 present. No murmurs, rubs, or gallops. PULMONARY: Chest is clear to auscultation, no wheezing , no crackles. ABDOMEN: Soft, nontender, nondistended, normoactive bowel sounds. No palpable organomegaly. MUSCULOSKELETAL: No joint swelling or deformity. EXTREMITIES: No cyanosis, clubbing, or pedal edema. NEUROLOGICAL: Gross neurological examination did not reveal any focal deficits. SKIN: No rashes. no petechiae. - Labs CBC & Chem 7: 04/27/23 05:41 04/27/23 05:41 Labs: Abnormal Lab Results - Last 24 Hours (Table) 04/27/23 04/27/23 Range/Units 05:41 05:41 WBC 13.32 H (4.50-10.00) X 10*3/uL RBC 3.45 L (4.10-5.20) X 10*6/uL Hgb 9.6 L (12.0-15.0) d/dL Hct 31.0 L (37.2-46.3) % MCHC 31.0 L (32.0-37.0) d/dL RDW 14.6 H (11.5-14.5) % Plt Count 498 H (140-440) X 10*3/uL Neutrophils # 10.15 H (1.80-7.70) X 10*3/uL BUN 5.6 L (9.0-27.0) mg/dL BUN/Creatinine Ratio 8.00 L (12.00-20.00) Ratio Glucose 118 H (70-110) mg/dL Calcium 7.8 L (8.7-10.3) mg/dL AST 70 H (13-35) U/L ALT 88 H (8-44) U/L Alkaline Phosphatase 218 H (41-126) U/L Total Protein 5.7 L (6.2-8.2) d/dL Albumin 2.5 L (3.8-4.9) d/dL Albumin/Globulin Ratio 0.78 L (1.60-3.17) Ratio Microbiology - Last 24 Hours (Table) 04/21/23 17:30 Blood Culture Gram Stain - Final Blood Blood Culture - Final Beta Hemolytic Streptococcus F 04/21/23 17:25 Blood Culture Gram Stain - Final Blood Blood Culture - Final Beta Hemolytic Streptococcus F Assessment and Plan Assessment: Liver abscess 8.6 x 7 cm Sepsis, fever and a leukocytosis Cholecystitis, acute Pneumobilia suspicious for sphincter of A. fib dysfunction Liver Mass Mild transaminitis Hypertension Hyperlipidemia History of coronary artery disease status post stent 7 Obesity with BMI of 31.9 Plan: Continue with preop evaluation Change antibiotics to Unasyn Surgical service team on the case for her liver abscess and cholecystitis Preoperative manager completions team assessment is obtained and consulted Continue with gentle hydration Continue with oxygen Continue with pulmonary consult Follow-up culture results Labs and medication were reviewed.. Continue same treatment. Continue with symptomatic treatment. Resume home medication. Monitor labs and vitals. DVT and GI prophylaxis. Further recommendations as per clinical course of the patient DVT prophylaxis: Subcutaneous heparin GI Prophylaxis: Pepcid PT/OT: Pending Prognosis is guarded
[2023-04-28 11:38] VITALS: BMI 31.8
[2023-04-28] MEDS: HYDROmorphone 0.5 MG/0.5 ML SYRINGE IVP STA ×2 (11:39→12:04)
--- NOTE | 2023-04-28 12:30 | P.PN ---
Subjective Progress Note Date: 04/26/23 Principal diagnosis: Bacteremia possible cholecystitis Patient is a 77-year-old female with a past medical history significant for diabetes mellitus hypertension hyperlipidemia angina presented to the hospital for evaluation of increasing shortness of breath, patient no ticed to be septic with initial concern for possible pneumonia CT angiogram did not show any consolidation and a blood cultures positive for group F strep. On today's evaluation that is 04/26/2023, the patient is afebrile the patient is breathing comfortably on room air , the patient denies chest pain and no significant cough, patient denies abdominal pain and no nausea/vomiting or diarrhea Patient white count 15.81, creatinine is 0.8 , abdominal ultrasound suggesting of cholecystitis, CT of abdominal pelvis suspicious for liver abscess Objective - Vital Signs Vital signs: Vital Signs Temp 98 F 04/26/23 06:42 Pulse 70 04/26/23 06:42 Resp 19 04/26/23 06:42 BP 132/62 04/26/23 06:42 Pulse Ox 95 04/26/23 06:42 FiO2 Intake & Output 04/25/23 04/26/23 04/26/23 18:59 06:59 18:59 Other: Voiding Method Toilet # Voids 2 2 - Exam GENERAL DESCRIPTION: An elderly female up in the chair in no distress RESPIRATORY SYSTEM: Unlabored breathing , decreased breath sounds at bases HEART: S1 S2 regular rate and rhythm , ABDOMEN: Soft , no tenderness EXTREMITIES: No edema feet - Labs CBC & Chem 7: 04/27/23 05:41 04/27/23 05:41 Labs: Abnormal Lab Results - Last 24 Hours (Table) 04/25/23 04/26/23 04/26/23 Range/Units 19:27 04:59 04:59 WBC 15.81 H (4.50-10.00) X 10*3/uL RBC 3.46 L (4.10-5.20) X 10*6/uL Hgb 9.8 L (12.0-15.0) d/dL Hct 31.2 L (37.2-46.3) % MCHC 31.4 L (32.0-37.0) d/dL RDW 14.7 H (11.5-14.5) % Plt Count 512 H (140-440) X 10*3/uL Neutrophils # 12.10 H (1.80-7.70) X 10*3/uL BUN 6.0 L (9.0-27.0) mg/dL BUN/Creatinine Ratio 7.50 L (12.00-20.00) Ratio Glucose 133 H (70-110) mg/dL POC Glucose (mg/dL) 203 H (70-110) mg/dL Calcium 7.9 L (8.7-10.3) mg/dL AST 59 H (13-35) U/L ALT 81 H (8-44) U/L Alkaline Phosphatase 200 H (41-126) U/L C-Reactive Protein 14.40 H (0.00-0.80) mg/dL Total Protein 5.6 L (6.2-8.2) d/dL Albumin 2.5 L (3.8-4.9) d/dL Albumin/Globulin Ratio 0.81 L (1.60-3.17) Ratio Assessment and Plan (1) Bacteremia Current Visit: Yes Status: Acute Code(s): R78.81 - BACTEREMIA SNOMED Code(s): 2520168 (2) Abnormal ultrasound of abdomen Current Visit: Yes Status: Acute Code(s): R93.5 - ABN FINDINGS ON DX IMAGING OF ABD REGIONS, INC RETROPERITON SNOMED Code(s): 77360334474851268 Plan: 1patient present to hospital with sepsis in this patient with a fever tachycardia hypoxemia elevated white count with concern for possible pneumonia however the patient also have elevated liver enzymes and abnormal CT angiogram of the chest with some pneumobilia concern for possible intra-abdominal source not entirely excluded 2- ultrasound of the liver and gallbladder area suspicious for cholecystitis, Gen. surgery has been consulted, patient did have a CT of abdominal pelvis with evidence of liver abscess I ear has been consulted for drainage of this abscess 3Patient to continue Unasyn 3 g every 6 hours and monitor clinical course closely Multiple family members at the bedside questions were answered Dictation was produced using [employer] dictation software. please excuse any grammatical, word or spelling errors. Time with Patient: Less than 30
--- NOTE | 2023-04-28 12:32 | P.PN ---
Subjective Progress Note Date: 04/27/23 Principal diagnosis: Bacteremia possible cholecystitis Patient is a 77-year-old female with a past medical history significant for diabetes mellitus hypertension hyperlipidemia angina presented to the hospital for evaluation of increasing shortness of breath, patient no ticed to be septic with initial concern for possible pneumonia CT angiogram did not show any consolidation and a blood cultures positive for group F strep. On today's evaluation that is 04/27/2023, the patient remains to be afebrile, the patient is breathing comfortably on room air without the need for supplemental oxygen and no shortness of breath, the patient denies having any chest pain or cough, patient denies nausea/vomiting /diarrhea and no abdominal pain, Patient white count 13.32, creatinine is 0.7 , abdominal ultrasound suggesting of cholecystitis, CT of abdominal pelvis suspicious for liver abscess Objective - Vital Signs Vital signs: Vital Signs Temp 98.7 F 04/27/23 14:00 Pulse 76 04/27/23 14:00 Resp 16 04/27/23 14:00 BP 151/68 04/27/23 14:00 Pulse Ox 92 L 04/27/23 14:00 FiO2 Intake & Output 04/26/23 04/27/23 04/27/23 18:59 06:59 18:59 Intake Total 200 Balance 200 Intake: Oral 200 Other: Voiding Method Toilet Toilet # Voids 2 1 - Exam GENERAL DESCRIPTION: An elderly female up in the chair in no distress RESPIRATORY SYSTEM: Unlabored breathing , decreased breath sounds at bases HEART: S1 S2 regular rate and rhythm , ABDOMEN: Soft , no tenderness EXTREMITIES: No edema feet - Labs CBC & Chem 7: 04/27/23 05:41 04/27/23 05:41 Labs: Abnormal Lab Results - Last 24 Hours (Table) 04/27/23 04/27/23 Range/Units 05:41 05:41 WBC 13.32 H (4.50-10.00) X 10*3/uL RBC 3.45 L (4.10-5.20) X 10*6/uL Hgb 9.6 L (12.0-15.0) d/dL Hct 31.0 L (37.2-46.3) % MCHC 31.0 L (32.0-37.0) d/dL RDW 14.6 H (11.5-14.5) % Plt Count 498 H (140-440) X 10*3/uL Neutrophils # 10.15 H (1.80-7.70) X 10*3/uL BUN 5.6 L (9.0-27.0) mg/dL BUN/Creatinine Ratio 8.00 L (12.00-20.00) Ratio Glucose 118 H (70-110) mg/dL Calcium 7.8 L (8.7-10.3) mg/dL AST 70 H (13-35) U/L ALT 88 H (8-44) U/L Alkaline Phosphatase 218 H (41-126) U/L Total Protein 5.7 L (6.2-8.2) d/dL Albumin 2.5 L (3.8-4.9) d/dL Albumin/Globulin Ratio 0.78 L (1.60-3.17) Ratio Microbiology - Last 24 Hours (Table) 04/21/23 17:30 Blood Culture Gram Stain - Final Blood Blood Culture - Final Beta Hemolytic Streptococcus F 04/21/23 17:25 Blood Culture Gram Stain - Final Blood Blood Culture - Final Beta Hemolytic Streptococcus F Assessment and Plan (1) Bacteremia Current Visit: Yes Status: Acute Code(s): R78.81 - BACTEREMIA SNOMED Code(s): 9585067 (2) Abnormal ultrasound of abdomen Current Visit: Yes Status: Acute Code(s): R93.5 - ABN FINDINGS ON DX IMAGING OF ABD REGIONS, INC RETROPERITON SNOMED Code(s): 27381759400868197 Plan: 1patient present to hospital with sepsis in this patient with a fever tachycardia hypoxemia elevated white count with concern for possible pneumonia however the patient also have elevated liver enzymes and abnormal CT angiogram of the chest with some pneumobilia concern for possible intra-abdominal source not entirely excluded 2- ultrasound of the liver and gallbladder area suspicious for cholecystitis, Gen. surgery has been consulted, patient did have a CT of abdominal pelvis with evidence of liver abscess I ear has been consulted for drainage of this abscess 3Patient did have some clinical improvement and will continue Unasyn 3 g every 6 hours and monitor clinical course closely Dictation was produced using [employer] dictation software. please excuse any grammatical, word or spelling errors. Time with Patient: Less than 30
--- NOTE | 2023-04-28 12:33 | CT ---
EXAMINATION TYPE: CT guided abscess drainage DATE OF EXAM: 04/28/2023 COMPARISON: 04/25/2023 HISTORY: Liver abscess CT DLP: 839.8 mGycm The procedure is discussed with the patient, the risks, complications, benefits and alternatives, wer e discussed and any questions were answered. Informed consent was obtained. The patient is placed s upine on the CT table, prepped and draped in the usual sterile fashion. Utilizing a 22-gauge Chiba needle access into the hepatic abscess was achieved with placement of a 0. 018 wire. There is conversion to a 0.035 system and serial dilation 8 Chinese and placement of an 8 Fr ench drainage catheter. Approximate 400 cc of purulent material was aspirated.. Sample sent to pathol reinaldo. Pathology pending. All elements of maximal barrier and sterile technique were utilized. The patient remained stable thr oughout the procedure with no immediate postprocedural complication. IMPRESSION: 1. Successful CT guided hepatic abscess drainage catheter insertion.
--- NOTE | 2023-04-28 12:33 | P.PN ---
Subjective Progress Note Date: 04/28/23 Principal diagnosis: Bacteremia possible cholecystitis Patient is a 77-year-old female with a past medical history significant for diabetes mellitus hypertension hyperlipidemia angina presented to the hospital for evaluation of increasing shortness of breath, patient no ticed to be septic with initial concern for possible pneumonia CT angiogram did not show any consolidation and a blood cultures positive for group F strep. On today's evaluation that is 04/28/2023, the patient continues to be afebrile the patient is breathing comfortably on room air, the patient denies chest pain, shortness of breath or cough, patient denies abdominal pain, no nausea/vomiting and no diarrhea Patient white count 13.32, creatinine is 0.7 as of 04/27/2023 , abdominal ultrasound suggesting of cholecystitis, CT of abdominal pelvis suspicious for liver abscess Objective - Vital Signs Vital signs: Vital Signs Temp 98.1 F 04/28/23 08:00 Pulse 72 04/28/23 11:30 Resp 17 04/28/23 11:30 BP 169/90 04/28/23 12:07 Pulse Ox 96 04/28/23 11:30 FiO2 Intake & Output 04/27/23 04/28/23 04/28/23 18:59 06:59 18:59 Intake Total 400 Balance 400 Weight 81.647 kg Intake: Oral 400 Other: Voiding Method Toilet Toilet # Voids 3 2 - Exam GENERAL DESCRIPTION: An elderly female up in the chair in no distress RESPIRATORY SYSTEM: Unlabored breathing , decreased breath sounds at bases HEART: S1 S2 regular rate and rhythm , ABDOMEN: Soft , no tenderness EXTREMITIES: No edema feet - Labs CBC & Chem 7: 04/27/23 05:41 04/27/23 05:41 Assessment and Plan (1) Bacteremia Current Visit: Yes Status: Acute Code(s): R78.81 - BACTEREMIA SNOMED Code(s): 9187101 (2) Abnormal ultrasound of abdomen Current Visit: Yes Status: Acute Code(s): R93.5 - ABN FINDINGS ON DX IMAGING OF ABD REGIONS, INC RETROPERITON SNOMED Code(s): 20101595997272750 Plan: 1patient present to hospital with sepsis in this patient with a fever tachycardia hypoxemia elevated white count with concern for possible pneumonia however the patient also have elevated liver enzymes and abnormal CT angiogram of the chest with some pneumobilia concern for possible intra-abdominal source not entirely excluded 2- ultrasound of the liver and gallbladder area suspicious for cholecystitis, Gen. surgery has been consulted, patient did have a CT of abdominal pelvis with evidence of liver abscess I R has been consulted for drainage of this abscess, which is scheduled for this afternoon discussed with the IR 3Patient to continue Unasyn 3 g every 6 hours and monitor clinical course closely Dictation was produced using [employer] dictation software. please excuse any grammatical, word or spelling errors. Time with Patient: Less than 30
--- NOTE | 2023-04-28 13:23 | P.PN ---
Subjective Progress Note Date: 04/28/23 This is a very pleasant 77-year-old female patient with a known history of hypertension, hyperlipidemia, diabetes mellitus, and coronary artery disease with 7 stents placed, lifelong nonsmoker. She presented here to the emergency room yesterday with a 2 week history of initially vomiting for a week then fever chills weakness shortness of breath and pleuritic-type chest pain. Chest x-ray revealed some posterior lung base streaky opacities. White count 21.8. Hemoglobin 14.2. Platelets 490. Sodium 135. Potassium 5.1. Bicarb 26. BUN 19. Creatinine 0.99. Glucose 157. AST 67. ALT is 69. D-dimer 2.15. Urinalysis cloudy with 4+ glucose 1+ ketones occasional bacteria. Influenza screen negative. RSV screen negative. COVID-19 screen negative. She did have a T-max of 101.7. She is seen today in consultation in the emergency department. She is currently resting comfortably on a stretcher. Awake and alert in no acute distress. She is maintaining O2 saturations in the mid 90s on 2 L nasal cannula. She's currently afebrile. Hemodynamically stable. She does have a loose nonproductive cough. The patient is seen today 04/23/2023 in follow-up on the regular medical floor. She is currently sitting up in a chair at the bedside. Awake and alert in no acute distress. Currently afebrile. Maintaining good O2 saturation in the 90s on room air. He mechanically stable. She is feeling a bit better today compared to yesterday. Not quite back to her baseline. White count 22.4. Hemoglobin 11.7. Platelets 472. Sodium 136. Potassium 4.5. Bicarb 21. BUN 13. Creatinine 0.87. CT angiogram of the chest was suboptimal but no significant large central or lobar branch pulmonary emboli. There is large pans of probable atelectasis in bilateral bases. Blood cultures are positive for gram-positive cocci in chains. White count 23.4. Hemoglobin 11.7. Sodium 136. Potassium 4.5. Bicarb 21. BUN 13. Creatinine 0.87. Glucose 133. She is currently on ceftriaxone. Remains on bronchodilators. Heparin for DVT prophylaxis. The patient is seen today 04/24/2023 in follow-up on the regular medical floor. She is awake and alert in no acute distress. Sitting up in a chair at the bedside. She denies any worsening shortness of breath, cough or congestion. Maintaining O2 saturations in the 90s on room air. She's afebrile. Hemodynamically stable. Ultrasound of the abdomen revealed evidence of cholelithiasis with thickened gallbladder walk relate with cholecystitis. There is a complex heterogenous lesion measuring up to 8.8 cm in the liver. Indeterminate right renal lesion. Blood cultures are positive for beta- hemolytic streptococcus F. Pro calcitonin was 6.07. White count 18.8. Hemoglobin 11.1. Sodium 139. Potassium 4.1. Bicarb 23. BUN 10. Creatinine 1.0. Glucose 111. AST 69. ALT 71. Alk phos 173. She is currently on Unasyn. D5 and half-normal saline at 75 ML's per hour. The patient is seen today 04/25/2023 in follow-up on the regular medical floor. She is sitting up in a chair at the bedside. Awake and alert in no acute distress. Denies any worsening shortness of breath, cough or congestion. She is maintaining good O2 saturations in the 90s on room air. She's been afebrile. Hemodynamically stable. Glucose 167. She remains on antibiotics in the form of Unasyn. D5.45 at 75 ML's per hour. Heparin for DVT prophylaxis. She did have another fever at 101.7 last evening. The patient is seen today 04/26/2023 in follow-up on the regular medical floor. She is awake and alert in no acute distress. Sitting up in a chair. Denies any worsening shortness of breath, cough or congestion. Maintaining good O2 saturations in the mid 90s on room air. Currently afebrile. Denies any significant abdominal discomfort. Computed tomography scan of the abdomen and pelvis revealed a right-sided liver lesion, most consistent with liver abscess. Cholelithiasis with surrounding inflammatory changes. Consistent with cholecystitis. Gas seen extending to the common bile duct to the sphincter of Shay. May represent sphincter of Shay dysfunction. Plan is for HIDA scan tomorrow. Chest x-ray showing mild cardiomegaly with bibasilar infiltrates/atelectasis. White count 15.8. Hemoglobin 9.8. Platelets 512. Sodium 136. Potassium 3.8. Bicarb 22. BUN 6. Creatinine 0.8. Glucose 133. AST 59. ALT 81. Alk phos 200. C-reactive protein 14.4. She is continued on Unasyn. The patient is seen today 04/27/2023 in follow-up on the regular medical floor. She is awake and alert in no acute distress. She did go down for a hepa tobiliary scan earlier this morning which did reveal a large photopenic defect involving the right lobe of the liver corresponding to CT mass/abscess. There is cholecystitis. Interventional radiology has been consulted for both a liver abscess drain and a Elizabeth cystostomy tube placement. Aspirin remains on hold. Blood cultures are positive for beta-hemolytic streptococcus F. White count 13.3. Hemoglobin 9.6. Platelets 498. Sodium 137. Potassium 3.7. Vicodin 22. BUN 6. Creatinine 0.7. Glucose 118. AST 70. ALT 88. Alk phos 218. She remains on Unasyn. Heparin for DVT prophylaxis. Bronchodilators as needed. The patient is seen today 04/28/2023 in follow-up on the regular medical floor. She is currently up in a chair at the bedside. Awake and alert in no acute distress. Maintaining good O2 saturations in the 90s on room air. Currently afebrile. Hemodynamically stable. Denies any worsening shortness of breath cough or congestion. Denies any significant abdominal discomfort. She is awaiting catheter placement to the hepatic abscess. Blood cultures were positive for beta-hemolytic streptococcus F. She remains on Unasyn. D5 and half-normal saline at 75 ML's per hour. Objective - Vital Signs Vital signs: Vital Signs Temp 98.1 F 04/28/23 08:00 Pulse 68 04/28/23 12:25 Resp 16 04/28/23 12:25 BP 151/71 04/28/23 12:25 Pulse Ox 95 04/28/23 12:25 FiO2 Intake & Output 04/27/23 04/28/23 04/28/23 18:59 06:59 18:59 Intake Total 400 Balance 400 Weight 81.647 kg Intake: Oral 400 Other: Voiding Method Toilet Toilet # Voids 3 2 - Exam GENERAL EXAM: Alert, 77-year-old female, on room air, up in a chair, comfortable in no apparent distress. HEAD: Normocephalic. EYES: Normal reaction of pupils, equal size. NOSE: Clear with pink turbinates. THROAT: No erythema or exudates. NECK: No masses, no JVD. CHEST: No chest wall deformity. LUNGS: Equal air entry with few scattered rhonchi. CVS: S1 and S2 normal with no audible murmur, regular rhythm. ABDOMEN: No hepatosplenomegaly, normal bowel sounds, no guarding or rigidity. SPINE: No scoliosis or deformity SKIN: No rashes CENTRAL NERVOUS SYSTEM: No focal deficits, tone is normal in all 4 extremities. EXTREMITIES: There is no peripheral edema. No clubbing, no cyanosis. Peripheral pulses are intact. - Labs CBC & Chem 7: 04/27/23 05:41 04/27/23 05:41 Assessment and Plan Assessment: Acute hypoxemic respiratory failure secondary to suspected community-acquired pneumonia. Pro-calcitonin 6.07. Currently on Unasyn. Recovered and on room air Bacteremia secondary to beta hemolytic streptococcus F. Currently on Unasyn. Cholecystitis and liver abscess may be contributing and CT suggests pneumobilia Complex liver lesion measuring 8.8 x 7.2 x 7.0 cm. Computed tomography scan of the abdomen and pelvis revealed a right-sided liver lesion, most consistent with liver abscess. Cholelithiasis with surrounding inflammatory changes. Consistent with cholecystitis. Gas seen extending to the common bile duct to the sphincter of Shay. May represent sphincter of Shay dysfunction. HIDA scan shows a large photopenic defect involving the right lobe of the liver corresponding to the CT mass/abscess. Positive for cholecystitis. Febrile illness secondary to above Leukocytosis secondary to above Mild transaminitis secondary to above History of hypertension Hyperlipidemia Coronary disease with previous stent placement 7 Diabetes mellitus, type II Plan: The patient was seen and evaluated Medications reviewed Plan is for interventional radiology for drainage tube for the liver abscess Continue Unasyn Stable and on room air We will continue to follow I have personally seen and examined the patient, performed the documentation and the assessment and plan as written. Number of minutes spent on the visit: 10.
[2023-04-28] MEDS: DEXTROSE 5%-0.9% NACL 1,000 ML IV SCH ×2 (13:57→23:44)
--- NOTE | 2023-04-28 14:55 | P.PN ---
Subjective Progress Note Date: 04/28/23 CHIEF COMPLAINT: Sepsis HISTORY OF PRESENT ILLNESS: The patient is a 77-year-old female admitted with sepsis including pneumonia. Patient denies any abdominal pain. HIDA scan result reports correlate for cholecystitis. Patient scheduled today for drain placement for liver abscess and cholecystostomy tube by IR service. Denies any nausea or vomiting. Afebrile. WBC 15 down to 13.32 Hgb 9.6 platelets 498 total bilirubin 0.5 AST 70 ALT 88 alk phos 218 positive blood cultures PHYSICAL EXAM: VITAL SIGNS: Reviewed GENERAL: Well-developed in no acute distress. HEENT: No sclera icterus. Extraocular movements grossly intact. Moist buccal mucosa. Head is atraumatic, normocephalic. Hears conversational speech. No nasal drainage. NECK: Supple without lymphadenopathy. CHEST: Non-labored respirations and equal bilateral excursions. CARDIOVASCULAR: Palpable 2+ radial pulses. ABDOMEN: Soft. Nondistended. Nontender. MUSCULOSKELETAL: No clubbing or cyanosis. NEUROLOGIC: No focal or lateralizing signs. Cranial nerves II through XII grossly intact. PSYCH: Appropriate affect. Alert and oriented to person, place and time. SKIN: Well perfused. Good skin turgor. ASSESSMENT: 1. Cholecystitis per imaging 2. Pneumonia 3. Coronary artery disease status post stent 4. History of myocardial infarction 5. Liver neoplasm, liver abscess 6. Sepsis PLAN: -Patient status post CT-guided hepatic abscess drainage by IR service -Continue antibiotics -Continue low-fat diet Physician Desizing Machine Operator note has been reviewed by physician. Signing provider agrees with the documented findings, assessment, and plan of care. Objective - Vital Signs Vital signs: Vital Signs Temp 98.1 F 04/28/23 08:00 Pulse 72 04/28/23 11:30 Resp 17 04/28/23 11:30 BP 169/90 04/28/23 12:07 Pulse Ox 96 04/28/23 11:30 FiO2 Intake & Output 04/27/23 04/28/23 04/28/23 18:59 06:59 18:59 Intake Total 400 Balance 400 Weight 81.647 kg Intake: Oral 400 Other: Voiding Method Toilet Toilet # Voids 3 2 - Labs CBC & Chem 7: 04/27/23 05:41 04/27/23 05:41
[2023-04-28] MEDS: HYDROmorphone 0.5 MG/0.5 ML SYRINGE IVP PRN ×2 (15:58→22:12)
[2023-04-28] MEDS: ACETAMINOPHEN TAB 325 MG TAB PO PRN (20:15)
[2023-04-29 05:01] LABS: Appearance,BF Turbid (Clear)
[2023-04-29] MEDS: AMPICILLIN-SULBACTAM 3 GM in SODIUM CHLORIDE 0.9% 100 ML IVPB SCH ×4 (05:26→20:39)
[2023-04-29] MEDS: METOPROLOL SUCCINATE (ER) 50 MG TAB.ER.24H PO SCH ×2 (08:16→20:38)
[2023-04-29] MEDS: FAMOTIDINE 20 MG TAB PO SCH (08:16)
[2023-04-29] MEDS: LOSARTAN 50 MG TAB PO SCH ×2 (08:16→20:38)
[2023-04-29 10:18] LABS: Basophils % (A) 0 %; Eosinophils # (A) 0.1 k/uL (0-0.7); Eosinophils % (A) 0 %; HCT 34.6 % (34.0-46.0); HGB 11.1 gm/dL (11.4-16.0); Hypochromasia Slight; Lymphocytes # (A) 1.8 k/uL (1.0-4.8); Lymphocytes % (A) 11 %; MCH 29.4 pg (25.0-35.0); MCHC 32.2 g/dL (31.0-37.0); MCV 91.3 fL (80.0-100.0); Mean Platelet Volume 7.6; Monocytes # (A) 0.3 k/uL (0-1.0); Monocytes % (A) 2 %; Neutrophils # (A) 13.6 k/uL (1.3-7.7); Neutrophils % (A) 86 %; Platelet Count 569 k/uL (150-450); RBC 3.79 m/uL (3.80-5.40); RDW 14.4 % (11.5-15.5); WBC 15.8 k/uL (3.8-10.6)
[2023-04-29 10:25] LABS: African American GFR (CKD) >90 (>60 ml/min/1.73 sqM); Anion Gap 10 mmol/L; Blood Urea Nitrogen 9 mg/dL (7-17); Calcium 8.2 mg/dL (8.4-10.2); Carbon Dioxide 24 mmol/L (22-30); Chloride 102 mmol/L (98-107); Glucose 199 mg/dL (74-99); Non-African American GFR(CKD) 89 (>60 ml/min/1.73 sqM); Potassium 3.5 mmol/L (3.5-5.1); Sodium 136 mmol/L (137-145)
--- NOTE | 2023-04-29 11:58 | P.PN ---
Subjective Progress Note Date: 04/29/23 Principal diagnosis: Bacteremia possible cholecystitis Patient is a 77-year-old female with a past medical history significant for diabetes mellitus hypertension hyperlipidemia angina presented to the hospital for evaluation of increasing shortness of breath, patient no ticed to be septic with initial concern for possible pneumonia CT angiogram did not show any consolidation and a blood cultures positive for group F strep. Patient is status post CT-guided drainage of the liver abscess on 04/28/2023 On today's evaluation that is 04/29/2023, the patient remains to be afebrile the patient is breathing comfortably on room air, the patient denies chest pain, shortness of breath or cough, patient denies nausea/vomiting , no diarrhea and no abdominal pain Patient white count is 15.8, creatinine is 0.62 , abdominal ultrasound suggesting of cholecystitis, CT of abdominal pelvis suspicious for liver abscess Objective - Vital Signs Vital signs: Vital Signs Temp 98.0 F 04/29/23 07:21 Pulse 71 04/29/23 09:12 Resp 17 04/29/23 07:21 BP 144/81 04/29/23 07:21 Pulse Ox 93 L 04/29/23 07:21 FiO2 Intake & Output 04/28/23 04/29/23 04/29/23 18:59 06:59 18:59 Output Total 250 50 Balance -250 -50 Weight 81.647 kg Output: Drainage 250 50 Right Abdomen 250 50 Other: Voiding Method Toilet Toilet # Voids 3 2 - Exam GENERAL DESCRIPTION: An elderly female up in the chair in no distress RESPIRATORY SYSTEM: Unlabored breathing , decreased breath sounds at bases HEART: S1 S2 regular rate and rhythm , ABDOMEN: Soft , no tenderness EXTREMITIES: No edema feet - Labs CBC & Chem 7: 04/29/23 10:04 04/29/23 10:04 Labs: Abnormal Lab Results - Last 24 Hours (Table) 04/28/23 04/29/23 04/29/23 Range/Units 12:00 10:04 10:04 WBC 15.8 H (3.8-10.6) k/uL RBC 3.79 L (3.80-5.40) m/uL Hgb 11.1 L (11.4-16.0) gm/dL Plt Count 569 H (150-450) k/uL Neutrophils # 13.6 H (1.3-7.7) k/uL Sodium 136 L (137-145) mmol/L Glucose 199 H (74-99) mg/dL Calcium 8.2 L (8.4-10.2) mg/dL Fluid Appearance Turbid A (Clear) Assessment and Plan (1) Bacteremia Current Visit: Yes Status: Acute Code(s): R78.81 - BACTEREMIA SNOMED Code(s): 0690952 (2) Abnormal ultrasound of abdomen Current Visit: Yes Status: Acute Code(s): R93.5 - ABN FINDINGS ON DX IMAGING OF ABD REGIONS, INC RETROPERITON SNOMED Code(s): 12489089351288701 Plan: 1patient present to hospital with sepsis in this patient with a fever tachycardia hypoxemia elevated white count with concern for possible pneumonia however the patient also have elevated liver enzymes and abnormal CT angiogram of the chest with some pneumobilia concern for possible intra-abdominal source not entirely excluded 2- ultrasound of the liver and gallbladder area suspicious for cholecystitis, Gen. surgery has been consulted, patient did have a CT of abdominal pelvis with evidence of liver abscess patient is status post I R drainage of this abscess on 04/28/2023 3Patient to continue Unasyn 3 g every 6 hours , patient with a PICC line for outpatient IV antibiotics Dictation was produced using [employer]viral dictation software. please excuse any grammatical, word or spelling errors. Time with Patient: Less than 30
--- NOTE | 2023-04-29 14:20 | P.PN ---
Subjective Progress Note Date: 04/29/23 CHIEF COMPLAINT: Sepsis HISTORY OF PRESENT ILLNESS: The patient is a 77-year-old female admitted with sepsis including pneumonia. Patient denies any abdominal pain. HIDA scan result reports correlate for cholecystitis. Patient is status post CT-guided hepatic abscess drainage with IR service. Per IR service patient not a candidate for percutaneous cholecystostomy tube. Gallbladder was not distended and no safe access route. Patient did have a fever last night of 101.6. WBC is up from 13-15.8 Hgb 11.1. Drain with a total of 300 mL red, orange output PHYSICAL EXAM: VITAL SIGNS: Reviewed GENERAL: Well-developed in no acute distress. HEENT: No sclera icterus. Extraocular movements grossly intact. Moist buccal mucosa. Head is atraumatic, normocephalic. Hears conversational speech. No nasal drainage. NECK: Supple without lymphadenopathy. CHEST: Non-labored respirations and equal bilateral excursions. CARDIOVASCULAR: Palpable 2+ radial pulses. ABDOMEN: Soft. Nondistended. Nontender. Hepatic drain in place on right side of abdomen MUSCULOSKELETAL: No clubbing or cyanosis. NEUROLOGIC: No focal or lateralizing signs. Cranial nerves II through XII grossly intact. PSYCH: Appropriate affect. Alert and oriented to person, place and time. SKIN: Well perfused. Good skin turgor. ASSESSMENT: 1. Cholecystitis per imaging 2. Pneumonia 3. Coronary artery disease status post stent 4. History of myocardial infarction 5. Liver neoplasm, liver abscess status post drain placement 6. Sepsis 7. Bacteremia PLAN: -Continue antibiotics per ID recommendations -Continue low-fat diet -Continue supportive care Physician Tanning Wheel Filler note has been reviewed by physician. Signing provider agrees with the documented findings, assessment, and plan of care. Objective - Vital Signs Vital signs: Vital Signs Temp 98.0 F 04/29/23 07:21 Pulse 71 04/29/23 09:12 Resp 17 04/29/23 07:21 BP 144/81 04/29/23 07:21 Pulse Ox 93 L 04/29/23 07:21 FiO2 Intake & Output 04/28/23 04/29/23 04/29/23 18:59 06:59 18:59 Output Total 250 50 Balance -250 -50 Weight 81.647 kg Output: Drainage 250 50 Right Abdomen 250 50 Other: Voiding Method Toilet Toilet # Voids 3 2 - Labs CBC & Chem 7: 04/29/23 10:04 04/29/23 10:04 Labs: Abnormal Lab Results - Last 24 Hours (Table) 04/28/23 04/29/23 04/29/23 Range/Units 12:00 10:04 10:04 WBC 15.8 H (3.8-10.6) k/uL RBC 3.79 L (3.80-5.40) m/uL Hgb 11.1 L (11.4-16.0) gm/dL Plt Count 569 H (150-450) k/uL Neutrophils # 13.6 H (1.3-7.7) k/uL Sodium 136 L (137-145) mmol/L Glucose 199 H (74-99) mg/dL Calcium 8.2 L (8.4-10.2) mg/dL Fluid Appearance Turbid A (Clear)
--- NOTE | 2023-04-29 14:21 | P.PN ---
Subjective Progress Note Date: 04/29/23 This is a very pleasant 77-year-old female patient with a known history of hypertension, hyperlipidemia, diabetes mellitus, and coronary artery disease with 7 stents placed, lifelong nonsmoker. She presented here to the emergency room yesterday with a 2 week history of initially vomiting for a week then fever chills weakness shortness of breath and pleuritic-type chest pain. Chest x-ray revealed some posterior lung base streaky opacities. White count 21.8. Hemoglobin 14.2. Platelets 490. Sodium 135. Potassium 5.1. Bicarb 26. BUN 19. Creatinine 0.99. Glucose 157. AST 67. ALT is 69. D-dimer 2.15. Urinalysis cloudy with 4+ glucose 1+ ketones occasional bacteria. Influenza screen negative. RSV screen negative. COVID-19 screen negative. She did have a T-max of 101.7. She is seen today in consultation in the emergency department. She is currently resting comfortably on a stretcher. Awake and alert in no acute distress. She is maintaining O2 saturations in the mid 90s on 2 L nasal cannula. She's currently afebrile. Hemodynamically stable. She does have a loose nonproductive cough. The patient is seen today 04/23/2023 in follow-up on the regular medical floor. She is currently sitting up in a chair at the bedside. Awake and alert in no acute distress. Currently afebrile. Maintaining good O2 saturation in the 90s on room air. He mechanically stable. She is feeling a bit better today compared to yesterday. Not quite back to her baseline. White count 22.4. Hemoglobin 11.7. Platelets 472. Sodium 136. Potassium 4.5. Bicarb 21. BUN 13. Creatinine 0.87. CT angiogram of the chest was suboptimal but no significant large central or lobar branch pulmonary emboli. There is large pans of probable atelectasis in bilateral bases. Blood cultures are positive for gram-positive cocci in chains. White count 23.4. Hemoglobin 11.7. Sodium 136. Potassium 4.5. Bicarb 21. BUN 13. Creatinine 0.87. Glucose 133. She is currently on ceftriaxone. Remains on bronchodilators. Heparin for DVT prophylaxis. The patient is seen today 04/24/2023 in follow-up on the regular medical floor. She is awake and alert in no acute distress. Sitting up in a chair at the bedside. She denies any worsening shortness of breath, cough or congestion. Maintaining O2 saturations in the 90s on room air. She's afebrile. Hemodynamically stable. Ultrasound of the abdomen revealed evidence of cholelithiasis with thickened gallbladder walk relate with cholecystitis. There is a complex heterogenous lesion measuring up to 8.8 cm in the liver. Indeterminate right renal lesion. Blood cultures are positive for beta- hemolytic streptococcus F. Pro calcitonin was 6.07. White count 18.8. Hemoglobin 11.1. Sodium 139. Potassium 4.1. Bicarb 23. BUN 10. Creatinine 1.0. Glucose 111. AST 69. ALT 71. Alk phos 173. She is currently on Unasyn. D5 and half-normal saline at 75 ML's per hour. The patient is seen today 04/25/2023 in follow-up on the regular medical floor. She is sitting up in a chair at the bedside. Awake and alert in no acute distress. Denies any worsening shortness of breath, cough or congestion. She is maintaining good O2 saturations in the 90s on room air. She's been afebrile. Hemodynamically stable. Glucose 167. She remains on antibiotics in the form of Unasyn. D5.45 at 75 ML's per hour. Heparin for DVT prophylaxis. She did have another fever at 101.7 last evening. The patient is seen today 04/26/2023 in follow-up on the regular medical floor. She is awake and alert in no acute distress. Sitting up in a chair. Denies any worsening shortness of breath, cough or congestion. Maintaining good O2 saturations in the mid 90s on room air. Currently afebrile. Denies any significant abdominal discomfort. Computed tomography scan of the abdomen and pelvis revealed a right-sided liver lesion, most consistent with liver abscess. Cholelithiasis with surrounding inflammatory changes. Consistent with cholecystitis. Gas seen extending to the common bile duct to the sphincter of Shay. May represent sphincter of Shay dysfunction. Plan is for HIDA scan tomorrow. Chest x-ray showing mild cardiomegaly with bibasilar infiltrates/atelectasis. White count 15.8. Hemoglobin 9.8. Platelets 512. Sodium 136. Potassium 3.8. Bicarb 22. BUN 6. Creatinine 0.8. Glucose 133. AST 59. ALT 81. Alk phos 200. C-reactive protein 14.4. She is continued on Unasyn. The patient is seen today 04/27/2023 in follow-up on the regular medical floor. She is awake and alert in no acute distress. She did go down for a hepa tobiliary scan earlier this morning which did reveal a large photopenic defect involving the right lobe of the liver corresponding to CT mass/abscess. There is cholecystitis. Interventional radiology has been consulted for both a liver abscess drain and a Elizabeth cystostomy tube placement. Aspirin remains on hold. Blood cultures are positive for beta-hemolytic streptococcus F. White count 13.3. Hemoglobin 9.6. Platelets 498. Sodium 137. Potassium 3.7. Vicodin 22. BUN 6. Creatinine 0.7. Glucose 118. AST 70. ALT 88. Alk phos 218. She remains on Unasyn. Heparin for DVT prophylaxis. Bronchodilators as needed. The patient is seen today 04/28/2023 in follow-up on the regular medical floor. She is currently up in a chair at the bedside. Awake and alert in no acute distress. Maintaining good O2 saturations in the 90s on room air. Currently afebrile. Hemodynamically stable. Denies any worsening shortness of breath cough or congestion. Denies any significant abdominal discomfort. She is awaiting catheter placement to the hepatic abscess. Blood cultures were positive for beta-hemolytic streptococcus F. She remains on Unasyn. D5 and half-normal saline at 75 ML's per hour. The patient is seen today 04/29/2023 in follow-up on the regular medical floor. She remains up in a chair at the bedside. Awake and alert in no acute distress. She did have her catheter placed within the liver abscess and it continues to drain purulent fluid. Her blood cultures are positive for beta-hemolytic streptococcus F. She remains on Unasyn. She has D5 and half-normal saline at 75 ML's per hour. He is currently on room air. She's currently afebrile. Hemodynamically stable. White count 15.8. Hemoglobin 11.1. Platelet count 569. Sodium 136. Potassium 3.5. Bicarb 24. BUN 9. Creatinine 0.62. Glucose 199. Objective - Vital Signs Vital signs: Vital Signs Temp 98.2 F 04/29/23 13:16 Pulse 74 04/29/23 13:16 Resp 16 04/29/23 13:16 BP 123/69 04/29/23 13:16 Pulse Ox 94 L 04/29/23 13:16 FiO2 Intake & Output 04/28/23 04/29/23 04/29/23 18:59 06:59 18:59 Output Total 250 50 Balance -250 -50 Weight 81.647 kg Output: Drainage 250 50 Right Abdomen 250 50 Other: Voiding Method Toilet Toilet # Voids 3 2 - Exam GENERAL EXAM: Alert, very pleasant 77-year-old female, up in a chair, comfortab le in no apparent distress. HEAD: Normocephalic. EYES: Normal reaction of pupils, equal size. NOSE: Clear with pink turbinates. THROAT: No erythema or exudates. NECK: No masses, no JVD. CHEST: No chest wall deformity. LUNGS: Equal air entry with few scattered rhonchi. On room air. CVS: S1 and S2 normal with no audible murmur, regular rhythm. ABDOMEN: No hepatosplenomegaly, normal bowel sounds, no guarding or rigidity. SPINE: No scoliosis or deformity SKIN: No rashes CENTRAL NERVOUS SYSTEM: No focal deficits, tone is normal in all 4 extremities. EXTREMITIES: There is no peripheral edema. No clubbing, no cyanosis. Peripheral pulses are intact. - Labs CBC & Chem 7: 04/29/23 10:04 04/29/23 10:04 Labs: Abnormal Lab Results - Last 24 Hours (Table) 04/28/23 04/29/23 04/29/23 Range/Units 12:00 10:04 10:04 WBC 15.8 H (3.8-10.6) k/uL RBC 3.79 L (3.80-5.40) m/uL Hgb 11.1 L (11.4-16.0) gm/dL Plt Count 569 H (150-450) k/uL Neutrophils # 13.6 H (1.3-7.7) k/uL Sodium 136 L (137-145) mmol/L Glucose 199 H (74-99) mg/dL Calcium 8.2 L (8.4-10.2) mg/dL Fluid Appearance Turbid A (Clear) Assessment and Plan Assessment: Acute hypoxemic respiratory failure secondary to suspected community-acquired pneumonia. Pro-calcitonin 6.07. Currently on Unasyn. Recovered and on room air Bacteremia secondary to beta hemolytic streptococcus F. Currently on Unasyn. Cholecystitis and liver abscess may be contributing and CT suggests pneumobilia Complex liver abscess measuring 8.8 x 7.2 x 7.0 cm. Computed tomography scan of the abdomen and pelvis revealed a right-sided liver lesion, most consistent with liver abscess. Cholelithiasis with surrounding inflammatory changes. Consistent with cholecystitis. Gas seen extending to the common bile duct to the sphincter of Shay. May represent sphincter of Shay dysfunction. HIDA scan shows a large photopenic defect involving the right lobe of the liver corresponding to the CT mass/abscess. Positive for cholecystitis. Drainage tube placed into the liver abscess on 04/28/2023. Febrile illness secondary to above Leukocytosis secondary to above Mild transaminitis secondary to above History of hypertension Hyperlipidemia Coronary disease with previous stent placement 7 Diabetes mellitus, type II Plan: The patient was seen and evaluated Medications and labs reviewed Drainage tube in place for the liver abscess Continue Unasyn Stable and on room air We will continue to follow I have personally seen and examined the patient, performed the documentation and the assessment and plan as written. Number of minutes spent on the visit: 10.
[2023-04-29] MEDS: DEXTROSE 5%-0.9% NACL 1,000 ML IV SCH (16:57)
--- NOTE | 2023-04-29 20:18 | P.PN ---
Subjective Progress Note Date: 04/28/23 This is a pleasant 77 years old female with past medical history of Hyperlipidemia, Hypertension, Heart Catheterization With Stent x7 Patient presents because of worsening dyspnea and generalized weakness. Her weakness and all started after she got a shot last Thursday, she got sick and she wants to see her PCP Dr. Lawton will advise her to go to the emergency room but patient decided to wait because her was sick, she was getting worse so she eventually came to the emergency room. She has cough with little chest pain with deep inspiration. She hasn't been eating well for the last 2-3 days. She denies smoking alcohol or illicit drugs. She denies GI, urinary, or neurological symptoms On admission she had a fever of 101.7. Patient is saturating 88% to 93% on room air Labs showing leukocytosis of 21.8. Rest of CBC, INR, BMP is unremarkable Enzymes mildly elevated with AST 67 and ALT 69. Viruses and detected, influenza, RSV at [facility] EKG showed sinus tachycardia and [address]-T changes and LVH. Chest x-ray: Posterior lung bases streaky opacities. Correlate for atelectasis or pneumonia Patient was started with sutures and Zithromax and admitted to the hospital 04/23/2023 Patient feels better but lots of chills. She feels weak but improving, patient stated she started getting around better. She eats well. She had occasional nausea and Zofran is added Vitals are stable Blood culture came back positive for gram-positive cocci in chains Has leukocytosis of 23,000, liver enzymes are stable and mildly elevated She remains on ceftriaxone, Zithromax and normal saline 75 mL/h 04/24/2023 Patient generally feels better with less chills and no nausea. She still feels generally weak. No respiratory symptoms no chest pain or dyspnea even with exertion. No abdominal pain but patient reports diarrhea about 2 bouts of loose stool this morning Blood culture came back positive for beta hemolytic Streptococcus, GI source is suspected. Therefore ultrasound of the abdomen showing possible cholecystitis but patient is asymptomatic. Computed tomography scan admission also showed pneumobilia most likely the source of bacteremia. Also showing liver mass and CAT scan of the abdomen is no significant 04/25/[address] of the abdomen and pelvis today for her liver lesion seen on ultrasound and showing abscess large 8.6 x 7 cm as well as acute cholecystitis and pneumobilia suspicious for sphincter of 40 dysfunction. Most likely it is the source for patient's Streptococcus bacteremia. Clinically patient looks comfortable not in distress. No abdominal pain or tenderness. Her main complaint is feeling generalized weakness. Cardiology evaluation for preop assessment is obtained and the recommended echocardiogram which is pending for now. Antibiotic was changed to Unasyn 04/26/2023 Patient sitting up in chair, her main complaint was generalized weakness with partial improvement. Patient denies any other complaints. She denies right upper quadrant pain. No nausea vomiting. Patient with evidence of Streptococcus bacteremia Also patient has asymmetric, minimally symptomatic acute cholecystitis and evidence of liver abscess Surgery team on the case will plan for aspiration of the abscess. Currently continued with Unasyn and normal saline at 75 mL/h Plan of care and problem is discussed with the patient details and she verbalized understanding and acceptance to the management plan 04/27/2023 She still feels tired and exhausted. No significant right upper quadrant pain and tenderness. Surgery team recommended drainage of the abscess by IR team, however they could not do it because patient already took aspirin yesterday. Today patient did not take aspirin and he'll follow-up with surgery team for further recommendation regarding her liver abscess and cholecystitis. In the meantime she remains on Unasyn normal sinus 75 mL per 04/28/2023 Patient is currently resting in bed. Awake alert and oriented x3. Abdominal discomfort/pain is better. Patient is status post drainage of hepatic abscess with a drain tube placement today. Patient has been afebrile. No nausea or vomiting. Tolerating oral diet. Patient is being current on antibiotics in the form of Unasyn and also on IV hydration with D5 half normal saline. Blood cultures growing beta-hemolytic Streptococcus. Laboratory data reviewed. Current medications reviewed. Objective - Vital Signs Vital signs: Vital Signs Temp 101.6 F H 04/28/23 19:17 Pulse 69 04/28/23 19:17 Resp 18 04/28/23 19:17 BP 135/71 04/28/23 19:17 Pulse Ox 92 L 04/28/23 19:17 FiO2 Intake & Output 04/28/23 04/28/23 04/29/23 06:59 18:59 06:59 Output Total 250 Balance -250 Weight 81.647 kg Output: Drainage 250 Right Abdomen 250 Other: Voiding Method Toilet # Voids 2 3 - Exam - Exam GENERAL: The patient is alert and oriented x3, not in any acute distress. Well developed, well nourished. HEENT: Pupils are round and equally reacting to light. EOMI. No scleral icterus. No conjunctival pallor. Normocephalic, atraumatic. No pharyngeal erythema. No thyromegaly. CARDIOVASCULAR: S1 and S2 present. No murmurs, rubs, or gallops. PULMONARY: Chest is clear to auscultation, no wheezing , no crackles. ABDOMEN: Soft, nontender, nondistended, normoactive bowel sounds. No palpable organomegaly. MUSCULOSKELETAL: No joint swelling or deformity. EXTREMITIES: No cyanosis, clubbing, or pedal edema. NEUROLOGICAL: Gross neurological examination did not reveal any focal deficits. SKIN: No rashes. no petechiae. - Labs CBC & Chem 7: 04/29/23 10:04 04/29/23 10:04 Assessment and Plan Assessment: Liver abscess 8.6 x 7 cm Status post hepatic drain placement IR guided on 04/28/2023. Sepsis, fever and a leukocytosis Acute hypoxemic respiratory failure secondary to suspected community-acquired pneumonia. Cholecystitis, acute as per CT Pneumobilia suspicious for sphincter of Shay dysfunction Liver Mass Mild transaminitis Hypertension Hyperlipidemia History of coronary artery disease status post stent 7 Obesity with BMI of 31.9 Plan: Status post hepatic drain placement IR guided on 04/28/2023. Changed antibiotics to Unasyn Surgical service team on the case for her liver abscess and cholecystitis Preoperative cable testers helper team assessment is obtained and consulted Continue with gentle hydration Continue with oxygen Labs and medication were reviewed. Monitor labs and vitals. DVT and GI prophylaxis. DVT prophylaxis: Subcutaneous heparin GI Prophylaxis: Pepcid PT/OT: Pending Prognosis is guarded Time with Patient: Greater than 30
--- NOTE | 2023-04-29 20:23 | P.PN ---
Subjective Progress Note Date: 04/29/23 This is a pleasant 77 years old female with past medical history of Hyperlipidemia, Hypertension, Heart Catheterization With Stent x7 Patient presents because of worsening dyspnea and generalized weakness. Her weakness and all started after she got a shot last Thursday, she got sick and she wants to see her PCP Dr. Lawton will advise her to go to the emergency room but patient decided to wait because her was sick, she was getting worse so she eventually came to the emergency room. She has cough with little chest pain with deep inspiration. She hasn't been eating well for the last 2-3 days. She denies smoking alcohol or illicit drugs. She denies GI, urinary, or neurological symptoms On admission she had a fever of 101.7. Patient is saturating 88% to 93% on room air Labs showing leukocytosis of 21.8. Rest of CBC, INR, BMP is unremarkable Enzymes mildly elevated with AST 67 and ALT 69. Viruses and detected, influenza, RSV at [facility] EKG showed sinus tachycardia and [address]-T changes and LVH. Chest x-ray: Posterior lung bases streaky opacities. Correlate for atelectasis or pneumonia Patient was started with sutures and Zithromax and admitted to the hospital 04/23/2023 Patient feels better but lots of chills. She feels weak but improving, patient stated she started getting around better. She eats well. She had occasional nausea and Zofran is added Vitals are stable Blood culture came back positive for gram-positive cocci in chains Has leukocytosis of 23,000, liver enzymes are stable and mildly elevated She remains on ceftriaxone, Zithromax and normal saline 75 mL/h 04/24/2023 Patient generally feels better with less chills and no nausea. She still feels generally weak. No respiratory symptoms no chest pain or dyspnea even with exertion. No abdominal pain but patient reports diarrhea about 2 bouts of loose stool this morning Blood culture came back positive for beta hemolytic Streptococcus, GI source is suspected. Therefore ultrasound of the abdomen showing possible cholecystitis but patient is asymptomatic. Computed tomography scan admission also showed pneumobilia most likely the source of bacteremia. Also showing liver mass and CAT scan of the abdomen is no significant 04/25/[address] of the abdomen and pelvis today for her liver lesion seen on ultrasound and showing abscess large 8.6 x 7 cm as well as acute cholecystitis and pneumobilia suspicious for sphincter of 40 dysfunction. Most likely it is the source for patient's Streptococcus bacteremia. Clinically patient looks comfortable not in distress. No abdominal pain or tenderness. Her main complaint is feeling generalized weakness. Cardiology evaluation for preop assessment is obtained and the recommended echocardiogram which is pending for now. Antibiotic was changed to Unasyn 04/26/2023 Patient sitting up in chair, her main complaint was generalized weakness with partial improvement. Patient denies any other complaints. She denies right upper quadrant pain. No nausea vomiting. Patient with evidence of Streptococcus bacteremia Also patient has asymmetric, minimally symptomatic acute cholecystitis and evidence of liver abscess Surgery team on the case will plan for aspiration of the abscess. Currently continued with Unasyn and normal saline at 75 mL/h Plan of care and problem is discussed with the patient details and she verbalized understanding and acceptance to the management plan 04/27/2023 She still feels tired and exhausted. No significant right upper quadrant pain and tenderness. Surgery team recommended drainage of the abscess by IR team, however they could not do it because patient already took aspirin yesterday. Today patient did not take aspirin and he'll follow-up with surgery team for further recommendation regarding her liver abscess and cholecystitis. In the meantime she remains on Unasyn normal sinus 75 mL per 04/28/2023 Patient is currently resting in bed. Awake alert and oriented x3. Abdominal discomfort/pain is better. Patient is status post drainage of hepatic abscess with a drain tube placement today. Patient has been afebrile. No nausea or vomiting. Tolerating oral diet. Patient is being current on antibiotics in the form of Unasyn and also on IV hydration with D5 half normal saline. Blood cultures growing beta-hemolytic Streptococcus. Laboratory data reviewed. 04/29/2023 Patient is resting in bed. On room air. Awake alert and oriented. Hepatic abscess drain to with purulent/serosanguineous fluid. Patient does have beta- hemolytic Streptococcus bacteremia. Continued on antibiotics of cefepime. Patient has been afebrile. No nausea vomiting or abdominal pain or diarrhea. No cough or sputum production. Tolerating oral diet. Laboratory pressure WBC 15.8 hemoglobin 11.1 and platelets 569 Sodium 136 potassium 3.5 chloride 102 bicarb is 24 BUN 9 and creatinine 0.16 blood sugar is 199. Pulmonary, ID and general surgery is on board. Current medications reviewed. Objective - Vital Signs Vital signs: Vital Signs Temp 98.6 F 04/29/23 19:31 Pulse 84 04/29/23 19:31 Resp 16 04/29/23 19:45 BP 128/73 04/29/23 19:31 Pulse Ox 96 04/29/23 19:45 FiO2 Intake & Output 04/29/23 04/29/23 04/30/23 06:59 18:59 06:59 Output Total 50 50 Balance -50 -50 Output: Drainage 50 50 Right Abdomen 50 50 Other: Voiding Method Toilet # Voids 2 3 - Exam - Exam GENERAL: The patient is alert and oriented x3, not in any acute distress. Well developed, well nourished. HEENT: Pupils are round and equally reacting to light. EOMI. No scleral icterus. No conjunctival pallor. Normocephalic, atraumatic. No pharyngeal erythema. No thyromegaly. CARDIOVASCULAR: S1 and S2 present. No murmurs, rubs, or gallops. PULMONARY: Chest is clear to auscultation, no wheezing , no crackles. ABDOMEN: Soft, nontender, nondistended, normoactive bowel sounds. No palpable organomegaly. MUSCULOSKELETAL: No joint swelling or deformity. EXTREMITIES: No cyanosis, clubbing, or pedal edema. NEUROLOGICAL: Gross neurological examination did not reveal any focal deficits. SKIN: No rashes. no petechiae. - Labs CBC & Chem 7: 04/29/23 10:04 04/29/23 10:04 Labs: Abnormal Lab Results - Last 24 Hours (Table) 04/28/23 04/29/23 04/29/23 Range/Units 12:00 10:04 10:04 WBC 15.8 H (3.8-10.6) k/uL RBC 3.79 L (3.80-5.40) m/uL Hgb 11.1 L (11.4-16.0) gm/dL Plt Count 569 H (150-450) k/uL Neutrophils # 13.6 H (1.3-7.7) k/uL Sodium 136 L (137-145) mmol/L Glucose 199 H (74-99) mg/dL Calcium 8.2 L (8.4-10.2) mg/dL Fluid Appearance Turbid A (Clear) Assessment and Plan Assessment: Liver abscess 8.6 x 7 cm Status post hepatic drain placement IR guided on 04/28/2023. Sepsis, fever and a leukocytosis Acute hypoxemic respiratory failure secondary to suspected community-acquired pneumonia. Cholecystitis, acute as per CT Pneumobilia suspicious for sphincter of Shay dysfunction Liver Mass Mild transaminitis Hypertension Hyperlipidemia History of coronary artery disease status post stent 7 Obesity with BMI of 31.9 Plan: Status post hepatic drain placement IR guided on 04/28/2023. Aspirin is on hold prior to procedure. Changed antibiotics to Unasyn Surgical service team on the case for her liver abscess and cholecystitis Preoperative ditching machine operator team assessment is obtained and consulted Continue with gentle hydration Continue with oxygen Labs and medication were reviewed. Monitor labs and vitals. DVT prophylaxis: Subcutaneous heparin GI Prophylaxis: Pepcid PT/OT: Pending Prognosis is guarded Time with Patient: Greater than 30
[2023-04-29] MEDS: SODIUM CHLORIDE 0.9% 1,000 ML IV SCH (20:39)
[2023-04-30] MEDS: HEPARIN SODIUM,PORCINE 5,000 UNIT/ML 1 ML VIAL SQ SCH ×3 (06:11→15:39)
[2023-04-30] MEDS: AMPICILLIN-SULBACTAM 3 GM in SODIUM CHLORIDE 0.9% 100 ML IVPB SCH ×4 (06:11→21:39)
[2023-04-30 07:09] LABS: Basophils % (A) 0 %; Eosinophils # (A) 0.2 k/uL (0-0.7); Eosinophils % (A) 1 %; HCT 32.2 % (34.0-46.0); HGB 10.3 gm/dL (11.4-16.0); Hypochromasia Slight; Lymphocytes # (A) 2.2 k/uL (1.0-4.8); Lymphocytes % (A) 21 %; MCH 28.6 pg (25.0-35.0); MCHC 31.9 g/dL (31.0-37.0); MCV 89.7 fL (80.0-100.0); Mean Platelet Volume 7.6; Monocytes # (A) 0.4 k/uL (0-1.0); Monocytes % (A) 4 %; Neutrophils # (A) 7.6 k/uL (1.3-7.7); Neutrophils % (A) 72 %; Platelet Count 603 k/uL (150-450); RDW 14.3 % (11.5-15.5); WBC 10.6 k/uL (3.8-10.6)
[2023-04-30 08:02] LABS: ALT 68 U/L (4-34); AST 45 U/L (14-36); African American GFR (CKD) >90 (>60 ml/min/1.73 sqM); Albumin 2.5 g/dL (3.5-5.0); Albumin/Globulin Ratio 0.7; Alkaline Phosphatase 248 U/L (38-126); Anion Gap 11 mmol/L; Blood Urea Nitrogen 8 mg/dL (7-17); Calcium 8.2 mg/dL (8.4-10.2); Carbon Dioxide 20 mmol/L (22-30); Chloride 107 mmol/L (98-107); Globulin 3.7 g/dL; Glucose 112 mg/dL (74-99); Non-African American GFR(CKD) 89 (>60 ml/min/1.73 sqM); Potassium 3.8 mmol/L (3.5-5.1); Sodium 138 mmol/L (137-145); Total Bilirubin 0.4 mg/dL (0.2-1.3); Total Protein 6.2 g/dL (6.3-8.2)
[2023-04-30] MEDS: METOPROLOL SUCCINATE (ER) 50 MG TAB.ER.24H PO SCH ×2 (09:10→21:39)
[2023-04-30] MEDS: LOSARTAN 50 MG TAB PO SCH ×2 (09:10→21:46)
[2023-04-30] MEDS: FAMOTIDINE 20 MG TAB PO SCH (09:10)
--- NOTE | 2023-04-30 12:38 | P.PN ---
Subjective Progress Note Date: 04/30/23 This is a very pleasant 77-year-old female patient with a known history of hypertension, hyperlipidemia, diabetes mellitus, and coronary artery disease with 7 stents placed, lifelong nonsmoker. She presented here to the emergency room yesterday with a 2 week history of initially vomiting for a week then fever chills weakness shortness of breath and pleuritic-type chest pain. Chest x-ray revealed some posterior lung base streaky opacities. White count 21.8. Hemoglobin 14.2. Platelets 490. Sodium 135. Potassium 5.1. Bicarb 26. BUN 19. Creatinine 0.99. Glucose 157. AST 67. ALT is 69. D-dimer 2.15. Urinalysis cloudy with 4+ glucose 1+ ketones occasional bacteria. Influenza screen negative. RSV screen negative. COVID-19 screen negative. She did have a T-max of 101.7. She is seen today in consultation in the emergency department. She is currently resting comfortably on a stretcher. Awake and alert in no acute distress. She is maintaining O2 saturations in the mid 90s on 2 L nasal cannula. She's currently afebrile. Hemodynamically stable. She does have a loose nonproductive cough. The patient is seen today 04/23/2023 in follow-up on the regular medical floor. She is currently sitting up in a chair at the bedside. Awake and alert in no acute distress. Currently afebrile. Maintaining good O2 saturation in the 90s on room air. He mechanically stable. She is feeling a bit better today compared to yesterday. Not quite back to her baseline. White count 22.4. Hemoglobin 11.7. Platelets 472. Sodium 136. Potassium 4.5. Bicarb 21. BUN 13. Creatinine 0.87. CT angiogram of the chest was suboptimal but no significant large central or lobar branch pulmonary emboli. There is large pans of probable atelectasis in bilateral bases. Blood cultures are positive for gram-positive cocci in chains. White count 23.4. Hemoglobin 11.7. Sodium 136. Potassium 4.5. Bicarb 21. BUN 13. Creatinine 0.87. Glucose 133. She is currently on ceftriaxone. Remains on bronchodilators. Heparin for DVT prophylaxis. The patient is seen today 04/24/2023 in follow-up on the regular medical floor. She is awake and alert in no acute distress. Sitting up in a chair at the bedside. She denies any worsening shortness of breath, cough or congestion. Maintaining O2 saturations in the 90s on room air. She's afebrile. Hemodynamically stable. Ultrasound of the abdomen revealed evidence of cholelithiasis with thickened gallbladder walk relate with cholecystitis. There is a complex heterogenous lesion measuring up to 8.8 cm in the liver. Indeterminate right renal lesion. Blood cultures are positive for beta- hemolytic streptococcus F. Pro calcitonin was 6.07. White count 18.8. Hemoglobin 11.1. Sodium 139. Potassium 4.1. Bicarb 23. BUN 10. Creatinine 1.0. Glucose 111. AST 69. ALT 71. Alk phos 173. She is currently on Unasyn. D5 and half-normal saline at 75 ML's per hour. The patient is seen today 04/25/2023 in follow-up on the regular medical floor. She is sitting up in a chair at the bedside. Awake and alert in no acute distress. Denies any worsening shortness of breath, cough or congestion. She is maintaining good O2 saturations in the 90s on room air. She's been afebrile. Hemodynamically stable. Glucose 167. She remains on antibiotics in the form of Unasyn. D5.45 at 75 ML's per hour. Heparin for DVT prophylaxis. She did have another fever at 101.7 last evening. The patient is seen today 04/26/2023 in follow-up on the regular medical floor. She is awake and alert in no acute distress. Sitting up in a chair. Denies any worsening shortness of breath, cough or congestion. Maintaining good O2 saturations in the mid 90s on room air. Currently afebrile. Denies any significant abdominal discomfort. Computed tomography scan of the abdomen and pelvis revealed a right-sided liver lesion, most consistent with liver abscess. Cholelithiasis with surrounding inflammatory changes. Consistent with cholecystitis. Gas seen extending to the common bile duct to the sphincter of Shay. May represent sphincter of Shay dysfunction. Plan is for HIDA scan tomorrow. Chest x-ray showing mild cardiomegaly with bibasilar infiltrates/atelectasis. White count 15.8. Hemoglobin 9.8. Platelets 512. Sodium 136. Potassium 3.8. Bicarb 22. BUN 6. Creatinine 0.8. Glucose 133. AST 59. ALT 81. Alk phos 200. C-reactive protein 14.4. She is continued on Unasyn. The patient is seen today 04/27/2023 in follow-up on the regular medical floor. She is awake and alert in no acute distress. She did go down for a hepa tobiliary scan earlier this morning which did reveal a large photopenic defect involving the right lobe of the liver corresponding to CT mass/abscess. There is cholecystitis. Interventional radiology has been consulted for both a liver abscess drain and a Elizabeth cystostomy tube placement. Aspirin remains on hold. Blood cultures are positive for beta-hemolytic streptococcus F. White count 13.3. Hemoglobin 9.6. Platelets 498. Sodium 137. Potassium 3.7. Vicodin 22. BUN 6. Creatinine 0.7. Glucose 118. AST 70. ALT 88. Alk phos 218. She remains on Unasyn. Heparin for DVT prophylaxis. Bronchodilators as needed. The patient is seen today 04/28/2023 in follow-up on the regular medical floor. She is currently up in a chair at the bedside. Awake and alert in no acute distress. Maintaining good O2 saturations in the 90s on room air. Currently afebrile. Hemodynamically stable. Denies any worsening shortness of breath cough or congestion. Denies any significant abdominal discomfort. She is awaiting catheter placement to the hepatic abscess. Blood cultures were positive for beta-hemolytic streptococcus F. She remains on Unasyn. D5 and half-normal saline at 75 ML's per hour. The patient is seen today 04/29/2023 in follow-up on the regular medical floor. She remains up in a chair at the bedside. Awake and alert in no acute distress. She did have her catheter placed within the liver abscess and it continues to drain purulent fluid. Her blood cultures are positive for beta-hemolytic streptococcus F. She remains on Unasyn. She has D5 and half-normal saline at 75 ML's per hour. He is currently on room air. She's currently afebrile. Hemodynamically stable. White count 15.8. Hemoglobin 11.1. Platelet count 569. Sodium 136. Potassium 3.5. Bicarb 24. BUN 9. Creatinine 0.62. Glucose 199. The patient is seen today 04/30/2023 in follow-up on the regular medical floor. She is awake and alert in no acute distress. Sitting up in bed. Denies any worsening shortness of breath, cough or congestion. Maintaining good O2 saturations in the mid 90s on room air. She's afebrile. Hemodynamically stable. Blood cultures are positive for beta-hemolytic streptococcus F. White count 10.6. Hemoglobin 10.3. 603. Sodium 138. Potassium 3.8. Bicarb 20. BUN 8. Creatinine 0.61. Glucose 112. AST 45. ALT 68. Alk phos 248. She is continued on Unasyn. Remains on bronchodilators. Heparin for DVT prophylaxis. Normal saline at 50 MLS per hour. Objective - Vital Signs Vital signs: Vital Signs Temp 98.1 F 04/30/23 07:22 Pulse 71 04/30/23 07:22 Resp 18 04/30/23 08:00 BP 145/69 04/30/23 07:22 Pulse Ox 95 04/30/23 07:22 FiO2 Intake & Output 04/29/23 04/30/23 04/30/23 18:59 06:59 18:59 Output Total 50 20 Balance -50 -20 Output: Drainage 50 20 Right Abdomen 50 20 Other: Voiding Method Toilet Toilet Toilet # Voids 3 2 - Exam GENERAL EXAM: Alert, pleasant 77-year-old female, comfortable in no apparent distress. HEAD: Normocephalic. EYES: Normal reaction of pupils, equal size. NOSE: Clear with pink turbinates. THROAT: No erythema or exudates. NECK: No masses, no JVD. CHEST: No chest wall deformity. LUNGS: Equal air entry with few scattered rhonchi. On room air. CVS: S1 and S2 normal with no audible murmur, regular rhythm. ABDOMEN: Abdominal catheter in place. No hepatosplenomegaly, normal bowel sounds, no guarding or rigidity. SPINE: No scoliosis or deformity SKIN: No rashes CENTRAL NERVOUS SYSTEM: No focal deficits, tone is normal in all 4 extremities. EXTREMITIES: There is no peripheral edema. No clubbing, no cyanosis. Peripheral pulses are intact. - Labs CBC & Chem 7: 04/30/23 06:44 04/30/23 06:44 Labs: Abnormal Lab Results - Last 24 Hours (Table) 04/30/23 04/30/23 Range/Units 06:44 06:44 RBC 3.60 L (3.80-5.40) m/uL Hgb 10.3 L (11.4-16.0) gm/dL Hct 32.2 L (34.0-46.0) % Plt Count 603 H (150-450) k/uL Carbon Dioxide 20 L (22-30) mmol/L Glucose 112 H (74-99) mg/dL Calcium 8.2 L (8.4-10.2) mg/dL AST 45 H (14-36) U/L ALT 68 H (4-34) U/L Alkaline Phosphatase 248 H (38-126) U/L Total Protein 6.2 L (6.3-8.2) g/dL Albumin 2.5 L (3.5-5.0) g/dL Microbiology - Last 24 Hours (Table) 04/28/23 12:00 Gram Stain - Preliminary Aspirate Body Fluid Culture - Preliminary Assessment and Plan Assessment: Acute hypoxemic respiratory failure secondary to suspected community-acquired pneumonia. Pro-calcitonin 6.07. Currently on Unasyn. Recovered and on room air Bacteremia secondary to beta hemolytic streptococcus F. Currently on Unasyn. Cholecystitis and liver abscess may be contributing and CT suggests pneumobilia Complex liver abscess measuring 8.8 x 7.2 x 7.0 cm. Computed tomography scan of the abdomen and pelvis revealed a right-sided liver lesion, most consistent with liver abscess. Cholelithiasis with surrounding inflammatory changes. Consistent with cholecystitis. Gas seen extending to the common bile duct to the sphincter of Shay. May represent sphincter of Shay dysfunction. HIDA scan shows a large photopenic defect involving the right lobe of the liver corresponding to the CT mass/abscess. Positive for cholecystitis. Drainage tube placed into the liver abscess on 04/28/2023. Febrile illness secondary to above, recovered Leukocytosis secondary to above, recovered Mild transaminitis secondary to above, improving History of hypertension Hyperlipidemia Coronary disease with previous stent placement 7 Diabetes mellitus, type II Plan: The patient was seen and evaluated Medications and labs reviewed Continue Unasyn Stable and on room air Increase her activity as tolerated We will continue to follow I have personally seen and examined the patient, performed the documentation and the assessment and plan as written. Number of minutes spent on the visit: 10.
--- NOTE | 2023-04-30 13:31 | P.PN ---
Subjective Progress Note Date: 04/30/23 CHIEF COMPLAINT: Sepsis HISTORY OF PRESENT ILLNESS: The patient is a 77-year-old female admitted with sepsis including pneumonia. Patient denies any abdominal pain. HIDA scan result reports correlate for cholecystitis. Patient is status post CT-guided hepatic abscess drainage with IR service. Per IR service patient not a candidate for percutaneous cholecystostomy tube. Gallbladder was not distended and no safe access route. Patient has had no further fevers. Denies any abdominal pain. Denies any nausea or vomiting. WBC has normalized at 10.6 H to be 10.3 liver enzymes are trending downwards. Fluid culture from drain is pending. Drain with 20 mL serosanguineous output PHYSICAL EXAM: VITAL SIGNS: Reviewed GENERAL: Well-developed in no acute distress. HEENT: No sclera icterus. Extraocular movements grossly intact. Moist buccal mucosa. Head is atraumatic, normocephalic. Hears conversational speech. No nasal drainage. NECK: Supple without lymphadenopathy. CHEST: Non-labored respirations and equal bilateral excursions. CARDIOVASCULAR: Palpable 2+ radial pulses. ABDOMEN: Soft. Nondistended. Nontender. Hepatic drain in place on right side of abdomen MUSCULOSKELETAL: No clubbing or cyanosis. NEUROLOGIC: No focal or lateralizing signs. Cranial nerves II through XII grossly intact. PSYCH: Appropriate affect. Alert and oriented to person, place and time. SKIN: Well perfused. Good skin turgor. ASSESSMENT: 1. Cholecystitis per imaging 2. Pneumonia 3. Coronary artery disease status post stent 4. History of myocardial infarction 5. Liver neoplasm, liver abscess status post drain placement 6. Sepsis 7. Bacteremia PLAN: -Patient's white count has normalized. LFTs are trending downwards. Patient can be discharged from surgical standpoint when medically cleared -Discharge antibiotics per ID service -Recommend patient follows up with ID service outpatient -Possible cholecystectomy outpatient after liver abscess has resolved and antibiotic treatment is completed -Continue low-fat diet Physician Furnace Keeper note has been reviewed by physician. Signing provider agrees with the documented findings, assessment, and plan of care. Objective - Vital Signs Vital signs: Vital Signs Temp 98.1 F 04/30/23 07:22 Pulse 71 04/30/23 07:22 Resp 18 04/30/23 08:00 BP 145/69 04/30/23 07:22 Pulse Ox 95 04/30/23 07:22 FiO2 Intake & Output 04/29/23 04/30/23 04/30/23 18:59 06:59 18:59 Output Total 50 20 Balance -50 -20 Output: Drainage 50 20 Right Abdomen 50 20 Other: Voiding Method Toilet Toilet Toilet # Voids 3 2 - Labs CBC & Chem 7: 04/30/23 06:44 04/30/23 06:44 Labs: Abnormal Lab Results - Last 24 Hours (Table) 04/30/23 04/30/23 Range/Units 06:44 06:44 RBC 3.60 L (3.80-5.40) m/uL Hgb 10.3 L (11.4-16.0) gm/dL Hct 32.2 L (34.0-46.0) % Plt Count 603 H (150-450) k/uL Carbon Dioxide 20 L (22-30) mmol/L Glucose 112 H (74-99) mg/dL Calcium 8.2 L (8.4-10.2) mg/dL AST 45 H (14-36) U/L ALT 68 H (4-34) U/L Alkaline Phosphatase 248 H (38-126) U/L Total Protein 6.2 L (6.3-8.2) g/dL Albumin 2.5 L (3.5-5.0) g/dL Microbiology - Last 24 Hours (Table) 04/28/23 12:00 Gram Stain - Preliminary Aspirate Body Fluid Culture - Preliminary
--- NOTE | 2023-04-30 14:48 | P.PN ---
Subjective Progress Note Date: 04/30/23 This is a pleasant 77 years old female with past medical history of Hyperlipidemia, Hypertension, Heart Catheterization With Stent x7 Patient presents because of worsening dyspnea and generalized weakness. Her weakness and all started after she got a shot last Thursday, she got sick and she wants to see her PCP Dr. Lawton will advise her to go to the emergency room but patient decided to wait because her was sick, she was getting worse so she eventually came to the emergency room. She has cough with little chest pain with deep inspiration. She hasn't been eating well for the last 2-3 days. She denies smoking alcohol or illicit drugs. She denies GI, urinary, or neurological symptoms On admission she had a fever of 101.7. Patient is saturating 88% to 93% on room air Labs showing leukocytosis of 21.8. Rest of CBC, INR, BMP is unremarkable Enzymes mildly elevated with AST 67 and ALT 69. Viruses and detected, influenza, RSV at [facility] EKG showed sinus tachycardia and [address]-T changes and LVH. Chest x-ray: Posterior lung bases streaky opacities. Correlate for atelectasis or pneumonia Patient was started with sutures and Zithromax and admitted to the hospital 04/23/2023 Patient feels better but lots of chills. She feels weak but improving, patient stated she started getting around better. She eats well. She had occasional nausea and Zofran is added Vitals are stable Blood culture came back positive for gram-positive cocci in chains Has leukocytosis of 23,000, liver enzymes are stable and mildly elevated She remains on ceftriaxone, Zithromax and normal saline 75 mL/h 04/24/2023 Patient generally feels better with less chills and no nausea. She still feels generally weak. No respiratory symptoms no chest pain or dyspnea even with exertion. No abdominal pain but patient reports diarrhea about 2 bouts of loose stool this morning Blood culture came back positive for beta hemolytic Streptococcus, GI source is suspected. Therefore ultrasound of the abdomen showing possible cholecystitis but patient is asymptomatic. Computed tomography scan admission also showed pneumobilia most likely the source of bacteremia. Also showing liver mass and CAT scan of the abdomen is no significant 04/25/[address] of the abdomen and pelvis today for her liver lesion seen on ultrasound and showing abscess large 8.6 x 7 cm as well as acute cholecystitis and pneumobilia suspicious for sphincter of 40 dysfunction. Most likely it is the source for patient's Streptococcus bacteremia. Clinically patient looks comfortable not in distress. No abdominal pain or tenderness. Her main complaint is feeling generalized weakness. Cardiology evaluation for preop assessment is obtained and the recommended echocardiogram which is pending for now. Antibiotic was changed to Unasyn 04/26/2023 Patient sitting up in chair, her main complaint was generalized weakness with partial improvement. Patient denies any other complaints. She denies right upper quadrant pain. No nausea vomiting. Patient with evidence of Streptococcus bacteremia Also patient has asymmetric, minimally symptomatic acute cholecystitis and evidence of liver abscess Surgery team on the case will plan for aspiration of the abscess. Currently continued with Unasyn and normal saline at 75 mL/h Plan of care and problem is discussed with the patient details and she verbalized understanding and acceptance to the management plan 04/27/2023 She still feels tired and exhausted. No significant right upper quadrant pain and tenderness. Surgery team recommended drainage of the abscess by IR team, however they could not do it because patient already took aspirin yesterday. Today patient did not take aspirin and he'll follow-up with surgery team for further recommendation regarding her liver abscess and cholecystitis. In the meantime she remains on Unasyn normal sinus 75 mL per 04/28/2023 Patient is currently resting in bed. Awake alert and oriented x3. Abdominal discomfort/pain is better. Patient is status post drainage of hepatic abscess with a drain tube placement today. Patient has been afebrile. No nausea or vomiting. Tolerating oral diet. Patient is being current on antibiotics in the form of Unasyn and also on IV h ydration with D5 half normal saline. Blood cultures growing beta-hemolytic Streptococcus. Laboratory data reviewed. 04/29/2023 Patient is resting in bed. On room air. Awake alert and oriented. Hepatic abscess drain to with purulent/serosanguineous fluid. Patient does have beta- hemolytic Streptococcus bacteremia. Continued on antibiotics of cefepime. Patient has been afebrile. No nausea vomiting or abdominal pain or diarrhea. No cough or sputum production. Tolerating oral diet. Laboratory pressure WBC 15.8 hemoglobin 11.1 and platelets 569 Sodium 136 potassium 3.5 chloride 102 bicarb is 24 BUN 9 and creatinine 0.16 blood sugar is 199. Pulmonary, ID and general surgery is on board. 04/30. Patient seen and examined. Blood work done this morning show sodium 138, potassium 3.8, BUN 8, creatinine 0.61, AST 45, ALT 68. States abdominal pain has improved. Denies any nausea or vomiting REVIEW OF SYSTEMS: CONSTITUTIONAL: No fever, no malaise,. CARDIOVASCULAR: No chest pain, no palpitations, no syncope. PULMONARY: No shortness of breath, no cough, GASTROINTESTINAL: No diarrhea, no nausea, no vomiting, no abdominal pain. NEUROLOGICAL: No headaches, no weakness, PHYSICAL EXAMINATION: GENERAL: The patient is alert and oriented x3, not in any acute distress. Well developed, well nourished. HEENT: Pupils are round and equally reacting to light. EOMI. No scleral icterus. No conjunctival pallor. Normocephalic, atraumatic. No pharyngeal erythema. No thyromegaly. CARDIOVASCULAR: S1 and S2 present. No murmurs, rubs, or gallops. PULMONARY: Chest is clear to auscultation, no wheezing or crackles. ABDOMEN: Soft, nontender, nondistended, normoactive bowel sounds. Drain seen MUSCULOSKELETAL: No joint swelling or deformity. EXTREMITIES: No cyanosis, clubbing, or pedal edema. NEUROLOGICAL: Gross neurological examination did not reveal any focal deficits. SKIN: No rashes. Assessment and plan Liver abscess 8.6 x 7 cm Status post hepatic drain placement IR guided on 04/28/2023. Sepsis Gram-positive bacteremia Acute hypoxemic respiratory failure secondary to suspected community-acquired pneumonia. Cholecystitis, acute as per CT Pneumobilia suspicious for sphincter of Shay dysfunction Liver Mass Mild transaminitis Hypertension Hyperlipidemia History of coronary artery disease status post stent 7 Obesity with BMI of 31.9 Plan: Vital signs Monitor CBC Monitor CMP Continue losartan, Toprol Status post hepatic drain placement IR guided on 04/28/2023. Continue Unasyn ID following Pulmonology following Gen. surgery following Labs and medication were reviewed.. Continue same treatment. Continue with symptomatic treatment. Resume home medication. Monitor labs and vitals. DVT and GI prophylaxis. Further recommendations as per clinical course of the patient Dictation was produced using [employer] dictation software. please excuse any grammatical, word or spelling errors. Objective - Vital Signs Vital signs: Vital Signs Temp 98.1 F 04/30/23 07:22 Pulse 71 04/30/23 07:22 Resp 18 04/30/23 08:00 BP 145/69 04/30/23 07:22 Pulse Ox 95 04/30/23 07:22 FiO2 Intake & Output 04/29/23 04/30/23 04/30/23 18:59 06:59 18:59 Output Total 50 20 Balance -50 -20 Output: Drainage 50 20 Right Abdomen 50 20 Other: Voiding Method Toilet Toilet Toilet # Voids 3 2 - Labs CBC & Chem 7: 04/30/23 06:44 04/30/23 06:44 Labs: Abnormal Lab Results - Last 24 Hours (Table) 04/30/23 04/30/23 Range/Units 06:44 06:44 RBC 3.60 L (3.80-5.40) m/uL Hgb 10.3 L (11.4-16.0) gm/dL Hct 32.2 L (34.0-46.0) % Plt Count 603 H (150-450) k/uL Carbon Dioxide 20 L (22-30) mmol/L Glucose 112 H (74-99) mg/dL Calcium 8.2 L (8.4-10.2) mg/dL AST 45 H (14-36) U/L ALT 68 H (4-34) U/L Alkaline Phosphatase 248 H (38-126) U/L Total Protein 6.2 L (6.3-8.2) g/dL Albumin 2.5 L (3.5-5.0) g/dL Microbiology - Last 24 Hours (Table) 04/28/23 12:00 Gram Stain - Preliminary Aspirate Body Fluid Culture - Preliminary
[2023-04-30] MEDS: SODIUM CHLORIDE 0.9% 1,000 ML IV SCH (15:55)
[2023-04-30] MEDS: HYDROmorphone 0.5 MG/0.5 ML SYRINGE IVP PRN (20:49)
--- NOTE | 2023-04-30 23:42 | P.PN ---
Subjective Progress Note Date: 04/30/23 Principal diagnosis: Bacteremia possible cholecystitis Patient is a 77-year-old female with a past medical history significant for diabetes mellitus hypertension hyperlipidemia angina presented to the hospital for evaluation of increasing shortness of breath, patient no ticed to be septic with initial concern for possible pneumonia CT angiogram did not show any consolidation and a blood cultures positive for group F strep. Patient is status post CT-guided drainage of the liver abscess on 04/28/2023 On today's evaluation that is 04/30/2023, the patient denies any fever or any chills, the patient is breathing comfortably on room air and no need for supplemental oxygen , the patient denies chest pain or cough, patient denies abdominal pain, no nausea/vomiting and no diarrhea has been reported Patient white count normalized to 10.6, creatinine is 0.61 , abdominal ultrasound suggesting of cholecystitis, CT of abdominal pelvis suspicious for liver abscess Objective - Vital Signs Vital signs: Vital Signs Temp 97.8 F 04/30/23 14:00 Pulse 80 04/30/23 14:00 Resp 17 04/30/23 14:00 BP 151/80 04/30/23 14:00 Pulse Ox 95 04/30/23 14:00 FiO2 Intake & Output 04/29/23 04/30/23 04/30/23 18:59 06:59 18:59 Output Total 50 20 Balance -50 -20 Output: Drainage 50 20 Right Abdomen 50 20 Other: Voiding Method Toilet Toilet Toilet # Voids 3 2 - Exam GENERAL DESCRIPTION: An elderly female up in the chair in no distress RESPIRATORY SYSTEM: Unlabored breathing , decreased breath sounds at bases HEART: S1 S2 regular rate and rhythm , ABDOMEN: Soft , no tenderness EXTREMITIES: No edema feet - Labs CBC & Chem 7: 04/30/23 06:44 04/30/23 06:44 Labs: Abnormal Lab Results - Last 24 Hours (Table) 04/30/23 04/30/23 Range/Units 06:44 06:44 RBC 3.60 L (3.80-5.40) m/uL Hgb 10.3 L (11.4-16.0) gm/dL Hct 32.2 L (34.0-46.0) % Plt Count 603 H (150-450) k/uL Carbon Dioxide 20 L (22-30) mmol/L Glucose 112 H (74-99) mg/dL Calcium 8.2 L (8.4-10.2) mg/dL AST 45 H (14-36) U/L ALT 68 H (4-34) U/L Alkaline Phosphatase 248 H (38-126) U/L Total Protein 6.2 L (6.3-8.2) g/dL Albumin 2.5 L (3.5-5.0) g/dL Microbiology - Last 24 Hours (Table) 04/28/23 12:00 Gram Stain - Preliminary Aspirate Body Fluid Culture - Preliminary Assessment and Plan (1) Bacteremia Current Visit: Yes Status: Acute Code(s): R78.81 - BACTEREMIA SNOMED Code(s): 9749810 (2) Abnormal ultrasound of abdomen Current Visit: Yes Status: Acute Code(s): R93.5 - ABN FINDINGS ON DX IMAGING OF ABD REGIONS, INC RETROPERITON SNOMED Code(s): 19357869105464905 Plan: 1patient present to hospital with sepsis in this patient with a fever tachycardia hypoxemia elevated white count with concern for possible pneumonia however the patient also have elevated liver enzymes and abnormal CT angiogram of the chest with some pneumobilia concern for possible intra-abdominal source not entirely excluded 2- ultrasound of the liver and gallbladder area suspicious for cholecystitis, Gen. surgery has been consulted, patient did have a CT of abdominal pelvis with evidence of liver abscess patient is status post I R drainage of this abscess on 04/28/2023 3Patient to continue Unasyn 3 g every 6 hours , plan is for IV unsayn x 2 weeks on dc family at bedside and questions were answered Dictation was produced using [employer] dictation software. please excuse any grammatical, word or spelling errors. Time with Patient: Less than 30
[2023-05-01] MEDS: HEPARIN SODIUM,PORCINE 5,000 UNIT/ML 1 ML VIAL SQ SCH ×3 (01:08→16:37)
[2023-05-01] MEDS: AMPICILLIN-SULBACTAM 3 GM in SODIUM CHLORIDE 0.9% 100 ML IVPB SCH ×3 (04:29→16:21)
[2023-05-01] MEDS: METOPROLOL SUCCINATE (ER) 50 MG TAB.ER.24H PO SCH (08:21)
[2023-05-01] MEDS: FAMOTIDINE 20 MG TAB PO SCH (08:21)
[2023-05-01] MEDS: LOSARTAN 50 MG TAB PO SCH (08:21)
--- NOTE | 2023-05-01 10:33 | P.DS ---
Providers Date of admission: 04/21/23 21:35 Expected date of discharge: 05/01/23 Attending physician: Arnol Feliciano Consults: 04/22/23 07:50 Consult Physician Routine Consulting Provider: Alexandra Juan Consult Reason/Comments: pna Do you want consulting provider notified?: Yes 04/23/23 07:19 Consult Physician Routine Consulting Provider: Carla Fitzgerald Consult Reason/Comments: septicemia Do you want consulting provider notified?: Yes 04/24/23 17:21 Consult Physician Urgent Consulting Provider: Shannon Manrique Consult Reason/Comments: abnormal US--- cholecystitis Do you want consulting provider notified?: Yes 04/25/23 14:02 Consult Physician Routine Consulting Provider: Abdi Chandler Consult Reason/Comments: Cardiac risk assessment, surgery Do you want consulting provider notified?: Yes Primary care physician: Anabelle Lawton Hospital Course: Discharge diagnoses; Liver abscess 8.6 x 7 cm Status post hepatic drain placement IR guided on 04/28/2023. Sepsis Gram-positive bacteremia Acute hypoxemic respiratory failure secondary to suspected community-acquired pneumonia. Cholecystitis, acute as per CT Pneumobilia suspicious for sphincter of Shay dysfunction Liver Mass Mild transaminitis Hypertension Hyperlipidemia History of coronary artery disease status post stent 7 Obesity with BMI of 31.9 Hospital course; This is a pleasant 77 years old female with past medical history of Hyperlipidemia, Hypertension, Heart Catheterization With Stent x7 Patient presents because of worsening dyspnea and generalized weakness. Her weakness and all started after she got a shot last Thursday, she got sick and she wants to see her PCP Dr. Lawton will advise her to go to the emergency room but patient decided to wait because her was sick, she was getting worse so she eventually came to the emergency room. She has cough with little chest pain with deep inspiration. She hasn't been eating well for the last 2-3 days. She denies smoking alcohol or illicit drugs. She denies GI, urinary, or neurological symptoms On admission she had a fever of 101.7. Patient is saturating 88% to 93% on room air Labs showing leukocytosis of 21.8. Rest of CBC, INR, BMP is unremarkable Enzymes mildly elevated with AST 67 and ALT 69. Viruses and detected, influenza, RSV at [facility] EKG showed sinus tachycardia and [address]-T changes and LVH. Chest x-ray: Posterior lung bases streaky opacities. Correlate for atelectasis or pneumonia Patient was started with sutures and Zithromax and admitted to the hospital 04/23/2023 Patient feels better but lots of chills. She feels weak but improving, patient stated she started getting around better. She eats well. She had occasional nausea and Zofran is added Vitals are stable Blood culture came back positive for gram-positive cocci in chains Has leukocytosis of 23,000, liver enzymes are stable and mildly elevated She remains on ceftriaxone, Zithromax and normal saline 75 mL/h 04/24/2023 Patient generally feels better with less chills and no nausea. She still feels generally weak. No respiratory symptoms no chest pain or dyspnea even with exertion. No abdominal pain but patient reports diarrhea about 2 bouts of loose stool this morning Blood culture came back positive for beta hemolytic Streptococcus, GI source is suspected. Therefore ultrasound of the abdomen showing possible cholecystitis but patient is asymptomatic. Computed tomography scan admission also showed pneumobilia most likely the source of bacteremia. Also showing liver mass and CAT scan of the abdomen is no significant 04/25/[address] of the abdomen and pelvis today for her liver lesion seen on ultrasound and showing abscess large 8.6 x 7 cm as well as acute cholecystitis and pneumobilia suspicious for sphincter of 40 dysfunction. Most likely it is the source for patient's Streptococcus bacteremia. Clinically patient looks comfortable not in distress. No abdominal pain or tenderness. Her main complaint is feeling generalized weakness. Cardiology evaluation for preop assessment is obtained and the recommended echo cardiogram which is pending for now. Antibiotic was changed to Unasyn 04/26/2023 Patient sitting up in chair, her main complaint was generalized weakness with partial improvement. Patient denies any other complaints. She denies right upper quadrant pain. No nausea vomiting. Patient with evidence of Streptococcus bacteremia Also patient has asymmetric, minimally symptomatic acute cholecystitis and evidence of liver abscess Surgery team on the case will plan for aspiration of the abscess. Currently continued with Unasyn and normal saline at 75 mL/h Plan of care and problem is discussed with the patient details and she verbalized understanding and acceptance to the management plan 04/27/2023 She still feels tired and exhausted. No significant right upper quadrant pain and tenderness. Surgery team recommended drainage of the abscess by IR team, however they could not do it because patient already took aspirin yesterday. Today patient did not take aspirin and he'll follow-up with surgery team for further recommendation regarding her liver abscess and cholecystitis. In the meantime she remains on Unasyn normal sinus 75 mL per 04/28/2023 Patient is currently resting in bed. Awake alert and oriented x3. Abdominal discomfort/pain is better. Patient is status post drainage of hepatic abscess with a drain tube placement today. Patient has been afebrile. No nausea or vomiting. Tolerating oral diet. Patient is being current on antibiotics in the form of Unasyn and also on IV hydration with D5 half normal saline. Blood cultures growing beta-hemolytic Streptococcus. Laboratory data reviewed. 04/29/2023 Patient is resting in bed. On room air. Awake alert and oriented. Hepatic abscess drain to with purulent/serosanguineous fluid. Patient does have beta- hemolytic Streptococcus bacteremia. Continued on antibiotics of cefepime. Patient has been afebrile. No nausea vomiting or abdominal pain or diarrhea. No cough or sputum production. Tolerating oral diet. Laboratory pressure WBC 15.8 hemoglobin 11.1 and platelets 569 Sodium 136 potassium 3.5 chloride 102 bicarb is 24 BUN 9 and creatinine 0.16 blood sugar is 199. Pulmonary, ID and general surgery is on board. 04/30. Patient seen and examined. Blood work done this morning show sodium 138, potassium 3.8, BUN 8, creatinine 0.61, AST 45, ALT 68. States abdominal pain has improved. Denies any nausea or vomiting 05/01. Patient seen and examined. Discussed with ID, they recommended starting patient on IV Unasyn for 2 weeks. Outpatient follow-up with ID and surgery PHYSICAL EXAMINATION: GENERAL: The patient is alert and oriented x3, not in any acute distress. Well developed, well nourished. HEENT: Pupils are round and equally reacting to light. EOMI. No scleral icterus. No conjunctival pallor. Normocephalic, atraumatic. No pharyngeal erythema. No thyromegaly. CARDIOVASCULAR: S1 and S2 present. No murmurs, rubs, or gallops. PULMONARY: Chest is clear to auscultation, no wheezing or crackles. ABDOMEN: Soft, nontender, nondistended, normoactive bowel sounds. No palpable organomegaly. Drain seen MUSCULOSKELETAL: No joint swelling or deformity. EXTREMITIES: No cyanosis, clubbing, or pedal edema. NEUROLOGICAL: Gross neurological examination did not reveal any focal deficits. SKIN: No rashes. Dictation was produced using [employer] dictation software. please excuse any grammatical, word or spelling errors. Patient Condition at Discharge: Fair Plan - Discharge Summary New Discharge Prescriptions: New Ampicillin-Sulbactam [Unasyn 3 gm vial] 3 gm IVPB Q6H 14 Days #56 each Continue Metoprolol Succinate (ER) [Toprol XL] 50 mg PO BID Rosuvastatin Calcium 5 mg PO HS Dapagliflozin Propanediol [Farxiga] 5 mg PO DAILY Aspirin EC [Ecotrin Low Dose] 81 mg PO DAILY Losartan [Cozaar] 50 mg PO BID Discharge Medication List Metoprolol Succinate (ER) [Toprol XL] 50 mg PO BID 07/14/19 [History] Aspirin EC [Ecotrin Low Dose] 81 mg PO DAILY 04/21/23 [History] Dapagliflozin Propanediol [Farxiga] 5 mg PO DAILY 04/21/23 [History] Losartan [Cozaar] 50 mg PO BID 04/21/23 [History] Rosuvastatin Calcium 5 mg PO HS 04/21/23 [History] Ampicillin-Sulbactam [Unasyn 3 gm vial] 3 gm IVPB Q6H 14 Days #56 each 05/01/23 [Rx] Follow up Appointment(s)/Referral(s): Anabelle Lawton MD [Primary Care Provider] - 1-2 days Carla Fitzgerald MD [STAFF PHYSICIAN] - 1 Week Discharge Disposition: TRANSFER TO SNF/ECF
[2023-05-01] MEDS: ALPRAZolam 0.5 MG TAB PO PRN (11:01)
[2023-05-01] MEDS ORDERED: LIDOCAINE 1% PF 10 MG/ML (5 ML AMP) SQ ONE (11:19)
--- NOTE | 2023-05-01 12:18 | IR ---
PICC LINE PLACEMENT: HISTORY: Infection requiring long-term antibiotic therapy PROCEDURE: Ultrasound and fluoroscopic guidance of PICC line placement. COMPLICATIONS: None ANESTHESIA: 1. 1% Lidocaine locally. FINDINGS/TECHNIQUE: The procedure was explained to the patient. The risks, complications, benefits and alternatives were discussed and any questions were answered. Informed consent was obtained. The patient was placed supine on the fluoroscopic table and prepped and draped in the usual sterile fash ion. Utilizing a 21 gauge needle and sonographic and fluoroscopic guidance, access in the right cep halic vein was achieved and there is placement of a 0.018 guidewire. The vein is patent. A 4-F carr th was placed over the guidewire. The guidewire and dilator were removed and a 4-F. PICC line was pl aced through the sheath with the tip at the level of the SVC. The sheath was removed, the catheter w as flushed and sutured into position. The patient was stable throughout the procedure and remained s table upon discharge from the Department of Radiology. The vein puncture was patent under ultrasound. A herman scale image was obtained to document patency of the vein punctured. All elements of the maximal barrier technique were utilized. FLUOROSCOPY TIME: DAP 3.12Gy cm2 IMPRESSION: Successful PICC line placement under ultrasound and fluoroscopic guidance.
--- NOTE | 2023-05-01 12:35 | P.PN ---
Subjective Progress Note Date: 05/01/23 CHIEF COMPLAINT: Sepsis HISTORY OF PRESENT ILLNESS: The patient is a 77-year-old female admitted with sepsis including pneumonia. Patient denies any abdominal pain. HIDA scan result reports correlate for cholecystitis. Patient is status post CT-guided hepatic abscess drainage with IR service. Per IR service patient not a candidate for percutaneous cholecystostomy tube. Gallbladder was not distended and no safe access route. Patient scheduled for PICC line placement for outpatient IV antibiotics. She denies any abdominal pain. She's tolerating diet. She's afebrile. WBC 10.6 drain with 40 mL serosanguineous drainage PHYSICAL EXAM: VITAL SIGNS: Reviewed GENERAL: Well-developed in no acute distress. HEENT: No sclera icterus. Extraocular movements grossly intact. Moist buccal mucosa. Head is atraumatic, normocephalic. Hears conversational speech. No nasal drainage. NECK: Supple without lymphadenopathy. CHEST: Non-labored respirations and equal bilateral excursions. CARDIOVASCULAR: Palpable 2+ radial pulses. ABDOMEN: Soft. Nondistended. Nontender. Hepatic drain in place on right side of abdomen MUSCULOSKELETAL: No clubbing or cyanosis. NEUROLOGIC: No focal or lateralizing signs. Cranial nerves II through XII grossly intact. PSYCH: Appropriate affect. Alert and oriented to person, place and time. SKIN: Well perfused. Good skin turgor. ASSESSMENT: 1. Cholecystitis per imaging 2. Pneumonia 3. Coronary artery disease status post stent 4. History of myocardial infarction 5. Liver neoplasm, liver abscess status post drain placement 6. Sepsis 7. Bacteremia PLAN: -Patient's white count has normalized. LFTs are trending downwards. Patient can be discharged from surgical standpoint when medically cleared -Recommend that patient follows up with a liver specialist outpatient -Discharge antibiotics per ID service -Recommend patient follows up with ID service outpatient -Continue low-fat diet -No surgical intervention planned at this time Physician Insurance Sales Specialist note has been reviewed by physician. Signing provider agrees with the documented findings, assessment, and plan of care. Objective - Vital Signs Vital signs: Vital Signs Temp 97.9 F 05/01/23 06:37 Pulse 76 05/01/23 06:37 Resp 18 05/01/23 06:37 BP 156/78 05/01/23 06:37 Pulse Ox 95 05/01/23 06:37 FiO2 Intake & Output 04/30/23 05/01/23 05/01/23 18:59 06:59 18:59 Intake Total 200 800 Output Total 40 Balance 200 760 Intake: Intake, IV Titration 800 Amount Ampicillin-Sulbactam 3 gm 200 In Sodium Chloride 0.9% 100 ml @ 200 mls/hr IVPB Q6H [facility] Rx#:[id number] Sodium Chloride 0.9% 1, 600 000 ml @ 50 mls/hr IV . Q20H [facility] Rx#:[id number] Oral 200 Output: Drainage 40 Right Abdomen 40 Other: Voiding Method Toilet Toilet # Voids 3 3 - Labs CBC & Chem 7: 04/30/23 06:44 04/30/23 06:44 Labs: Microbiology - Last 24 Hours (Table) 04/28/23 12:00 Gram Stain - Preliminary Aspirate Body Fluid Culture - Preliminary
[2023-05-01 12:52] LABS: Basophils % (A) 0 %; Eosinophils # (A) 0.1 k/uL (0-0.7); Eosinophils % (A) 1 %; HCT 32.4 % (34.0-46.0); HGB 10.4 gm/dL (11.4-16.0); Hypochromasia Slight; Lymphocytes # (A) 1.8 k/uL (1.0-4.8); Lymphocytes % (A) 22 %; MCH 29.1 pg (25.0-35.0); MCHC 32.2 g/dL (31.0-37.0); MCV 90.5 fL (80.0-100.0); Mean Platelet Volume 7.5; Monocytes # (A) 0.3 k/uL (0-1.0); Monocytes % (A) 4 %; Neutrophils # (A) 5.7 k/uL (1.3-7.7); Neutrophils % (A) 71 %; Platelet Count 576 k/uL (150-450); RBC 3.59 m/uL (3.80-5.40); RDW 14.3 % (11.5-15.5); WBC 8.1 k/uL (3.8-10.6)
[2023-05-01 13:07] LABS: ALT 71 U/L (4-34); African American GFR (CKD) >90 (>60 ml/min/1.73 sqM); Albumin/Globulin Ratio 0.7; Anion Gap 8 mmol/L; Blood Urea Nitrogen 7 mg/dL (7-17); Carbon Dioxide 22 mmol/L (22-30); Chloride 106 mmol/L (98-107); Globulin 3.6 g/dL; Glucose 90 mg/dL (74-99); Non-African American GFR(CKD) >90 (>60 ml/min/1.73 sqM); Sodium 136 mmol/L (137-145); Total Bilirubin 0.6 mg/dL (0.2-1.3); Total Protein 6.2 g/dL (6.3-8.2)
[2023-05-01 13:12] LABS: Albumin 2.6 g/dL (3.5-5.0); Potassium 4.9 mmol/L (3.5-5.1)
[2023-05-01 13:13] LABS: AST 73 U/L (14-36); Alkaline Phosphatase 219 U/L (38-126)
[2023-05-01 14:04] VITALS: BP 178/82; PULSE 77; RESP 19; TEMP 98.4
[2023-05-01] MEDS: SODIUM CHLORIDE 0.9% 1,000 ML IV SCH (14:51)
--- NOTE | 2023-05-01 16:28 | P.PN ---
Subjective Progress Note Date: 05/01/23 This is a very pleasant 77-year-old female patient with a known history of hypertension, hyperlipidemia, diabetes mellitus, and coronary artery disease with 7 stents placed, lifelong nonsmoker. She presented here to the emergency room yesterday with a 2 week history of initially vomiting for a week then fever chills weakness shortness of breath and pleuritic-type chest pain. Chest x-ray revealed some posterior lung base streaky opacities. White count 21.8. Hemoglobin 14.2. Platelets 490. Sodium 135. Potassium 5.1. Bicarb 26. BUN 19. Creatinine 0.99. Glucose 157. AST 67. ALT is 69. D-dimer 2.15. Urinalysis cloudy with 4+ glucose 1+ ketones occasional bacteria. Influenza screen negative. RSV screen negative. COVID-19 screen negative. She did have a T-max of 101.7. She is seen today in consultation in the emergency department. She is currently resting comfortably on a stretcher. Awake and alert in no acute distress. She is maintaining O2 saturations in the mid 90s on 2 L nasal cannula. She's currently afebrile. Hemodynamically stable. She does have a loose nonproductive cough. The patient is seen today 04/23/2023 in follow-up on the regular medical floor. She is currently sitting up in a chair at the bedside. Awake and alert in no acute distress. Currently afebrile. Maintaining good O2 saturation in the 90s on room air. He mechanically stable. She is feeling a bit better today compared to yesterday. Not quite back to her baseline. White count 22.4. Hemoglobin 11.7. Platelets 472. Sodium 136. Potassium 4.5. Bicarb 21. BUN 13. Creatinine 0.87. CT angiogram of the chest was suboptimal but no significant large central or lobar branch pulmonary emboli. There is large pans of probable atelectasis in bilateral bases. Blood cultures are positive for gram-positive cocci in chains. White count 23.4. Hemoglobin 11.7. Sodium 136. Potassium 4.5. Bicarb 21. BUN 13. Creatinine 0.87. Glucose 133. She is currently on ceftriaxone. Remains on bronchodilators. Heparin for DVT prophylaxis. The patient is seen today 04/24/2023 in follow-up on the regular medical floor. She is awake and alert in no acute distress. Sitting up in a chair at the bedside. She denies any worsening shortness of breath, cough or congestion. Maintaining O2 saturations in the 90s on room air. She's afebrile. Hemodynamically stable. Ultrasound of the abdomen revealed evidence of cholelithiasis with thickened gallbladder walk relate with cholecystitis. There is a complex heterogenous lesion measuring up to 8.8 cm in the liver. Indeterminate right renal lesion. Blood cultures are positive for beta- hemolytic streptococcus F. Pro calcitonin was 6.07. White count 18.8. Hemoglobin 11.1. Sodium 139. Potassium 4.1. Bicarb 23. BUN 10. Creatinine 1.0. Glucose 111. AST 69. ALT 71. Alk phos 173. She is currently on Unasyn. D5 and half-normal saline at 75 ML's per hour. The patient is seen today 04/25/2023 in follow-up on the regular medical floor. She is sitting up in a chair at the bedside. Awake and alert in no acute distress. Denies any worsening shortness of breath, cough or congestion. She is maintaining good O2 saturations in the 90s on room air. She's been afebrile. Hemodynamically stable. Glucose 167. She remains on antibiotics in the form of Unasyn. D5.45 at 75 ML's per hour. Heparin for DVT prophylaxis. She did have another fever at 101.7 last evening. The patient is seen today 04/26/2023 in follow-up on the regular medical floor. She is awake and alert in no acute distress. Sitting up in a chair. Denies any worsening shortness of breath, cough or congestion. Maintaining good O2 saturations in the mid 90s on room air. Currently afebrile. Denies any significant abdominal discomfort. Computed tomography scan of the abdomen and pelvis revealed a right-sided liver lesion, most consistent with liver abscess. Cholelithiasis with surrounding inflammatory changes. Consistent with cholecystitis. Gas seen extending to the common bile duct to the sphincter of Shay. May represent sphincter of Shay dysfunction. Plan is for HIDA scan tomorrow. Chest x-ray showing mild cardiomegaly with bibasilar infiltrates/atelectasis. White count 15.8. Hemoglobin 9.8. Platelets 512. Sodium 136. Potassium 3.8. Bicarb 22. BUN 6. Creatinine 0.8. Glucose 133. AST 59. ALT 81. Alk phos 200. C-reactive protein 14.4. She is continued on Unasyn. The patient is seen today 04/27/2023 in follow-up on the regular medical floor. She is awake and alert in no acute distress. She did go down for a hepa tobiliary scan earlier this morning which did reveal a large photopenic defect involving the right lobe of the liver corresponding to CT mass/abscess. There is cholecystitis. Interventional radiology has been consulted for both a liver abscess drain and a Elizabeth cystostomy tube placement. Aspirin remains on hold. Blood cultures are positive for beta-hemolytic streptococcus F. White count 13.3. Hemoglobin 9.6. Platelets 498. Sodium 137. Potassium 3.7. Vicodin 22. BUN 6. Creatinine 0.7. Glucose 118. AST 70. ALT 88. Alk phos 218. She remains on Unasyn. Heparin for DVT prophylaxis. Bronchodilators as needed. The patient is seen today 04/28/2023 in follow-up on the regular medical floor. She is currently up in a chair at the bedside. Awake and alert in no acute distress. Maintaining good O2 saturations in the 90s on room air. Currently afebrile. Hemodynamically stable. Denies any worsening shortness of breath cough or congestion. Denies any significant abdominal discomfort. She is awaiting catheter placement to the hepatic abscess. Blood cultures were positive for beta-hemolytic streptococcus F. She remains on Unasyn. D5 and half-normal saline at 75 ML's per hour. The patient is seen today 04/29/2023 in follow-up on the regular medical floor. She remains up in a chair at the bedside. Awake and alert in no acute distress. She did have her catheter placed within the liver abscess and it continues to drain purulent fluid. Her blood cultures are positive for beta-hemolytic streptococcus F. She remains on Unasyn. She has D5 and half-normal saline at 75 ML's per hour. He is currently on room air. She's currently afebrile. Hemodynamically stable. White count 15.8. Hemoglobin 11.1. Platelet count 569. Sodium 136. Potassium 3.5. Bicarb 24. BUN 9. Creatinine 0.62. Glucose 199. The patient is seen today 04/30/2023 in follow-up on the regular medical floor. She is awake and alert in no acute distress. Sitting up in bed. Denies any worsening shortness of breath, cough or congestion. Maintaining good O2 saturations in the mid 90s on room air. She's afebrile. Hemodynamically stable. Blood cultures are positive for beta-hemolytic streptococcus F. White count 10.6. Hemoglobin 10.3. 603. Sodium 138. Potassium 3.8. Bicarb 20. BUN 8. Creatinine 0.61. Glucose 112. AST 45. ALT 68. Alk phos 248. She is continued on Unasyn. Remains on bronchodilators. Heparin for DVT prophylaxis. Normal saline at 50 MLS per hour. The patient is seen today 05/01/2023 in follow-up on the regular medical floor. She is sitting up in a chair. Awake and alert in no acute distress. She continues to maintain good O2 saturations in the 90s on room air. She's been afebrile. Blood cultures were positive for beta-hemolytic streptococcus F. Follow-up blood cultures pending. White count 8.1. Hemoglobin 10.4. Platelets 576. Sodium 136. Potassium 4.9. Bicarb 22. BUN 7. Creatinine 0.53. Glucose 90. AST 73. ALT 71. Alk phos 219. The plan is for a PICC line placement today. She is continued on Unasyn. Objective - Vital Signs Vital signs: Vital Signs Temp 98.4 F 05/01/23 12:21 Pulse 77 05/01/23 12:21 Resp 19 05/01/23 12:21 BP 178/82 05/01/23 12:21 Pulse Ox 93 L 05/01/23 12:21 FiO2 Intake & Output 04/30/23 05/01/23 05/01/23 18:59 06:59 18:59 Intake Total 200 800 Output Total 40 Balance 200 760 Intake: Intake, IV Titration 800 Amount Ampicillin-Sulbactam 3 gm 200 In Sodium Chloride 0.9% 100 ml @ 200 mls/hr IVPB Q6H [facility] Rx#:[id number] Sodium Chloride 0.9% 1, 600 000 ml @ 50 mls/hr IV . Q20H [facility] Rx#:[id number] Oral 200 Output: Drainage 40 Right Abdomen 40 Other: Voiding Method Toilet Toilet # Voids 3 3 - Exam GENERAL EXAM: Alert, pleasant 77-year-old female, on room air, up in a chair, comfortable in no apparent distress. HEAD: Normocephalic. EYES: Normal reaction of pupils, equal size. NOSE: Clear with pink turbinates. THROAT: No erythema or exudates. NECK: No masses, no JVD. CHEST: No chest wall deformity. LUNGS: Equal air entry with few scattered rhonchi. CVS: S1 and S2 normal with no audible murmur, regular rhythm. ABDOMEN: Abdominal catheter in place. No hepatosplenomegaly, normal bowel sounds, no guarding or rigidity. SPINE: No scoliosis or deformity SKIN: No rashes CENTRAL NERVOUS SYSTEM: No focal deficits, tone is normal in all 4 extremities. EXTREMITIES: There is no peripheral edema. No clubbing, no cyanosis. Peripheral pulses are intact. - Labs CBC & Chem 7: 05/01/23 12:13 05/01/23 12:13 Labs: Abnormal Lab Results - Last 24 Hours (Table) 05/01/23 05/01/23 Range/Units 12:13 12:13 RBC 3.59 L (3.80-5.40) m/uL Hgb 10.4 L (11.4-16.0) gm/dL Hct 32.4 L (34.0-46.0) % Plt Count 576 H (150-450) k/uL Sodium 136 L (137-145) mmol/L Calcium 8.0 L (8.4-10.2) mg/dL AST 73 H (14-36) U/L ALT 71 H (4-34) U/L Alkaline Phosphatase 219 H (38-126) U/L Total Protein 6.2 L (6.3-8.2) g/dL Albumin 2.6 L (3.5-5.0) g/dL Microbiology - Last 24 Hours (Table) 04/30/23 06:44 Blood Culture - Preliminary Blood 04/28/23 12:00 Gram Stain - Preliminary Aspirate Body Fluid Culture - Preliminary Assessment and Plan Assessment: Acute hypoxemic respiratory failure secondary to suspected community-acquired pneumonia. Pro-calcitonin 6.07. Currently on Unasyn. Recovered and on room air Bacteremia secondary to beta hemolytic streptococcus F. Currently on Unasyn. Cholecystitis and liver abscess may be contributing and CT suggests pneumobilia Complex liver abscess measuring 8.8 x 7.2 x 7.0 cm. Computed tomography scan of the abdomen and pelvis revealed a right-sided liver lesion, most consistent with liver abscess. Cholelithiasis with surrounding inflammatory changes. Consistent with cholecystitis. Gas seen extending to the common bile duct to the sphincter of Shay. May represent sphincter of Shay dysfunction. HIDA scan shows a large photopenic defect involving the right lobe of the liver corre sponding to the CT mass/abscess. Positive for cholecystitis. Drainage tube placed into the liver abscess on 04/28/2023. Plan is to remain on Unasyn. PICC line to be placed Febrile illness secondary to above, recovered Leukocytosis secondary to above, recovered Mild transaminitis secondary to above, improving History of hypertension Hyperlipidemia Coronary disease with previous stent placement 7 Diabetes mellitus, type II Plan: The patient was seen and evaluated Medications and labs reviewed Plan is for PICC line placement today Continue Unasyn 2 weeks Plan will be for subacute rehabilitation post discharge This patient was seen independently by the nurse practitioner I have personally seen and examined the patient, performed the documentation and the assessment and plan as written. Number of minutes spent on the visit: 24.
--- NOTE | 2023-05-01 16:35 | P.PN ---
Subjective Progress Note Date: 05/01/23 Principal diagnosis: Bacteremia possible cholecystitis Patient is a 77-year-old female with a past medical history significant for diabetes mellitus hypertension hyperlipidemia angina presented to the hospital for evaluation of increasing shortness of breath, patient no ticed to be septic with initial concern for possible pneumonia CT angiogram did not show any consolidation and a blood cultures positive for group F strep. Patient is status post CT-guided drainage of the liver abscess on 04/28/2023 On today's evaluation that is 05/01/2023, the patient remains to be afebrile the patient is breathing comfortably on room air without need for supplemental oxygen, the patient denies chest pain, shortness of breath or cough, patient denies nausea/vomiting , no diarrhea and no abdominal pain Patient white count of 8.1, creatinine is 0.53, abdominal ultrasound suggesting of cholecystitis, CT of abdominal pelvis suspicious for liver abscess Objective - Vital Signs Vital signs: Vital Signs Temp 97.9 F 05/01/23 06:37 Pulse 76 05/01/23 06:37 Resp 18 05/01/23 06:37 BP 156/78 05/01/23 06:37 Pulse Ox 95 05/01/23 06:37 FiO2 Intake & Output 04/30/23 05/01/23 05/01/23 18:59 06:59 18:59 Intake Total 200 800 Output Total 40 Balance 200 760 Intake: Intake, IV Titration 800 Amount Ampicillin-Sulbactam 3 gm 200 In Sodium Chloride 0.9% 100 ml @ 200 mls/hr IVPB Q6H [facility] Rx#:[id number] Sodium Chloride 0.9% 1, 600 000 ml @ 50 mls/hr IV . Q20H [facility] Rx#:[id number] Oral 200 Output: Drainage 40 Right Abdomen 40 Other: Voiding Method Toilet Toilet # Voids 3 3 - Exam GENERAL DESCRIPTION: An elderly female up in the chair in no distress RESPIRATORY SYSTEM: Unlabored breathing , decreased breath sounds at bases HEART: S1 S2 regular rate and rhythm , ABDOMEN: Soft , no tenderness EXTREMITIES: No edema feet - Labs CBC & Chem 7: 05/01/23 12:13 05/01/23 12:13 Labs: Microbiology - Last 24 Hours (Table) 04/28/23 12:00 Gram Stain - Preliminary Aspirate Body Fluid Culture - Preliminary Assessment and Plan (1) Bacteremia Current Visit: Yes Status: Acute Code(s): R78.81 - BACTEREMIA SNOMED Code(s): 6955542 (2) Abnormal ultrasound of abdomen Current Visit: Yes Status: Acute Code(s): R93.5 - ABN FINDINGS ON DX IMAGING OF ABD REGIONS, INC RETROPERITON SNOMED Code(s): 27215625605508803 Plan: 1patient present to hospital with sepsis in this patient with a fever tachycardia hypoxemia elevated white count with concern for possible pneumonia h owever the patient also have elevated liver enzymes and abnormal CT angiogram of the chest with some pneumobilia concern for possible intra-abdominal source not entirely excluded 2- ultrasound of the liver and gallbladder area suspicious for cholecystitis, Gen. surgery has been consulted, patient did have a CT of abdominal pelvis with evidence of liver abscess patient is status post I R drainage of this abscess on 04/28/2023 3Patient to continue Unasyn 3 g every 6 hours 2 weeks on discharge the patient will need a repeat CT of abdomin in 2 weeks before completion of her antibiotics to make sure resolution of the abscess Family the bedside and multiple questions were answered Dictation was produced using [employer] dictation software. please excuse any grammatical, word or spelling errors. Time with Patient: Less than 30
== END 2023-05-01 16:53 | DRG 871 ==
LOC: EC 16:16 → 4SSUR 21:35
PROVIDERS: ADMIT Internal Medicine; ATTEND Internal Medicine
PROC: 0F9030Z Drainage of Liver with Drainage Device, Percutaneous Approach (ICD-10-PCS; principal; 2023-04-28 13:00)
PROC: 05HC33Z Insertion of Infusion Device into Left Basilic Vein, Percutaneous Approach (ICD-10-PCS; 2023-04-28 13:00)
PROC: 05HB33Z Insertion of Infusion Device into Right Basilic Vein, Percutaneous Approach (ICD-10-PCS; 2023-04-29)
PROC: 02HV33Z Insertion of Infusion Device into Superior Vena Cava, Percutaneous Approach (ICD-10-PCS; 2023-05-01)
PROC: 02HV33Z Insertion of Infusion Device into Superior Vena Cava, Percutaneous Approach (ICD-10-PCS; 2023-05-01)
DX: A40.9 Streptococcal sepsis, unspecified (principal); J18.9 Pneumonia, unspecified organism; K75.0 Abscess of liver; J96.01 Acute respiratory failure with hypoxia; J98.11 Atelectasis; K80.10 Calculus of gallbladder with chronic cholecystitis without obstruction; E78.5 Hyperlipidemia, unspecified; Z20.822 Contact with and (suspected) exposure to COVID-19; E11.9 Type 2 diabetes mellitus without complications; I10 Essential (primary) hypertension; E66.9 Obesity, unspecified; Z68.31 Body mass index [BMI] 31.0-31.9, adult; I45.9 Conduction disorder, unspecified; Z79.82 Long term (current) use of aspirin; Z79.899 Other long term (current) drug therapy; Z79.02 Long term (current) use of antithrombotics/antiplatelets; Z79.2 Long term (current) use of antibiotics; Z79.84 Long term (current) use of oral hypoglycemic drugs; Z82.49 Family history of ischemic heart disease and other diseases of the circulatory system; Z83.3 Family history of diabetes mellitus; Z95.5 Presence of coronary angioplasty implant and graft
CPT/HCPCS: 36410; 36415; 36573; 71045; 71046; 71275; 74177; 75989; 76700; 76937; 78226; 80048; 80053; 80076; 81001; 83605; 84145; 85025; 85379; 85610; 85730; 86140; 87040; 87070; 87075; 87077; 87102; 87186; 87205; 87449; 87636; 89050; 93005; 93306; 94640; 94760; 96365; 96366; 96367; 96375; 99285

== ENCOUNTER → 2023-05-05 | Day surgery (SDC) | payer MEDICARE ==
[2023-05-05 11:16] VITALS: BP 145/74; PULSE 64; RESP 18; TEMP 97.4
== END ==
LOC: RADPROMAIN 09:56
PROVIDERS: ATTEND Radiology Diagnostic Radiology
DX: Z48.00 Encounter for change or removal of nonsurgical wound dressing (principal)
CPT/HCPCS: 99213

== ENCOUNTER 2023-05-18 12:24 | Day surgery (SDC) | payer MEDICARE ==
[2023-05-18 16:03] VITALS: BP 122/79; PULSE 74; RESP 18; TEMP 97.9
== END 2023-05-18 15:15 | disposition home or self-care (01) ==
LOC: RADPROMAIN 12:24
PROVIDERS: ATTEND Radiology Diagnostic Radiology
DX: Z48.03 Encounter for change or removal of drains (principal)
CPT/HCPCS: 99213

== ENCOUNTER → 2023-05-19 | Outpatient (CLI) | payer MEDICARE ==
[2023-05-19 15:05] LABS: African American GFR (CKD) 61 (>60 ml/min/1.73 sqM); Blood Urea Nitrogen 17 mg/dL (7-17); Non-African American GFR(CKD) 53 (>60 ml/min/1.73 sqM)
--- NOTE | 2023-05-20 07:54 | CT ---
EXAMINATION TYPE: CT abdomen w con DATE OF EXAM: 05/19/2023 COMPARISON: 04/25/2023 INDICATION: External tube placed on right side to drain kidney x 4 weeks DLP: 981.2 mGycm, Automated exposure control for dose reduction was used. CONTRAST: 80 cc mL of Isovue 300. Study performed with Oral Contrast TECHNIQUE: Axial images were obtained from above the diaphragm to the pubic rami in the axial plane a t 5 mm thick sections. Reconstructed images are reviewed on the computer in the coronal plane. FINDINGS: Limited CT sections are obtained the lung bases. Minimal right pleural effusion is present.. CT ABDOMEN: Liver: There is a drainage catheter into the mid right lobe liver. Minimal hypodensity is adjacent pr evious abscess has resolved. No suspicious air-fluid levels are evident. No residual collection ident ified. Spleen: Normal Pancreas: Normal Adrenal glands: The adrenal glands are normal. Gallbladder: Gallstones are suspected at the neck of the gallbladder. Some pericholecystic fluid is present. Clinical correlation recommended for acute cholecystitis. Kidneys: No masses are evident. No hydronephrosis is present. Cysts are present on the right kidney , largest measures 4.6 cm at the inferior lateral right kidney. Delayed images were obtained through the kidneys, which remain unremarkable. Aorta: Vascular calcification is within the aorta. Inferior vena cava: Normal. Loops of bowel within the abdomen and pelvis are normal. There are loops of bowel which are incom pletely distended or lack oral contrast limiting their evaluation. IMPRESSION: 1. Previous hepatic abscess appears to be drained. Drainage catheter remains in position. 2. Suspected gallstones at the neck of the gallbladder. Pericholecystic fluid is present adjacent. Co nsider acute cholecystitis.
== END | disposition home or self-care (01) ==
LOC: RADCTMAIN 14:21
PROVIDERS: ATTEND Internal Medicine Infectious Disease
DX: K75.0 Abscess of liver (principal)
CPT/HCPCS: 82565; 84520; 74160; 36415; Q9967

== ENCOUNTER → 2023-05-25 | Day surgery (SDC) | payer MEDICARE | LOC: RADPROMAIN 09:48 | PROVIDERS: ATTEND Internal Medicine Infectious Disease | DX: K75.0 Abscess of liver (principal) ==